=== PATIENT | female | born 1955 | race Caucasian/White ===

== ENCOUNTER → 2016-05-04 | Outpatient (REF) | payer BC ==
[~2016-05-04] MED LIST: LEVO25TA5 PO; MIRA3350 PO; NEXI40CA PO
[2016-05-04 11:46] LABS: MEAN CORPUSCULAR HEMOGLOBIN 31.9 pg (27.0-33.0); MEAN CORPUSCULAR VOLUME 93.8 fl (80.0-96.0); RED CELL DISTRIBUTION WIDTH 12.3 % (11.5-14.5)
[2016-05-04 11:58] LABS: ALBUMIN/GLOBULIN RATIO 1.25 (1.00-1.93); ALKALINE PHOSPHATASE 106 U/L (45-117); ALT/SGPT 27 U/L (12-78); ANION GAP 8 MEQ/L (8-16); AST/SGOT 16 U/L (15-37); BILIRUBIN,TOTAL 0.4 MG/DL (0.2-1.0); BLOOD UREA NITROGEN 15 MG/DL (7-18); CALCIUM LEVEL 9.4 MG/DL (8.5-10.1); CARBON DIOXIDE LEVEL 28 MEQ/L (21-32); CHLORIDE LEVEL 106 MEQ/L (98-107); CHOLESTEROL LEVEL 220 MG/DL (<200); CREATININE FOR GFR 0.84 MG/DL (0.55-1.02); GLOMERULAR FILTRATION RATE > 60.0 (>51); GLUCOSE, FASTING 113 MG/DL (70-105); POTASSIUM SERUM 4.9 MEQ/L (3.5-5.1); SODIUM LEVEL 142 MEQ/L (136-145); TOTAL PROTEIN 7.2 GM/DL (6.4-8.2); TRIGLYCERIDES LEVEL 255 MG/DL (<150)
== END ==
LOC: M SFHCLERA 07:53
PROVIDERS: ATTEND Physician Assistant
DX: K21.9 Gastro-esophageal reflux disease without esophagitis (principal); E78.2 Mixed hyperlipidemia; E55.9 Vitamin D deficiency, unspecified

== ENCOUNTER → 2016-06-10 | Outpatient (REF) | payer BC | LOC: M SFHCLERA 16:16 | PROVIDERS: ATTEND Physician Assistant | DX: J02.9 Acute pharyngitis, unspecified (principal) ==

== ENCOUNTER 2016-11-11 21:00 | Emergency (ER) | payer BC ==
[~2016-11-11] VITALS: Ht 165.1 cm; Wt 101.4 kg
[2016-11-11] MEDS ORDERED: MULT1CHW39 PO (21:16)
[2016-11-11] MEDS ORDERED: CALC500T49 PO (21:16)
[2016-11-11] MEDS ORDERED: PROBCAP4 PO (21:16)
[2016-11-11] MEDS ORDERED: VITA100067 PO (21:16)
[2016-11-11] MEDS ORDERED: ASPIRIN 81 MG CHEW TABLET PO ONE (22:15)
[2016-11-11] MEDS: NITROGLYCERIN 0.4 MG SUBL TABLET SL PRN ×2 (22:30→22:40)
[2016-11-11 22:50] LABS: BASO # 0.1 K/mm3 (0.0-0.2); EOS # 0.3 K/mm3 (0.0-0.50); EOS % 2.6 % (0.0-3.0); LARGE UNSTAINED CELL # 0.1 K/mm3 (0.0-0.4); LYMPH # 2.5 K/mm3 (1.5-4.5); LYMPH % 21.4 % (24.0-44.0); MEAN CORPUSCULAR HGB CONC 33.8 g/dl (32.0-36.5); MEAN CORPUSCULAR VOLUME 94.5 fl (80.0-96.0); MONO # 0.5 K/mm3 (0.0-0.8); MONO % 4.7 % (0.0-5.0); NEUTROPHILS # 7.8 K/mm3 (1.8-7.7); NEUTROPHILS % 69.3 % (36.0-66.0); PLATELET COUNT, AUTOMATED 229 k/mm3 (150-450); RED CELL DISTRIBUTION WIDTH 12.9 % (11.5-14.5); WHITE BLOOD COUNT 11.2 K/mm3 (4.0-10.0)
[2016-11-11 23:10] LABS: ANION GAP 7 MEQ/L (8-16); BLOOD UREA NITROGEN 15 MG/DL (7-18); CALCIUM LEVEL 9.3 MG/DL (8.5-10.1); CARBON DIOXIDE LEVEL 26 MEQ/L (21-32); CHLORIDE LEVEL 104 MEQ/L (98-107); CREATININE FOR GFR 0.86 MG/DL (0.55-1.02); GLOMERULAR FILTRATION RATE > 60.0 (>51); GLUCOSE, FASTING 119 MG/DL (70-105); POTASSIUM SERUM 4.7 MEQ/L (3.5-5.1); SODIUM LEVEL 137 MEQ/L (136-145)
[2016-11-12] MEDS ORDERED: HEPARIN DRIP 25,000 UNITS in APPROPRIATE DILUENT 1 EA IV SCH (05:14)
[2016-11-12] MEDS ORDERED: CLOPIDOGREL 300 MG TAB (PLAVIX) PO ONE (05:15)
[2016-11-12] MEDS ORDERED: HEPARIN SOD (PORCINE) 5000 UNITS/ML VIAL IV ONE (05:15)
[2016-11-12 06:28] LABS: INR 0.98
--- NOTE | 2016-11-12 06:32 | REP ---
Clinical: Chest pain . Comparison: None . Technique: PA and lateral. Findings: The mediastinum and cardiac silhouette are normal. The lung mccartney are clear and without acute consolidation, effusion, or pneumothorax. The skeletal structures are intact and normal. Impression: 1. No acute cardiopulmonary process. Signed by Curtis Gill MD 11/12/2016 01:10 A
[2016-11-12 06:39] VITALS: BP 134/78
--- NOTE | 2016-11-12 06:42 | ECGEPIP ---
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
--- NOTE | 2016-11-12 21:29 | ECGEPIP ---
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
[2017-01-13] MEDS ORDERED: NEXI40CA PO (08:32)
[2017-01-13] MEDS ORDERED: IRBE150T12 PO (08:32)
[2017-01-13] MEDS ORDERED: EFFI10TA4 PO (08:32)
[2017-01-13] MEDS ORDERED: PRED10TA2 PO (08:32)
== END 2016-11-12 06:49 | disposition short-term general hospital (02) ==
LOC: M ED 21:00
DX: I21.4 Non-ST elevation (NSTEMI) myocardial infarction (principal); F17.200 Nicotine dependence, unspecified, uncomplicated; Z82.49 Family history of ischemic heart disease and other diseases of the circulatory system; Z79.899 Other long term (current) drug therapy; Z88.0 Allergy status to penicillin

== ENCOUNTER 2016-12-07 11:26 | Emergency (ER) | payer BC ==
[~2016-12-07] VITALS: Ht 165.1 cm; Wt 101.3 kg
[~2016-12-07 11:26] MED LIST changes: +CALC500T49 PO; +MULT1CHW39 PO; +PROBCAP4 PO; +VITA100067 PO
[2016-12-07 11:56] LABS: BASO # 0.1 K/mm3 (0.0-0.2); BASO % 1.4 % (0.0-1.0); EOS # 0.4 K/mm3 (0.0-0.50); EOS % 4.6 % (0.0-3.0); LARGE UNSTAINED CELL # 0.2 K/mm3 (0.0-0.4); LYMPH # 2.3 K/mm3 (1.5-4.5); MEAN CORPUSCULAR HEMOGLOBIN 32.7 pg (27.0-33.0); MEAN CORPUSCULAR HGB CONC 34.6 g/dl (32.0-36.5); MEAN CORPUSCULAR VOLUME 94.5 fl (80.0-96.0); MONO # 0.5 K/mm3 (0.0-0.8); MONO % 5.7 % (0.0-5.0); NEUTROPHILS # 6.1 K/mm3 (1.8-7.7); NEUTROPHILS % 64.2 % (36.0-66.0); PLATELET COUNT, AUTOMATED 239 k/mm3 (150-450); RED CELL DISTRIBUTION WIDTH 12.5 % (11.5-14.5); WHITE BLOOD COUNT 9.4 K/mm3 (4.0-10.0)
[2016-12-07] MEDS ORDERED: ASPI81TA18 PO (11:56)
[2016-12-07] MEDS ORDERED: TURM500C3 PO (11:56)
[2016-12-07] MEDS ORDERED: ATOR40TA75 PO (11:56)
[2016-12-07] MEDS ORDERED: NITR0.4S14 (11:56)
[2016-12-07] MEDS ORDERED: PANT40TA2 PO (11:56)
[2016-12-07] MEDS ORDERED: METO1TAB32 PO (11:56)
[2016-12-07] MEDS ORDERED: LEVO50TA5 PO (11:56)
[2016-12-07] MEDS ORDERED: CLOP75TA2 PO (11:56)
[2016-12-07] MEDS ORDERED: GI COCKTAIL 50ML BTL(HYOSCYAMINE/MAALOX/LIDOCAINE VISCOUS)(1:3:1) PO ONE (12:00)
--- NOTE | 2016-12-07 12:11 | REP ---
Chest one-view HISTORY: Chest pain Comparison: 11/11/2016 The lungs are clear. The heart is normal in size. The pulmonary vasculature is normal in appearance. Impression: No acute disease. Signed by Phong Jarvis MD 12/07/2016 12:03 P
[2016-12-07 12:26] LABS: ALBUMIN/GLOBULIN RATIO 1.03 (1.00-1.93); ALKALINE PHOSPHATASE 116 U/L (45-117); ALT/SGPT 26 U/L (12-78); ANION GAP 8 MEQ/L (8-16); AST/SGOT 16 U/L (15-37); BILIRUBIN,DIRECT 0.1 MG/DL (0.0-0.2); BILIRUBIN,TOTAL 0.5 MG/DL (0.2-1.0); BLOOD UREA NITROGEN 18 MG/DL (7-18); CALCIUM LEVEL 9.3 MG/DL (8.5-10.1); CARBON DIOXIDE LEVEL 29 MEQ/L (21-32); CHLORIDE LEVEL 103 MEQ/L (98-107); CREATININE FOR GFR 0.87 MG/DL (0.55-1.02); GLOMERULAR FILTRATION RATE > 60.0 (>51); GLUCOSE, FASTING 112 MG/DL (70-105); POTASSIUM SERUM 4.6 MEQ/L (3.5-5.1); SODIUM LEVEL 140 MEQ/L (136-145); TOTAL PROTEIN 7.9 GM/DL (6.4-8.2)
[2016-12-07] MEDS ORDERED: SUCRALFATE SUSP 1GM/10ML UD PO ONE (14:30)
[2016-12-07] MEDS ORDERED: SUCR1SS PO (15:48)
[2016-12-07 18:27] VITALS: BP 111/59
--- NOTE | 2016-12-08 20:03 | ECGEPIP ---
Stationary ECG Study [facility] - ED Test Date: 2016-12-07 Pat Name: ROYCE BARAJAS Department: Room: - Gender: F Rn L And D: orsi : 1955 Requested By: Dali Watt Order Number: [id number] Reading MD: Brad Mcnair Measurements Intervals [place] Rate: 61 P: 29 RI: 150 QRS: -11 QRSD: 101 T: 21 QT: 419 QTc: 423 Interpretive Statements SINUS RHYTHM LEFTWARD AXIS DELAYED R WAVE PROGRESSION NONSPECIFIC ST T WAVE CHANGES 11/12/16 - RATE DECREASED Electronically Signed On 12-08-2016 20:03:17 EDT by Brad Mcnair
[2017-01-13] MEDS ORDERED: EFFI10TA4 PO (08:32)
[2017-01-13] MEDS ORDERED: IRBE150T12 PO (08:32)
[2017-01-13] MEDS ORDERED: NEXI40CA PO (08:32)
[2017-01-13] MEDS ORDERED: PRED10TA2 PO (08:32)
== END 2016-12-07 18:39 | disposition home or self-care (01) ==
LOC: M ED 11:26
DX: R07.9 Chest pain, unspecified (principal); I25.10 Atherosclerotic heart disease of native coronary artery without angina pectoris; K21.9 Gastro-esophageal reflux disease without esophagitis; Z87.891 Personal history of nicotine dependence; Z82.49 Family history of ischemic heart disease and other diseases of the circulatory system; Z79.82 Long term (current) use of aspirin; Z79.899 Other long term (current) drug therapy; Z88.0 Allergy status to penicillin; Z88.1 Allergy status to other antibiotic agents

== ENCOUNTER 2016-12-29 15:15 | Outpatient (RCR) | payer BC ==
[~2016-12-29 15:15] MED LIST changes: +ASPI81TA18 PO; +ATOR40TA75 PO; +CLOP75TA2 PO; +LEVO50TA5 PO; +METO1TAB32 PO; +NITR0.4S14; +PANT40TA2 PO; +SUCR1SS PO; +TURM500C3 PO
[2017-01-13] MEDS ORDERED: EFFI10TA4 PO (08:32)
[2017-01-13] MEDS ORDERED: IRBE150T12 PO (08:32)
[2017-01-13] MEDS ORDERED: PRED10TA2 PO (08:32)
[2017-01-13] MEDS ORDERED: NEXI40CA PO (08:32)
== END 2016-12-30 ==
LOC: M CR 15:15
PROVIDERS: ATTEND Internal Medicine Cardiovascular Disease
DX: Z51.89 Encounter for other specified aftercare (principal); Z95.5 Presence of coronary angioplasty implant and graft; I25.10 Atherosclerotic heart disease of native coronary artery without angina pectoris

== ENCOUNTER → 2017-01-10 | Outpatient (REF) | payer BC ==
[~2017-01-10] MED LIST changes: +EFFI10TA4 PO; +IRBE150T12 PO; +PRED10TA2 PO
[2017-01-10 12:38] LABS: ALBUMIN 4.2 GM/DL (3.2-5.2); ALBUMIN/GLOBULIN RATIO 1.35 (1.00-1.93); ALKALINE PHOSPHATASE 104 U/L (45-117); ALT/SGPT 27 U/L (12-78); ANION GAP 10 MEQ/L (8-16); AST/SGOT 10 U/L (15-37); BILIRUBIN,TOTAL 0.4 MG/DL (0.2-1.0); BLOOD UREA NITROGEN 15 MG/DL (7-18); CALCIUM LEVEL 9.1 MG/DL (8.5-10.1); CARBON DIOXIDE LEVEL 30 MEQ/L (21-32); CHLORIDE LEVEL 102 MEQ/L (98-107); CHOLESTEROL LEVEL 148 MG/DL (<200); CREATININE FOR GFR 0.86 MG/DL (0.55-1.02); GLOMERULAR FILTRATION RATE > 60.0 (>51); GLUCOSE, FASTING 88 MG/DL (70-105); SODIUM LEVEL 142 MEQ/L (136-145); TOTAL PROTEIN 7.3 GM/DL (6.4-8.2); TRIGLYCERIDES LEVEL 172 MG/DL (<150)
[2017-01-10 12:50] LABS: POTASSIUM SERUM 5.2 MEQ/L (3.5-5.1)
== END ==
LOC: M SFHCLERA 08:04
PROVIDERS: ATTEND Physician Assistant
DX: E78.2 Mixed hyperlipidemia (principal); R73.01 Impaired fasting glucose; E03.9 Hypothyroidism, unspecified

== ENCOUNTER → 2017-01-20 | Outpatient (CLI) | payer BC ==
[~2017-01-20] VITALS: Ht 165.1 cm; Wt 101.6 kg
[~2017-01-20] MED LIST changes: +NS 1,000 ML IV ONE
[2017-01-20 07:17] VITALS: BP 151/92
== END ==
LOC: M OPP 06:58
PROVIDERS: ATTEND Internal Medicine Gastroenterology
DX: Z53.9 Procedure and treatment not carried out, unspecified reason (principal)

== ENCOUNTER 2017-01-28 14:11 | Outpatient (RCR) | payer BC ==
[~2017-01-28 14:11] MED LIST changes: -NS 1,000 ML IV ONE
== END 2017-01-29 ==
LOC: M CR 14:11
PROVIDERS: ATTEND Internal Medicine Cardiovascular Disease
DX: Z51.89 Encounter for other specified aftercare (principal); I25.10 Atherosclerotic heart disease of native coronary artery without angina pectoris; Z95.5 Presence of coronary angioplasty implant and graft

== ENCOUNTER → 2017-03-22 | Outpatient (REF) | payer BC | LOC: M SFHCLERA 11:58 | PROVIDERS: ATTEND Physician Assistant | DX: E03.9 Hypothyroidism, unspecified (principal) ==

== ENCOUNTER → 2017-04-15 | Day surgery (SDC) | payer BC ==
[~2017-04-15] VITALS: Ht 165.1 cm; Wt 103.9 kg
[~2017-04-15] MED LIST changes: +NS 1,000 ML IV ONE; +XANA0.25 PO
== END | disposition home or self-care (01) ==
LOC: M OPP 08:41
PROVIDERS: ATTEND Internal Medicine Gastroenterology
DX: R12 Heartburn (principal); Z53.9 Procedure and treatment not carried out, unspecified reason

== ENCOUNTER → 2017-05-03 | Outpatient (REF) | payer BC | LOC: M SFHCLERA 11:03 | DX: J02.9 Acute pharyngitis, unspecified (principal) ==

== ENCOUNTER 2017-05-14 12:23 | Emergency (ER) | payer BC | END 2017-05-14 14:44 | disposition home or self-care (01) | LOC: M ED 12:23 | DX: M79.662 Pain in left lower leg (principal); I25.10 Atherosclerotic heart disease of native coronary artery without angina pectoris; I10 Essential (primary) hypertension; F41.9 Anxiety disorder, unspecified; Z87.891 Personal history of nicotine dependence; Z79.82 Long term (current) use of aspirin; Z79.899 Other long term (current) drug therapy; Z88.0 Allergy status to penicillin | CPT/HCPCS: 93971 ==

== ENCOUNTER 2017-06-17 07:13 | Day surgery (SDC) | payer BC ==
[~2017-06-17 07:13] MED LIST changes: -ASPI81TA18 PO; -ATOR40TA75 PO; -CALC500T49 PO; -CLOP75TA2 PO; -EFFI10TA4 PO; -IRBE150T12 PO; -LEVO25TA5 PO; -LEVO50TA5 PO; -METO1TAB32 PO; -MIRA3350 PO; -MULT1CHW39 PO; -NEXI40CA PO; -NITR0.4S14; -NS 1,000 ML IV ONE; -PANT40TA2 PO; -PRED10TA2 PO; -PROBCAP4 PO; +PROPOFOL 200 MG/20 ML VIAL As Ordered; -SUCR1SS PO; -TURM500C3 PO; -VITA100067 PO; -XANA0.25 PO
[2017-06-17] MEDS: NS 1,000 ML IV (07:48)
[2017-06-17] MEDS ORDERED: LIDOCAINE 2% INJ 100 MG/5 ML SDV (FOR ANES.) As Ordered (08:30)
[2017-06-17] MEDS ORDERED: fentaNYL 100 MCG/2 ML INJECTION (J3010) As Ordered (08:37)
== END 2017-06-17 09:38 | disposition home or self-care (01) ==
LOC: M OPP 07:13
DX: R12 Heartburn (principal); R07.89 Other chest pain; K44.9 Diaphragmatic hernia without obstruction or gangrene; E03.9 Hypothyroidism, unspecified; I51.9 Heart disease, unspecified; K57.90 Diverticulosis of intestine, part unspecified, without perforation or abscess without bleeding; I25.2 Old myocardial infarction; Z79.82 Long term (current) use of aspirin; Z79.899 Other long term (current) drug therapy; Z88.0 Allergy status to penicillin; Z88.1 Allergy status to other antibiotic agents
CPT/HCPCS: 43235

== ENCOUNTER → 2017-07-14 | Outpatient (REF) | payer BC ==
[2017-07-14 11:43] LABS: HEMOGLOBIN 15.4 g/dl (12.0-16.0); MEAN CORPUSCULAR HEMOGLOBIN 31.3 pg (27.0-33.0); MEAN CORPUSCULAR HGB CONC 33.5 g/dl (32.0-36.5); MEAN CORPUSCULAR VOLUME 93.5 fl (80.0-96.0); PLATELET COUNT, AUTOMATED 257 10^3/uL (150-450); RED BLOOD COUNT 4.92 10^6/uL (4.00-5.40); RED CELL DISTRIBUTION WIDTH 12.8 % (11.5-14.5); WHITE BLOOD COUNT 7.5 10^3/uL (4.0-10.0)
[2017-07-14 12:04] LABS: ESTIMATED AVERAGE GLUCOSE 137 MG/DL (60-110); HEMOGLOBIN A1c 6.4 %
[2017-07-14 12:08] LABS: ALBUMIN 4.2 GM/DL (3.2-5.2); ALBUMIN/GLOBULIN RATIO 1.31 (1.00-1.93); ALKALINE PHOSPHATASE 101 U/L (45-117); ALT/SGPT 42 U/L (12-78); ANION GAP 9 MEQ/L (8-16); AST/SGOT 22 U/L (7-37); BILIRUBIN,TOTAL 0.5 MG/DL (0.2-1.0); BLOOD UREA NITROGEN 17 MG/DL (7-18); CALCIUM LEVEL 9.2 MG/DL (8.5-10.1); CARBON DIOXIDE LEVEL 27 MEQ/L (21-32); CHLORIDE LEVEL 103 MEQ/L (98-107); CHOLESTEROL LEVEL 137 MG/DL (<200); CHOLESTEROL RISK RATIO 2.322 (<5); CREATININE FOR GFR 0.84 MG/DL (0.55-1.30); GLOMERULAR FILTRATION RATE > 60.0 (>51); GLUCOSE, FASTING 120 MG/DL (70-100); HDL CHOLESTEROL 59 MG/DL (>40); NON-HDL-C 78 MG/DL; POTASSIUM SERUM 4.6 MEQ/L (3.5-5.1); SODIUM LEVEL 139 MEQ/L (136-145); TOTAL PROTEIN 7.4 GM/DL (6.4-8.2); TRIGLYCERIDES LEVEL 200 MG/DL (<150)
== END ==
LOC: M SFHCLERA 08:22
DX: E78.2 Mixed hyperlipidemia (principal); I10 Essential (primary) hypertension; R73.01 Impaired fasting glucose
CPT/HCPCS: 80053

== ENCOUNTER 2017-08-29 17:43 | Emergency (ER) | payer BC ==
[2017-08-29] MEDS: ASPIRIN 81 MG CHEW TABLET PO ×2 (18:19→19:00)
[2017-08-29 18:49] LABS: BASO # 0.1 10^3/uL (0.0-0.2); BASO % 0.7 % (0.0-1.0); EOS # 0.2 10^3/uL (0.0-0.50); EOS % 2.3 % (0.0-3.0); HEMATOCRIT 39.7 % (36.0-47.0); HEMOGLOBIN 13.1 g/dl (12.0-15.5); IMMATURE GRANULOCYTE % 0.4 % (0-3.0); LYMPH # 2.5 10^3/uL (1.5-4.5); LYMPH % 30.2 % (24.0-44.0); MEAN CORPUSCULAR HEMOGLOBIN 30.9 pg (27.0-33.0); MEAN CORPUSCULAR VOLUME 93.6 fl (80.0-96.0); MONO # 0.6 10^3/uL (0.0-0.8); MONO % 7.3 % (0.0-5.0); NEUTROPHILS # 4.9 10^3/uL (1.8-7.7); NEUTROPHILS % 59.1 % (36.0-66.0); PLATELET COUNT, AUTOMATED 195 10^3/uL (150-450); RED BLOOD COUNT 4.24 10^6/uL (4.00-5.40); WHITE BLOOD COUNT 8.3 10^3/uL (4.0-10.0)
[2017-08-29] MEDS: NITROGLYCERIN 0.4 MG SUBL TABLET SL (18:56)
[2017-08-29] MEDS: NS 1,000 ML IV (18:57)
[2017-08-29 19:06] LABS: INR 0.94; PROTHROMBIN TIME 12.7 SECONDS (12.4-14.5)
[2017-08-29 19:25] LABS: ANION GAP 12 MEQ/L (8-16); BLOOD UREA NITROGEN 15 MG/DL (7-18); CALCIUM LEVEL 8.5 MG/DL (8.8-10.2); CARBON DIOXIDE LEVEL 22 MEQ/L (21-32); CHLORIDE LEVEL 106 MEQ/L (98-107); CPK CREATINE PHOSPHOKINASE 129 U/L (26-192); CREATININE FOR GFR 0.94 MG/DL (0.55-1.30); GLOMERULAR FILTRATION RATE > 60.0 (>45); GLUCOSE, FASTING 157 MG/DL (70-100); POTASSIUM SERUM 3.8 MEQ/L (3.5-5.1); SODIUM LEVEL 140 MEQ/L (136-145); TROPONIN I < 0.02 NG/ML (< 0.10)
[2017-08-29 19:26] LABS: CK-MB VALUE MASS 1.2 NG/ML (<3.6); MB/CK RELATIVE INDEX 0.93 (< OR =4); NT-PRO BNP 245 PG/ML (<125)
[2017-08-29] MEDS: MORPHINE 4 MG/ML 1ML VIAL/SYRINGE (J2270) IV (19:52)
[2017-08-29 21:34] LABS: CPK CREATINE PHOSPHOKINASE 103 U/L (26-192); TROPONIN I < 0.02 NG/ML (< 0.10)
[2017-08-29 21:35] LABS: CK-MB VALUE MASS 1.2 NG/ML (<3.6); MB/CK RELATIVE INDEX 1.16 (< OR =4)
== END 2017-08-29 22:49 | disposition home or self-care (01) ==
LOC: M ED 17:43
DX: I20.8 Other forms of angina pectoris (principal); R94.31 Abnormal electrocardiogram [ECG] [EKG]; I25.2 Old myocardial infarction; I10 Essential (primary) hypertension; E78.5 Hyperlipidemia, unspecified; Z87.891 Personal history of nicotine dependence; Z79.82 Long term (current) use of aspirin; Z79.899 Other long term (current) drug therapy; Z88.0 Allergy status to penicillin; Z88.1 Allergy status to other antibiotic agents
CPT/HCPCS: J2270

== ENCOUNTER → 2017-10-05 | Outpatient (REF) | payer BC | LOC: M SFHCLERA 10:35 | DX: N39.0 Urinary tract infection, site not specified (principal) | CPT/HCPCS: 87186 ==

== ENCOUNTER → 2017-10-18 | Outpatient (CLI) | payer BC | LOC: M LRY 11:11 | DX: R22.31 Localized swelling, mass and lump, right upper limb (principal) | CPT/HCPCS: 84443 ==

== ENCOUNTER → 2017-10-18 | Outpatient (REF) | payer BC ==
[2017-10-18 13:50] LABS: BASO # 0.1 10^3/uL (0.0-0.2); BASO % 0.9 % (0.0-1.0); EOS # 0.2 10^3/uL (0.0-0.50); EOS % 2.7 % (0.0-3.0); HEMATOCRIT 42.4 % (36.0-47.0); HEMOGLOBIN 14.5 g/dl (12.0-15.5); IMMATURE GRANULOCYTE % 0.2 % (0-3.0); LYMPH % 23.3 % (24.0-44.0); MEAN CORPUSCULAR HEMOGLOBIN 31.5 pg (27.0-33.0); MEAN CORPUSCULAR HGB CONC 34.2 g/dl (32.0-36.5); MEAN CORPUSCULAR VOLUME 92.2 fl (80.0-96.0); MONO # 0.7 10^3/uL (0.0-0.8); MONO % 8.6 % (0.0-5.0); NEUTROPHILS # 5.4 10^3/uL (1.8-7.7); NEUTROPHILS % 64.3 % (36.0-66.0); PLATELET COUNT, AUTOMATED 216 10^3/uL (150-450); RED CELL DISTRIBUTION WIDTH 12.3 % (11.5-14.5); WHITE BLOOD COUNT 8.5 10^3/uL (4.0-10.0)
[2017-10-18 14:00] LABS: INR 0.92; PROTHROMBIN TIME 12.4 SECONDS (12.4-14.5)
[2017-10-18 14:01] LABS: PARTIAL THROMBOPLASTIN TIME 32.3 SECONDS (26.8-37.9)
[2017-10-18 16:04] LABS: ALBUMIN 3.9 GM/DL (3.2-5.2); ALBUMIN/GLOBULIN RATIO 1.15 (1.00-1.93); ALKALINE PHOSPHATASE 112 U/L (45-117); ALT/SGPT 34 U/L (12-78); ANION GAP 9 MEQ/L (8-16); AST/SGOT 17 U/L (7-37); BILIRUBIN,TOTAL 0.4 MG/DL (0.2-1.0); BLOOD UREA NITROGEN 16 MG/DL (7-18); CALCIUM LEVEL 9.1 MG/DL (8.8-10.2); CARBON DIOXIDE LEVEL 27 MEQ/L (21-32); CHLORIDE LEVEL 104 MEQ/L (98-107); CREATININE FOR GFR 0.93 MG/DL (0.55-1.30); GLOMERULAR FILTRATION RATE > 60.0 (>45); GLUCOSE, FASTING 117 MG/DL (70-100); POTASSIUM SERUM 4.5 MEQ/L (3.5-5.1); SODIUM LEVEL 140 MEQ/L (136-145); TOTAL PROTEIN 7.3 GM/DL (6.4-8.2)
[2017-10-18 18:53] LABS: ESTIMATED AVERAGE GLUCOSE 128 MG/DL (60-110); HEMOGLOBIN A1c 6.1 %
== END ==
LOC: M SFHCLERA 10:49
DX: R22.31 Localized swelling, mass and lump, right upper limb (principal); R58 Hemorrhage, not elsewhere classified; E03.9 Hypothyroidism, unspecified; R73.01 Impaired fasting glucose

== ENCOUNTER → 2017-11-11 | Outpatient (REF) | payer BC ==
[2017-11-11 17:37] LABS: CHLAMYDIA DNA AMPLIFICATION NEGATIVE (NEGATIVE); GC DNA AMPLIFICATION NEGATIVE (NEGATIVE)
== END ==
LOC: M SFHCLERA 10:17
DX: N30.01 Acute cystitis with hematuria (principal)
CPT/HCPCS: 87186

== ENCOUNTER → 2017-12-22 | Outpatient (CLI) | payer BC | LOC: M LRY 13:01 | DX: R07.89 Other chest pain (principal) | CPT/HCPCS: G0463 ==

== ENCOUNTER → 2018-01-18 | Outpatient (REF) | payer BC | LOC: M SFHCLERA 07:37 | DX: E03.9 Hypothyroidism, unspecified (principal) | CPT/HCPCS: 84443 ==

== ENCOUNTER → 2018-05-22 | Outpatient (REF) | payer BC ==
[~2018-05-22] MED LIST changes: +ASPI81TA52 PO; +ATOR40TA75 PO; +CALC500T49 PO; +CITRCHW PO; +CLOP75TA2 PO; +EFFI10TA4 PO; +IBUP-1022 PO; +IRBE150T12 PO; +LEVO25TA5 PO; +LEVO50TA5 PO; +METO1TAB32 PO; +MIRA3350 PO; +MULT1CHW39 PO; +MULT1TAB10 PO; +NEXI40CA PO; +NITR0.4S14; +NITR0.4S14 SL; +PANT40TA3 PO; +PRED10TA2 PO; +PROBCAP4 PO; -PROPOFOL 200 MG/20 ML VIAL As Ordered; +SUCR1SS PO; +TURM500C3 PO; +VITA100067 PO; +VITA100072 PO; +XANA0.25 PO
[2018-05-22 20:41] LABS: BLOOD UREA NITROGEN 21 MG/DL (7-18); CARBON DIOXIDE LEVEL 26 MEQ/L (21-32); CHLORIDE LEVEL 101 MEQ/L (98-107); CREATININE FOR GFR 0.93 MG/DL (0.55-1.30); GLOMERULAR FILTRATION RATE > 60.0 (>45); GLUCOSE, FASTING 144 MG/DL (70-100); POTASSIUM SERUM 4.6 MEQ/L (3.5-5.1); SODIUM LEVEL 135 MEQ/L (136-145)
[2018-05-22 20:55] LABS: HEMOGLOBIN A1c 6.3 %
== END ==
LOC: M SFHCLERA 16:36
PROVIDERS: ATTEND Family Medicine
DX: R73.02 Impaired glucose tolerance (oral) (principal); I10 Essential (primary) hypertension

== ENCOUNTER → 2018-06-20 | Outpatient (CLI) | payer BC ==
--- NOTE | 2018-06-20 09:35 | REPMRS ---
Patient History The patient states she has not had a clinical breast exam in over a year. Family history of breast cancer at age 50 or over in maternal grandmother, ovarian cancer in mother, breast cancer in maternal aunt. Benign excisional biopsy of the left breast, 1975. Took estrogen for 20 years. Digital Woman Screen Mammo: June 20, 2018 - Exam #: [id number] Bilateral CC and MLO view(s) were taken. Technologist: Elvia Talavera, Technologist Prior study comparison: March 09, 2017, digital woman screen mammo performed at [facility]. November 27, 2015, digital woman screen mammo performed at [facility]. FINDINGS: There are scattered fibroglandular densities. There has been no change in the appearance of the mammogram from the prior studies. There is a mild amount of residual fibroglandular tissue which is fairly symmetric. There is no interval development of dominant mass, architectural distortion, or clustered microcalcification suggestive of malignancy. There are scattered, small, benign calcifications of doubtful clinical significance. Many of these are in the skin as proven by 3D tomosynthesis. 3-D tomosynthesis shows no additional findings. No significant changes when compared with prior studies. Assessment: BI-RADS/ACR category 2 mammogram. Benign Findings. Recommendation Routine screening mammogram in 1 year (for women over age 40). This mammogram was interpreted with the aid of an FDA-approved computer-aided dectection system. A. Negative x-ray reports should not delay biopsy if a dominant or clinically suspicious mass is present. B. Four to eight percent of cancers are not identified by mammography. C. Adenosis and dense breast may obscure an underlying neoplasm. Electronically Signed By: Eron Noel MD 06/20/18 [id number]
== END ==
LOC: M WHC 08:33
PROVIDERS: ATTEND Family Medicine
DX: Z12.31 Encounter for screening mammogram for malignant neoplasm of breast (principal); Z80.3 Family history of malignant neoplasm of breast

== ENCOUNTER 2018-08-01 08:23 | Day surgery (SDC) | payer BC ==
[~2018-08-01] VITALS: Ht 165.1 cm; Wt 105.7 kg
[~2018-08-01 08:23] MED LIST changes: +BRIL1TAB PO; +METF-414 PO; -MULT1CHW39 PO; +MULT200T7 PO; +VITA100018 PO; -VITA100072 PO; +ZOLO25TA PO
[2018-08-01] MEDS ORDERED: NS 1,000 ML IV ONE (09:15)
[2018-08-01] MEDS ORDERED: LIDOCAINE 2% INJ 100 MG/5 ML SDV (FOR ANES.) As Ordered ONE (10:23)
[2018-08-01] MEDS ORDERED: PROPOFOL 200 MG/20 ML VIAL As Ordered ONE ×2 (10:23→10:39)
--- NOTE | 2018-08-01 10:43 | ROOR ---
Patient Name: Caity Robin Procedure Date: 08/01/2018 10:20 AM Date of : 1955 Age: 62 Room: [facility] Gender: Female Note Status: Finalized Procedure: Colonoscopy Indications: High risk colon cancer surveillance: Personal history of colonic polyps (cecal tubulovillous adenoma), Last colonoscopy: June 2015 Providers: Dread LOVE MD Referring MD: Santosh SCHNEIDER MD Requesting Provider: Medicines: Monitored Anesthesia Care Complications: No immediate complications. Procedure: Pre-Anesthesia Assessment: - The heart rate, respiratory rate, oxygen saturations, blood pressure, adequacy of pulmonary ventilation, and response to care were monitored throughout the procedure. The Colonoscope was introduced through the anus and advanced to the cecum, identified by appendiceal orifice and ileocecal valve. The colonoscopy was performed without difficulty. The patient tolerated the procedure well. The quality of the bowel preparation was good. Findings: The perianal and digital rectal examinations were normal. Mild sigmoid diverticulosis and small internal hemorrhoids. The entire examined colon appeared normal on direct and retroflexion views. Impression: - Mild sigmoid diverticulosis and small internal hemorrhoids. - The entire examined colon is normal on direct and retroflexion views. - No specimens collected. Recommendation: - Repeat colonoscopy in 5 years for surveillance based on personal history of previous adenomatous polyps. Dread Love MD Dread LOVE MD 08/01/2018 10:42:34 AM Electronically signed by Dread LOVE MD Number of Addenda: 0 Note Initiated On: 08/01/2018 10:20 AM Estimated Blood Loss: Estimated blood loss: none.
[2018-08-01 11:00] VITALS: BP 121/84
== END 2018-08-01 11:12 | disposition home or self-care (01) ==
LOC: M OPP 08:23
PROVIDERS: ATTEND Internal Medicine Gastroenterology
DX: K57.30 Diverticulosis of large intestine without perforation or abscess without bleeding (principal); K64.8 Other hemorrhoids; Z86.010 Personal history of colon polyps

== ENCOUNTER → 2018-09-14 | Outpatient (REF) | payer BC ==
[2018-09-14 11:53] LABS: ALBUMIN 3.9 GM/DL (3.2-5.2); ALT/SGPT 41 U/L (12-78); BILIRUBIN,TOTAL 0.4 MG/DL (0.2-1.0); BLOOD UREA NITROGEN 17 MG/DL (7-18); CALCIUM LEVEL 8.8 MG/DL (8.8-10.2); CARBON DIOXIDE LEVEL 27 MEQ/L (21-32); CHLORIDE LEVEL 103 MEQ/L (98-107); CHOLESTEROL LEVEL 128 MG/DL (<200); CHOLESTEROL RISK RATIO 1.828 (<5); CREATININE FOR GFR 0.99 MG/DL (0.55-1.30); GLOMERULAR FILTRATION RATE > 60.0 (>45); GLUCOSE, FASTING 120 MG/DL (70-100); HDL CHOLESTEROL 70 MG/DL (>40); LDL CHOLESTEROL 31 MG/DL (<100); NON-HDL-C 58 MG/DL; POTASSIUM SERUM 4.4 MEQ/L (3.5-5.1); SODIUM LEVEL 137 MEQ/L (136-145); TOTAL PROTEIN 7.6 GM/DL (6.4-8.2); TRIGLYCERIDES LEVEL 134 MG/DL (<150)
[2018-09-14 12:04] LABS: HEMOGLOBIN A1c 6.1 %
== END ==
LOC: M SFHCLERA 08:31
PROVIDERS: ATTEND Family Medicine
DX: E03.9 Hypothyroidism, unspecified (principal); R73.02 Impaired glucose tolerance (oral); E78.5 Hyperlipidemia, unspecified; I10 Essential (primary) hypertension

== ENCOUNTER → 2019-04-17 | Outpatient (REF) | payer BC | LOC: M SFHCLERA 09:53 | PROVIDERS: ATTEND Family Medicine | DX: Z53.9 Procedure and treatment not carried out, unspecified reason (principal) ==

== ENCOUNTER → 2019-05-29 | Outpatient (REF) | payer BC ==
[2019-05-29 13:45] LABS: BLOOD UREA NITROGEN 20 MG/DL (7-18); CALCIUM LEVEL 10.3 MG/DL (8.8-10.2); CARBON DIOXIDE LEVEL 27 MEQ/L (21-32); CHLORIDE LEVEL 101 MEQ/L (98-107); CREATININE FOR GFR 0.95 MG/DL (0.55-1.30); GLOMERULAR FILTRATION RATE > 60.0 (>45); GLUCOSE, FASTING 116 MG/DL (70-100); POTASSIUM SERUM 4.4 MEQ/L (3.5-5.1); SODIUM LEVEL 136 MEQ/L (136-145)
[2019-05-29 13:50] LABS: HEMOGLOBIN A1c 6.6 %
== END ==
LOC: M SFHCLERA 09:57
PROVIDERS: ATTEND Family Medicine
DX: I10 Essential (primary) hypertension (principal); R73.02 Impaired glucose tolerance (oral)

== ENCOUNTER → 2019-07-12 | Outpatient (CLI) | payer BC ==
[~2019-07-12] MED LIST changes: -IRBE150T12 PO; +IRBE150T7 PO
--- NOTE | 2019-07-12 11:43 | REPMRS ---
Patient History The patient states she has not had a clinical breast exam in over a year. Family history of breast cancer at age 50 or over in maternal grandmother, ovarian cancer in mother, breast cancer in maternal aunt. Benign excisional biopsy of the left breast, 1975. Took estrogen for 20 years. Digital Woman Screen Mammo: July 12, 2019 - Exam #: [id number] Bilateral CC and MLO view(s) were taken. Technologist: Cathy Aguirre, Technologist Prior study comparison: June 20, 2018, bilateral digital woman screen mammo performed at [facility]. March 09, 2017, digital woman screen mammo performed at [facility]. November 27, 2015, digital woman screen mammo performed at [facility]. FINDINGS: There are scattered fibroglandular densities. There has been no change in the appearance of the mammogram from the prior studies. There is a mild amount of scattered fibroglandular density which is fairly symmetric. There is no interval development of dominant mass, architectural distortion, or grouped microcalcification suggestive of malignancy. 3-D tomosynthesis shows no additional findings. Assessment: BI-RADS/ACR category 1 mammogram. Negative Mammogram. Recommendation Routine screening mammogram of both breasts in 1 year (for women over age 40). This patient's Lifetime Breast Cancer Risk is estimated at 7.7 %. This mammogram was interpreted with the aid of an FDA-approved computer-aided dectection system. Electronically Signed By: Chet Sharif MD 07/12/19 [id number]
== END ==
LOC: M WHC 10:04
PROVIDERS: ATTEND Family Medicine
DX: Z12.31 Encounter for screening mammogram for malignant neoplasm of breast (principal)

== ENCOUNTER → 2019-07-19 | Outpatient (REF) | payer BC | LOC: M SFHCLERA 13:25 | PROVIDERS: ATTEND Nurse Practitioner Family | DX: R06.89 Other abnormalities of breathing (principal) | CPT/HCPCS: 87486; 87581; 87633; 87798; U0002 ==

== ENCOUNTER → 2019-07-19 | Outpatient (CLI) | payer BC ==
--- NOTE | 2019-07-19 13:35 | REP ---
Chest x-ray: Two views. History: Difficulty breathing. Comparison chest x-ray: December 19. Findings: The lungs are well inflated and clear. Pleural angles are sharp. Heart is not enlarged. Pulmonary vasculature is not increased. No significant bony abnormality. Impression: No acute disease. Electronically Signed by Juan M Sharif MD 07/19/2019 01:27 P
== END ==
LOC: M LRY 13:06
PROVIDERS: ATTEND Nurse Practitioner Family
DX: R06.89 Other abnormalities of breathing (principal)

== ENCOUNTER → 2019-08-15 | Outpatient (REF) | payer BC ==
[2019-08-15 11:42] LABS: BLOOD UREA NITROGEN 15 MG/DL (7-18); CALCIUM LEVEL 9.2 MG/DL (8.8-10.2); CARBON DIOXIDE LEVEL 31 MEQ/L (21-32); CHLORIDE LEVEL 107 MEQ/L (98-107); CREATININE FOR GFR 0.86 MG/DL (0.55-1.30); GLOMERULAR FILTRATION RATE > 60.0 (>45); GLUCOSE, FASTING 96 MG/DL (70-100); POTASSIUM SERUM 4.3 MEQ/L (3.5-5.1); SODIUM LEVEL 142 MEQ/L (136-145)
[2019-08-15 12:00] LABS: HEMOGLOBIN A1c 6.5 %
== END ==
LOC: M SFHCLERA 09:06
PROVIDERS: ATTEND Family Medicine
DX: R73.01 Impaired fasting glucose (principal)

== ENCOUNTER → 2019-10-28 | Outpatient (REF) | payer BC | LOC: M SFHCLERA 14:12 | PROVIDERS: ATTEND Physician Assistant | DX: R35.0 Frequency of micturition (principal) ==

== ENCOUNTER → 2019-11-21 | Outpatient (REF) | payer BC ==
[~2019-11-21] MED LIST changes: +PANT40TA29 PO; -PANT40TA3 PO
[2019-11-21 16:42] LABS: BLOOD UREA NITROGEN 11 MG/DL (7-18); CALCIUM LEVEL 9.3 MG/DL (8.8-10.2); CARBON DIOXIDE LEVEL 31 MEQ/L (21-32); CHLORIDE LEVEL 105 MEQ/L (98-107); CREATININE FOR GFR 0.86 MG/DL (0.55-1.30); GLOMERULAR FILTRATION RATE > 60.0 (>45); GLUCOSE, FASTING 95 MG/DL (70-100); POTASSIUM SERUM 4.9 MEQ/L (3.5-5.1); SODIUM LEVEL 137 MEQ/L (136-145)
[2019-11-21 16:57] LABS: CREATININE, URINE 81.1 MG/DL; MALB URINE SIEMENS < 5.0 MG/L; MAU/CREAT RATIO 6.1 MCG/MG (0.0-30.0)
== END ==
LOC: M SFHCLERA 12:06
PROVIDERS: ATTEND Family Medicine
DX: E11.9 Type 2 diabetes mellitus without complications (principal)

== ENCOUNTER → 2020-03-04 | Outpatient (CLI) | payer BC | LOC: M WUC 12:04 | PROVIDERS: ATTEND Nurse Practitioner Family | DX: E11.9 Type 2 diabetes mellitus without complications (principal) ==

== ENCOUNTER → 2020-04-15 | Outpatient (REF) | payer BC ==
[2020-04-15 13:59] LABS: APPEARANCE, URINE CLEAR (CLEAR); BACTERIA, URINE AUTO NEGATIVE (NEGATIVE); BILIRUBIN, URINE AUTO NEGATIVE (NEGATIVE); BLOOD, URINE BLOOD NEGATIVE (NEGATIVE); COLOR, URINE STRAW (YELLOW); GLUCOSE, URINE (UA) AUTO NEGATIVE (NEGATIVE); KETONE, URINE AUTO NEGATIVE (NEGATIVE); LEUKOCYTE ESTERASE, URINE AUTO NEGATIVE (NEGATIVE); NITRITE, URINE AUTO NEGATIVE (NEGATIVE); PROTEIN, URINE AUTO NEGATIVE (NEGATIVE); RBC, URINE AUTO 1 /HPF (0-3); SPECIFIC GRAVITY URINE AUTO 1.009 (1.002-1.035); SQUAMOUS EPITHELIAL CELL UR AU 1 /HPF (0-6); UROBILINOGEN, URINE AUTO 0.2 mg/dL (0.0-2.0); WBC, URINE AUTO 1 /HPF (0-3)
== END ==
LOC: M SMT 12:50
PROVIDERS: ATTEND Nurse Practitioner Women's Health
DX: N39.0 Urinary tract infection, site not specified (principal)

== ENCOUNTER → 2020-05-19 | Outpatient (CLI) | payer BC ==
[2020-05-19 16:58] LABS: HEMATOCRIT 47.3 % (36.0-47.0); HEMOGLOBIN 15.2 g/dl (12.0-15.5); MEAN CORPUSCULAR HEMOGLOBIN 31.3 pg (27.0-33.0); MEAN CORPUSCULAR HGB CONC 32.1 g/dl (32.0-36.5); MEAN CORPUSCULAR VOLUME 97.5 fl (80.0-96.0); PLATELET COUNT, AUTOMATED 271 10^3/uL (150-450); RED BLOOD COUNT 4.85 10^6/uL (4.00-5.40); WHITE BLOOD COUNT 7.2 10^3/uL (4.0-10.0)
[2020-05-19 17:12] LABS: ALBUMIN 4.2 GM/DL (3.2-5.2); ALT/SGPT 34 U/L (12-78); BILIRUBIN,TOTAL 0.5 MG/DL (0.2-1.0); BLOOD UREA NITROGEN 11 MG/DL (7-18); CALCIUM LEVEL 10.1 MG/DL (8.8-10.2); CARBON DIOXIDE LEVEL 29 MEQ/L (21-32); CHLORIDE LEVEL 105 MEQ/L (98-107); CHOLESTEROL LEVEL 144 MG/DL (<200); CHOLESTEROL RISK RATIO 2.057 (<5); CREATININE FOR GFR 0.97 MG/DL (0.55-1.30); GLOMERULAR FILTRATION RATE > 60.0 (>45); GLUCOSE, FASTING 109 MG/DL (70-100); HDL CHOLESTEROL 70 MG/DL (>40); LDL CHOLESTEROL 37 MG/DL (<100); NON-HDL-C 74 MG/DL; POTASSIUM SERUM 4.6 MEQ/L (3.5-5.1); SODIUM LEVEL 140 MEQ/L (136-145); TOTAL PROTEIN 7.6 GM/DL (6.4-8.2); TRIGLYCERIDES LEVEL 186 MG/DL (<150)
== END ==
LOC: M WUC 11:35
PROVIDERS: ATTEND Physician Assistant
DX: I10 Essential (primary) hypertension (principal); E78.2 Mixed hyperlipidemia

== ENCOUNTER 2020-06-13 12:11 | Emergency (ER) | payer BC ==
[~2020-06-13] VITALS: Ht 165.1 cm; Wt 107.5 kg
[~2020-06-13 12:11] MED LIST changes: -CIPR-249 PO
--- OUTSIDE RECORDS SUMMARY | 2020-06-13 12:22 | CCD | Continuity of Care Document ---
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 Name Role Phone Chet Cedillo AUTM [phone] Dread Love MD AUTM [phone] [place]ley Hill AUTM [phone] Santosh Martinez MD AUTM [phone] Phong Gunter DO AUTM [phone] Problems Active Problems Provider Date Patient post percutaneous transluminal coronary angiop lasty Dread Peterson MD Onset: 12/15/2016 Essential hypertension Dread Peterson MD Onset: 7 Hyperlipidemia Dread Peterson MD Onset: 12/15/2016 Obesity Dread Peterson MD Onset: 12/15/2016 Double coronary vessel disease Dread Peterson MD Onset: 0 12/15/2016 Gastroesophageal reflux disease Dread Peterson MD Onset: 12/15/2016 Mixed hyperlipidemia Dread Peterson MD Onset: 12/15/2016 Dietary management surveillance Dread Peterson MD Onset: 07/13/2017 Heart murmur Dread Peterson MD Onset: 07/13/2017 Precordial pain Dread Peterson MD Onset: 07/13/2017 Obstructive sleep apnea syndrome GAB Keenan Onset: 09/18/2018 Social History Type Date Description Comments Sex Unknown ETOH Use Occasionally consumes alcohol on ce a month Tobacco Use Start: Unknown End: Unknown Patient is a former smoker started at age 32, stopped at age 52, started again at age 59, stopped in October 2016 Smoking Status Reviewed: 11/21/19 Patient is a former smoker st arted at age 32, stopped at age 52, started again at age 59, stopped in October 2016 Exercise Type/Frequency Does housework daily Exercise Type/Frequency Walks sporadically Exercise Limitations Shortness Of Breath Exercise Limitations Fatigue Allergies, Adverse Reactions, Alerts Active Allergies Reaction Severity Comments Date Tetracycline rash/itchy 12/15/2016 Amoxicillin rash/itchy 12/15/2016 Penicillin throat swells 12/15/2016 Apryljasielgiovany Merna "itchy all over" 11/20/19 20 Medications Active Medications SIG Qnty Indications Ordering Provide r Date Metformin HCL 500mg Tablets 1 by mouth twice a day Santosh Martinez MD 11/20/2019 Esomeprazole Magnesium 40mg Capsul es DR 1 by mouth every day Santosh Martinez MD 11/20/2019 Levothyroxine Sodium 75mcg Tablets 1 by mouth every day Unknown 07/12/2017 Irbesartan 150mg Tablets Take One Tablet By Mouth Once Daily AT Bedtime 30tabs I10 Dread Peterson MD 12/15/2016 Aspirin Ec 81mg Tablets DR 1 by mouth every day Unknown 12/14/2016 Atorvastatin Calcium 40mg Tablets 1 by mouth every night at bedtime Unknown Nitroglycerin 0.4mg Tablets Sub 1 tab sl every 5 min times 3 doses as needed chest disc 30tabs D lisa Peterson MD 12/14/2016 Immunizations Description No Information Available Vital Signs Date Vital Result Comment 11/21/2019 12:58pm Weight 233.00 lb Home Weight 234lb Height 65 inches 5'5" BMI (Body Mass Index) 38.8 kg/m2 Heart Rate 72 /min BP Systolic Sitting 116 mmHg large cuff, Ra BP Diastolic Sitting 78 mmHg large cuff, Ra 03/21/2019 12:44pm Weight 237.00 lb Home Weight 236lb Height 65 inches 5'5" BMI (Body Mass Index) 39.4 kg/m2 Heart Rate 77 /min BP Systolic Sitting 108 mmHg large cuff, Ra BP Diastolic Sitting 76 mmHg large cuff, Ra Results Test Acquired Date Facility Test Result H/L Range Note Hemoglobin A1c 03/04/2020 [facility] - not interfaced (315)- - Hemoglobin A1c 6.0 BMP 11/21/2019 [facility] - not interfaced (315)- - Calcium Ser/Plasma Mass/Vol 9.3 Sodium 137 Carbon Dioxide Ser/Plasm 31 Chloride Serum/Plasma 105 Potassium 4.9 Glucose 95 70-100 Blood Urea Nitrogen 11 7-18 Creatinine 0.86 0.55-1.30 G F R >60.0 Hemoglobin A1c 11/21/2019 [facility] - not interfaced (315)- - Hemoglobin A1c 6.0 Procedures Date Code Description Status 11/21/2019 09378 ECG 12-Lead Completed Medical Devices Description No Information Available Encounters Type Date Location Provider Dx Diagnosis Office Visit 11/21/2019 1:00p Main Office GAB Keenan I25.1 0 Athscl heart disease of [place] coronary artery w/o ang pctrs I10 Essential (primary) hyperten enrique E78.2 Mixed hyperlipidemia G47.33 Obstructive sleep apnea ([place]) (pediatric) E66.09 Other obesity due to excess calories Z71.3 Dietary counseling and surve illance Assessments Date Code Description Provider 11/21/2019 I25.10 Atherosclerotic heart disease of [place] coronary artery with GAB Keenan 11/21/2019 I10 Essential (primary) hypertension GAB Keenan 11/21/2019 E78.2 Mixed hyperlipidemia GAB Brown 11/21/2019 G47.33 Obstructive sleep apnea (adult) (pediatric) GAB Keenan 11/21/2019 E66.09 Other obesity due to excess vi quyen GAB Keenan 11/21/2019 Z71.3 Dietary counseling and surveilla nce GAB Keenan Plan of Treatment Future Appointment(s):* 05/15/2020 10:15 am - GAB Miranda at Main Office 11/21/2019 - GAB Keenan* I25.10 Atherosclerotic heart disease of [place] coronary artery with* Recommendations:* Please talk with her primary care provider in regards to the addition of Farxiga or Jardiance. Continue aspirin and atorvastatin. Please call the office with any exertional chest pain or shortness of breath. * I10 Essential (primary) hypertension* Recommendations:* No medication changes were made today. * E78.2 Mixed hyperlipidemia* Recommendations:* Continue atorvastatin 40 mg. * G47.33 Obstructive sleep apnea (adult) (pediatric)* Recommendations:* Reinforced the consistent use of CPAP will assist in blood pressure reduction and promote nocturnal blood pressure dipping patterns. Negative effects of hypoxia during sleep were reviewed including impaired daytime cognition and level of alertness. * E66.09 Other obesity due to excess calories * Z71.3 Dietary counseling and surveillance* Recommendations:* Recommend adopting a more whole foods, plant-based diet in addition to moderate exercise a minimum of 30 minutes 6 days a week. In order to optimize cardiovascular health please be conscious of processed foods, alcohol (no more than two dr inks a day for men and one drink a day for women), salt (<2000 mg/d), oils, saturated fat/animal products, and highly refined carbohydrates such as breads, pastas, and sweets. * All * Follow up:* Follow up in 6 months. Functional Status Functional Condition Comment Date Status Independent with all ADL's Activ e Mental Status Description No Information Available Referrals Description No Information Available
--- OUTSIDE RECORDS SUMMARY | 2020-06-13 12:22 | CCD | Continuity of Care Document ---
Author Author Stress Nuclear/Reg Treadmill Caity Organization Unknown Address [address] [place] [address], [place] [address] Phone [phone] Care Team Providers Care Application Administrator Name Role Phone Chet Cedillo AUTM [phone] Dread Love MD AUTM [phone] [place] AUTM [phone] Santosh Martinez MD AUTM [phone] Phong Gunter DO AUTM [phone] Problems Active Problems Provider Date Patient post [...] sleep apnea syndrome GAB Keenan Onset: 09/18/2018 Dyspnea GAB Miranda Onset: 05/15/2020 Electrocardiogram abnormal GAB Miranda Onset: Social History Type Date Description Comments Sex Unknown ETOH Use Does not consume alcohol Tobacco Use Start: Unknown End: Unknown Patient is a former smoker started at age 32, stopped at age 52, started again at age 59, stopped in October 2016 Smoking Status Reviewed: 05/15/20 Patient is a former smoker [facility] an[facility] at age 32, stopped at age 52, started again at age 59, stopped in October 2016 Exercise Type/Frequency Does housework daily 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 Exercise Type/Frequency Walks daily Exercise Limitations Shortness Of Breath Exercise Limitations Fatigue Allergies, Adverse Reactions, Alerts Active Allergies Reaction Severity Comments Date Tetracycline rash/itchy 12/15/2016 Amoxicillin rash/itchy 12/15/2016 Penicillin throat swells 12/15/2016 Tessalon Merna "itchy all over" 11/20/19 20 Medications Active Medications SIG Qnty Indications Ordering Provide r Date Metformin HCL ER (Mod) 500mg Tablets ER 24HR 1 by mouth every day Santosh Martinez MD Esomeprazole Magnesium 40mg Capsul es DR 1 [...] Available Vital Signs Date Vital Result Comment 05/15/2020 10:40am Weight 236.00 lb Home Weight 234lb 2 days ago Height 65 inches 5'5" BMI (Body Mass Index) 39.3 kg/m2 Heart Rate 67 /min BP Systolic Sitting 124 mmHg large cuff, Ra BP Diastolic Sitting 78 mmHg large cuff, Ra 11/21/2019 12:58pm Weight 233.00 lb Home Weight 234lb Height 65 inches 5'5" BMI (Body Mass Index) 38.8 kg/m2 Heart Rate 72 /min BP Systolic Sitting 116 mmHg large cuff, Ra BP Diastolic Sitting 78 mmHg large cuff, Ra Results Test Acquired Date Facility Test Result H/L Range Note CBC without Differential 05/19/2020 [facility] - not inter faced (315)- - White Blood Count 7.2 4.0-10.0 Red Blood Count 4.85 4.00-5.40 Platelets 271 150-450 Hemoglobin 15.2 Hematocrit 47.3 CMP 05/19/2020 [facility] - not interfaced (315)- - Albumin Serum/Plasma 4.2 Alt - SGPT 34 Calcium Ser/Plasma Mass/Vol 10.1 Carbon Dioxide Ser/Plasm 29 Chloride Serum/Plasma 105 Alkaline Phosphatase 97 Potassium 4.6 Protein Total 7.6 Sodium 140 Ast - Sgot 19 BUN - Urea Nitrogen 11 Glucose 109 High 70-100 Creatinine For GFR 0.97 Lipid Profile/Cardiac Risk Pro 05/19/2020 [facility] - not interfaced (315)- - Triglycerides 186 High <150 Cholesterol 144 <200 HDL 70 >40.0 LDL Cholesterol 37 Chol/HDL Ratio 2.057 <5 Hemoglobin A1c 03/04/2020 [facility] - not interfaced (315)- - Hemoglobin A1c 6.0 Procedures Date Code Description Status 05/27/2020 20316 Echocardiogram 2-D Doppler Color Completed 05/15/2020 28090 ECG 12-Lead Completed Medical Devices Description No Information Available Encounters Type Date Location Provider Dx Diagnosis Office Visit 05/15/2020 10:15a Main Office GAB Miranda I25 .10 Athscl heart disease of [place] coronary artery w/o ang pctrs R06.02 Shortness of breath I10 Essential (primary) hyperten enrique E78.2 Mixed hyperlipidemia G47.33 Obstructive sleep apnea ([place]) (pediatric) R94.31 Abnormal electrocardiogram [ ECG] [EKG] E66.09 Other obesity due to excess calories Z71.3 Dietary counseling and surve illance Assessments Date Code Description Provider 06/09/2020 I25.10 Atherosclerotic heart disease of [place] coronary artery with Stress Nuclear/Reg Treadmill 06/09/2020 R06.02 Shortness of breath Stress Nucle ar/Reg Treadmill 06/09/2020 R07.2 Precordial pain Stress Nuclear/R eg Treadmill 06/09/2020 R94.31 Abnormal electrocardiogram [ECG] [EKG] Stress Nuclear/Reg Treadmill 05/27/2020 R06.02 Shortness of breath ECHO 05/27/2020 R07.2 Precordial pain ECHO 05/15/2020 I25.10 Atherosclerotic heart disease of [place] coronary artery with GAB Miranda 05/15/2020 R06.02 Shortness of breath GAB Miranda 05/15/2020 I10 Essential (primary) hypertension GAB Miranda 05/15/2020 E78.2 Mixed hyperlipidemia GAB Lowry 05/15/2020 G47.33 Obstructive sleep apnea (adult) (pediatric) GAB Miranda 05/15/2020 R94.31 Abnormal electrocardiogram [ECG] [EKG] GAB [place]nada 05/15/2020 E66.09 Other obesity due to excess vi quyen GAB Miranda 05/15/2020 Z71.3 Dietary counseling and surveilla nce GAB Miranda Plan of Treatment Future Appointment(s):* 06/13/2020 11:30 am - GAB Miranda at Main Office 05/15/2020 - GAB Miranda* I25.10 Atherosclerotic heart disease of [place] coronary artery with* Recommendations:* Due to patient's history and onset of symptoms, a repeat stress SPECT has been ordered for further evaluation Advised patient on the instruction and when to use nitroglycerin therapy, prescription sent to pharmacy Advised patient to please contact the office with any change in symptoms Continue aspirin, atorvastatin, and irbesartan at current dosages * R06.02 Shortness of breath* Recommendations:* Echocardiogram Doppler ordered for further evaluation Advised patient to please avoid activities that trigger her shortness of breath at this time and to contact our office with any new or worsening symptoms * I10 Essential (primary) hypertension* New Labs:* CMP & CBC, Ordered: 05/15/20 * Recommendations:* Continue irbesartan at current dosage * E78.2 Mixed hyperlipidemia* New Labs:* Lipid Panel, Ordered: 05/15/20 * Recommendations:* Please obtain labs Continue atorvastatin at current dosage * G47.33 Obstructive sleep apnea (adult) (pediatric)* Recommendations:* Reinforced the consistent use of CPAP will assist in blood pressure reduction and promote nocturnal blood pressure dipping patterns. Negative effects of hypoxia during sleep were reviewed including impaired daytime cognition and level of alertness. * R94.31 Abnormal electrocardiogram [ECG] [EKG]* Recommendations:* No further evaluation is needed at this time. * E66.09 Other obesity due to excess calories* Recommendations:* Recommended for patient to follow a more whole food diet. Advised patient to avoid overly processed foods and packaged foods. Advised patient to avoid sodas, juices and other liquid calories. Recommended at least 30 minutes of exercise 3 days a week. * Z71.3 Dietary counseling and surveillance * All * Follow up:* CV after cardiac testing Functional Status Functional Condition Comment Date Status Independent with all ADL's Activ e Mental Status Description No Information Available Referrals Description No Information Available
--- OUTSIDE RECORDS SUMMARY | 2020-06-13 12:22 | CCD | Continuity of Care Document ---
Author Author Caity GUTIERREZ Organization Unknown Address [address] [place] [address], [place] [address] Phone [phone] Care Team Providers Care Hand Etcher Name Role Phone Chet Cedillo AUTM [phone] Dread Loev MD AUTM [phone] Hayley Hill AUTM [phone] Santosh Martinez MD AUTM [phone] Phong Gunter DO AUTM [phone] Problems Active Problems Provider Date Patient post percutaneous transluminal coronary angiop lasty Dread Peterson MD Onset: 12/15/2016 Essential hypertension Dread Peterson MD Onset: 7 Hyperlipidemia Dread Peterson MD Onset: 12/15/2016 Obesity Dread Peterson MD Onset: 12/15/2016 Double coronary vessel disease Dread Peterson MD Onset: 0 12/15/2016 Gastroesophageal reflux disease Dread Peterson MD Onset: 12/15/2016 Mixed hyperlipidemia Draed Peterson MD Onset: 12/15/2016 Dietary management surveillance [...] Exercise Type/Frequency Does housework daily 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 Exercise Type/Frequency Walks daily Exercise Limitations Shortness Of Breath Exercise Limitations Fatigue Allergies, Adverse Reactions, Alerts Active Allergies Reaction Severity Comments Date Tetracycline rash/itchy 12/15/2016 Amoxicillin rash/itchy 12/15/2016 Penicillin throat swells 12/15/2016 Tessalon Perles "itchy all over" 11/20/19 20 Medications Active [...] H/L Range Note CBC without Differential 05/19/2020 [facility] - not inter faced (315)- - White Blood Count 7.2 4.0-10.0 Red Blood Count 4.85 4.00-5.40 Platelets 271 150-450 Hemoglobin 15.2 Hematocrit 47.3 CMP 05/19/2020 [facility] - not interfaced (315)- - Albumin Serum/Plasma 4.2 Alt - SGPT 34 Calcium Ser/Plasma Mass/Vol 10.1 Carbon Dioxide Ser/Plasm 29 Chloride Serum/Plasma 105 Alkaline Phosphatase 97 Potassium 4.6 Protein Total 7.6 Sodium 140 Ast - Sgot 19 BUN - Urea Nitrogen 11 Glucose 109 High 70-100 Creatinine For GFR 0.97 Lipid Profile/Cardiac Risk Pro 05/19/2020 [facility] - not interfaced (315)- - Triglycerides 186 High <150 Cholesterol 144 <200 HDL 70 >40.0 LDL Cholesterol 37 Chol/HDL Ratio 2.057 <5 Hemoglobin A1c 03/04/2020 [facility] - not interfaced (315)- - Hemoglobin A1c 6.0 Procedures Date Code Description Status 05/27/2020 39783 Echocardiogram 2-D Doppler Color Completed 05/15/2020 70521 ECG 12-Lead Completed Medical Devices Description No Information Available Encounters Type Date Location Provider Dx Diagnosis Office Visit 05/15/2020 10:15a Main Office GAB Miranda I25 .10 Athscl heart disease of [place] coronary artery w/o ang pctrs R06.02 Shortness of breath I10 Essential (primary) hyperten enrique E78.2 Mixed hyperlipidemia G47.33 Obstructive sleep apnea ([place]) (pediatric) R94.31 Abnormal electrocardiogram [ ECG] [EKG] E66.09 Other obesity due to excess calories Z71.3 Dietary counseling and surve illance Assessments Date Code Description Provider 05/27/2020 R06.02 Shortness of breath ECHO 05/27/2020 R07.2 Precordial pain ECHO 05/15/2020 I25.10 Atherosclerotic heart disease of [place] coronary artery with GAB Miranda 05/15/2020 R06.02 Shortness of breath GAB Miranda 05/15/2020 I10 Essential (primary) hypertension GAB Miranda 05/15/2020 E78.2 Mixed hyperlipidemia GAB Lowry 05/15/2020 G47.33 Obstructive sleep apnea (adult) (pediatric) GAB Miranda 05/15/2020 R94.31 Abnormal electrocardiogram [ECG] [EKG] GAB Miranda 05/15/2020 E66.09 Other obesity due to excess vi quyen GAB Miranda 05/15/2020 Z71.3 Dietary counseling and surveilla nce GAB Miranda Plan of Treatment Future Appointment(s):* 06/09/2020 9:30 am - GAB Miranda at Main Office * 06/02/2020 8:30 am - Stress Nuclear/Reg Treadmill at Main Office 05/15/2020 - GAB Miranda* I25.10 Atherosclerotic heart disease of [place] coronary artery with* New Xrays:* NM Heart Myocardial Perfusion Spect Multiple Studies, Scheduled: 06/02/20 * Recommendations:* Due to patient's history and onset [...]
--- OUTSIDE RECORDS SUMMARY | 2020-06-13 12:22 | CCD | Continuity of Care Document ---
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 Exercise Type/Frequency Walks daily Exercise Limitations Shortness Of Breath Exercise Limitations Fatigue Allergies, Adverse Reactions, Alerts Active Allergies Reaction Severity Comments Date Tetracycline rash/itchy 12/15/2016 Amoxicillin rash/itchy 12/15/2016 Penicillin throat swells 12/15/2016 Dory Bauman "itchy all over" 11/20/19 20 Medications Active [...] disc 30tabs D lisa Peterson MD 12/14/2016 History Medications Metformin HCL 500mg Tablets 1 by mouth twice a day Santosh Martinez MD 11/20/2019 - 0 05/14/2020 Immunizations Description No Information Available Vital Signs [...] H/L Range Note CBC without Differential 05/19/2020 [facility] - not inter faced (315)- - White Blood Count 7.2 4.0-10.0 Red Blood Count 4.85 4.00-5.40 Platelets 271 150-450 Hemoglobin 15.2 Hematocrit 47.3 CMP 05/19/2020 [facility] - not interfaced (315)- - Albumin Serum/Plasma 4.2 Alt - SGPT 34 Calcium Ser/Plasma Mass/Vol 10.1 Carbon Dioxide Ser/Plasm 29 Chloride Serum/Plasma 105 Alkaline Phosphatase 97 Potassium 4.6 Protein Total 7.6 Sodium 140 Ast - Sgot 19 BUN - Urea Nitrogen 11 Glucose 109 High 70-100 Creatinine For GFR 0.97 Lipid Profile/Cardiac Risk Pro 05/19/2020 [facility] - not interfaced (315)- - Triglycerides 186 High <150 Cholesterol 144 <200 HDL 70 >40.0 LDL Cholesterol 37 Chol/HDL Ratio 2.057 <5 Hemoglobin A1c 03/04/2020 [facility] - not interfaced (315)- - Hemoglobin A1c 6.0 BMP 11/21/2019 [facility] - not interfaced (315)- - Calcium Ser/Plasma Mass/Vol 9.3 Sodium 137 Carbon Dioxide Ser/Plasm 31 Chloride Serum/Plasma 105 Potassium 4.9 Glucose 95 70-100 Blood Urea Nitrogen 11 7-18 Creatinine 0.86 0.55-1.30 G F R >60.0 Hemoglobin A1c 11/21/2019 [facility] - not interfaced (315)- - Hemoglobin A1c 6.0 Procedures Date Code Description Status 05/15/2020 00274 ECG 12-Lead Completed 11/21/2019 06796 ECG 12-Lead Completed Medical Devices Description No Information Available Encounters Type Date Location Provider Dx Diagnosis Office Visit 05/15/2020 10:15a Main Office GAB Miranda I25 .10 Athscl heart disease of [place] coronary artery w/o ang pctrs R06.02 Shortness of breath I10 Essential (primary) hyperten enrique E78.2 Mixed hyperlipidemia G47.33 Obstructive sleep apnea ([place]) (pediatric) R94.31 Abnormal electrocardiogram [ ECG] [EKG] E66.09 Other obesity due to excess calories Z71.3 Dietary counseling and surve illance Office Visit 11/21/2019 1:00p Main Office GBA Keenan I25.1 0 Athscl heart disease of [place] coronary artery w/o ang pctrs I10 Essential (primary) hyperten enrique E78.2 Mixed hyperlipidemia G47.33 Obstructive sleep apnea ([place]) (pediatric) E66.09 Other obesity due to excess calories Z71.3 Dietary counseling and surve illance Assessments Date Code Description Provider 05/15/2020 I25.10 Atherosclerotic heart disease of [place] coronary artery with GAB Miranda 05/15/2020 R06.02 Shortness of breath GAB Miranda 05/15/2020 I10 Essential (primary) hypertension GAB Miranda 05/15/2020 E78.2 Mixed hyperlipidemia GAB Lowry 05/15/2020 G47.33 Obstructive sleep apnea (adult) (pediatric) GAB Miranda 05/15/2020 R94.31 Abnormal electrocardiogram [ECG] [EKG] GAB Miranda 05/15/2020 E66.09 Other obesity due to excess vi quyen GAB Miranda 05/15/2020 Z71.3 Dietary counseling and surveilla nce GAB Miranda 11/21/2019 I25.10 Atherosclerotic heart disease of [place] coronary artery with GAB Keenan 11/21/2019 I10 Essential (primary) hypertension GAB Keenan 11/21/2019 E78.2 Mixed hyperlipidemia GAB Brown 11/21/2019 G47.33 Obstructive sleep apnea (adult) (pediatric) GAB Keenan 11/21/2019 E66.09 Other obesity due to excess vi quyen GAB Keenan 11/21/2019 Z71.3 Dietary counseling and surveilla nce GAB Keenan Plan of Treatment Future Appointment(s):* 06/09/2020 9:30 am - GAB Miranda at Main Office * 06/02/2020 8:30 am - Stress Nuclear/Reg Treadmill at Main Office * 05/27/2020 9:00 am - ECHO at Main Office 05/15/2020 - GAB Miranda* I25.10 Atherosclerotic heart disease of [place] coronary artery with* New Xrays:* NM Heart [...] current dosages * R06.02 Shortness of breath* New Xrays:* US Echocardiogram Transthoracic W Doppler And Color Flow, Scheduled: 05/27/20 * Recommendations:* Echocardiogram Doppler ordered for further evaluation [...]
--- OUTSIDE RECORDS SUMMARY | 2020-06-13 12:23 | CCD ---
Author Author [facility] Organization [facility] Address Unknown Phone Unavailable Care Team Providers Care No Experience Name Role Phone Jenny Paula Unavailable PROBLEMS Type Condition ICD9-CM Code [id number] Code Onset Dates Condition S tatus SNOMED Code Notes Problem Diverticulosis of large intestine without hemorrhage K57.30 Active 344310245 Problem Irritable bowel syndrome, unspecified type K58.9 Active 23433521 Problem Vitamin D deficiency E55.9 Active 24407424 Problem Gastroesophageal reflux disease, esophagitis pre sence not specified K21.9 Active 349238353 Problem Mixed hyperlipidemia E78.2 Active 041113186 Problem Hiatal hernia K44.9 Active 69811247 Problem History of non-ST elevation myocardial infarction (NSTEMI) I25.2 Active 062385594 Problem Tobacco use Z72.0 Active 493012703 Problem Impaired fasting glucose R73.01 Active 4835974 07 Problem Atherosclerosis of [place] ronary artery of [place] heart without angina pectoris I25.10 Active 5214870553634 Stenting of distal LAD and mid RCA 10/2016 Problem Influenza vaccination declined Z28.21 Active 3 12169641 Problem Dyslipidemia E78.5 Active 060988562 Problem JESSICA (obstructive sleep apnea) G47.33 Active 78 104773 Problem Type 2 diabetes mellitus wit hout complication, without long-term current use of insulin E11.9 Active 035019213 Problem Hypothyroidism, unspecified type E03.9 Active 51884330 Problem Penicillin allergy Z88.0 Active 95175789 Problem Adjustment disorder with depressed mood F43.21 Active 07273566 Problem Anxiety F41.9 Active 04053824 Problem Essential hypertension I10 Active 81926580 Problem Acquired hypothyroidism E03.9 Active 14280858 2 Problem Moderate episode of recurrent major depressive disorder F33.1 Active 607133436 Problem Major depressive disorder, recurrent, moderate F33 .1 Active 303822041 Problem Chronic GERD K21.9 Active 291830322 Problem Sinusitis, unspecified chronicity, unspecified location J32.9 Active 79362207 ALLERGIES Allergen (clinical drug ingredient) Drug/Non Drug Allergy do cumented on EMR Reaction Allergy Type Onset Date Status tetracycline Tetracycline HCl([facility] Code:[address]-94) itching Drug Allergy Active penicillin V Penicillin V Potassium([facility] Code:[address]-22) A naphylaxis Drug Allergy Active amoxicillin / clavulanate Augmentin([facility] Code:[address]-77) Diar helena Drug Allergy Active benzonatate Tessalon Perles([facility] Code:[address]-53) itchy Drug A llergy Active Pt states all "cillins" Anaphylaxis Non Drug Allergy Active Penicillin (For Allergies Use Only) anaphylaxis Drug Aller gy Active ENCOUNTERS from 1955 to 2020-04-18 Encounter Location Date Provider Diagnosis [facility] [address] [place] [address], Jenny Paula Chronic GERD K21.9 IMMUNIZATIONS Vaccine Route Administration Date Status Influenza (18 yrs & older) Flublok Unknown May 22, 2018 Refused Solu-Medrol 125mg (Methylprednisolone) IM Intramuscular July Administered Influenza (6mo & up) Fluzone Unknown May 29, 2016 Oth ers SOCIAL HISTORY Tobacco Use: Social History Observation Description Date Details (start date - stop date) Former Smoker Sex Assigned At : Social History Observation Description Sex Assigned At Unknown Education: Question Answer Notes Level of Education: High School Audit Question Answer Notes Total Score: 1 Interpretation: Alcohol Education Language: Question Answer Notes Languages spoken: Lebanese Gnosticist: Question Answer Notes 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 Ye s Points 2 Interpretation Negative How many drinks did you have on a typica l day when you were drinking in the past year? 3 or 4 (1 point) How often did you have a drink containing alcohol in t he past year? Monthly or less (1 point) BMI Care Goal Follow-Up Question Answer Notes Above Normal BMI Follow-Up Dietary management educatio n, guidance, and counseling Tobacco Use: Question Answer Notes Are you a: former smoker quit a while ago REASON FOR REFERRAL No Information VITAL SIGNS No information MEDICATIONS Medication SIG (Take, Route, Frequency, Duration) Notes Start Da te End Date Status Metformin HCl 500 MG 1 tablet with a meal Orally Once a day Active Azithromycin 250 MG 2 tablet on the first day, then 1 tablet daily for 4 days Orally Once a day for 5 day(s) Mar, N ot-Taking ProAir HFA 108 (90 Base) MCG/ACT 2 puffs as needed Inh alation every 4 hrs for 10 day(s) Jun, Not-Taking Claritin 10 MG 1 tablet Orally Once a day for 30 day(s) Not-Taking Bactrim DS 800-160 MG 1 tablet Orally Twice a day for 5 day(s) Sep, Not-Taking Atorvastatin Calcium 40MG 1 tablet Orally Once a day for 90 days Active Irbesartan 150 MG 1 tablet Orally Once a day for 90 days Active Levothyroxine Sodium 75 MCG 1 tablet Orally Once a day for 90 Active Xanax 0.5 MG 0.5 tablet Orally Twice a day PRN anxiety MDD=2 for 5 da ys Not-Taking Macrobid 100 MG 1 cap Orally bid for 14 day(s) Apr, 0 Active Aspirin 81 MG 1 tablet Orally Once a day Active Nexium 40MG 1 capsule Orally Once a day for 90 days Active Nitrofurantoin Monohyd Macro 100 MG TAKE 1 CAPSULE BY MOUTH TWICE DAILY FOR 7 DAYS Oral for 7 Not-Taking PROCEDURES No Information RESULTS No Results REASON FOR VISIT omeprazole MEDICAL (GENERAL) HISTORY Type Description Date Medical History GERD/hiatal hernia/h/o gastritis Medical History arthritis Medical History Diverticulitis Medical History HLP Medical History HTN Medical History Hypothyroidism Medical History Anxiety Medical History IBS Medical History allergic rhinitis Medical History vitamin d deficiency Medical History JESSICA, has machine at home, last had sleep study Surgical History complete hysterectomy Surgical History lump removal left breast Surgical History x 2 Surgical History stent placement 10/2016 Surgical History colonoscopy Surgical History endoscopy Hospitalization History childbirth Hospitalization History see surgeries Hospitalization History 10/2016 Goals Section No Information Health Concerns No Information MEDICAL EQUIPMENT No Information MENTAL STATUS No Information FUNCTIONAL STATUS No Information ASSESSMENTS Encounter Date Diagnosis Assessment Notes Treatment Notes Treatm ent Clinical Notes Apr, Chronic GERD (ICD-10 - K21.9) PLAN OF TREATMENT Medication Medication Name Sig Start Date Stop Date Macrobid 100 MG 1 cap Orally bid for 14 day(s) Apr, Nexium 40MG 1 capsule Orally Once a day for 90 days Next Appt Details Provider Name:Azul Samano, 2020-05-19 02:00:00 PM, [address] [facility] [address], [place], [address] Insurance Providers Payer Name Payer Address Payer Phone Insured Name Patient Relati onship to Insured Coverage Start Date Coverage End Date BS [place] [facility] [address] [facility] [id number] ROYCE BARAJAS self
--- OUTSIDE RECORDS SUMMARY | 2020-06-13 12:23 | CCD ---
Author Author [facility] Organization [facility] Address Unknown Phone Unavailable Care Team Providers Care Dot Net Developer Name Role Phone Azul Samano Unavailable PROBLEMS Type Condition ICD9-CM Code HBP45-MG Code Onset Dates Condition S tatus SNOMED Code Notes Problem Diverticulosis of large intestine without hemorrhage K57.30 Active 190833192 Problem Irritable bowel syndrome, unspecified type K58.9 Active 98528575 Problem Vitamin D deficiency E55.9 Active 73821398 Problem Gastroesophageal reflux disease, esophagitis pre sence not specified K21.9 Active 175838463 Problem Mixed hyperlipidemia E78.2 Active 332445795 Problem Hiatal hernia K44.9 Active 84787045 Problem History of non-ST elevation myocardial infarction (NSTEMI) I25.2 Active 716769647 Problem Tobacco use Z72.0 Active 361793325 Problem Impaired fasting glucose R73.01 Active 5537876 07 Problem Atherosclerosis of [place] ronary artery of [place] heart without angina pectoris I25.10 Active 2056387036824 Stenting of distal LAD and mid RCA 10/2016 Problem Influenza vaccination declined Z28.21 Active 3 69510212 Problem Dyslipidemia E78.5 Active 866650320 Problem JESSICA (obstructive sleep apnea) G47.33 Active 78 182501 Problem Type 2 diabetes mellitus wit hout complication, without long-term current use of insulin E11.9 Active 590201982 Problem Hypothyroidism, unspecified type E03.9 Active 49700042 Problem Penicillin allergy Z88.0 Active 21123897 Problem Adjustment disorder with depressed mood F43.21 Active 65767700 Problem Anxiety F41.9 Active 60296422 Problem Essential hypertension I10 Active 78450345 Problem Acquired hypothyroidism E03.9 Active 32576576 2 Problem Moderate episode of recurrent major depressive disorder F33.1 Active 367217646 Problem Major depressive disorder, recurrent, moderate F33 .1 Active 077520201 Problem Chronic GERD K21.9 Active 278369337 Problem Sinusitis, unspecified chronicity, unspecified location J32.9 Active 23629741 ALLERGIES Allergen (clinical drug ingredient) Drug/Non Drug Allergy do cumented on EMR Reaction Allergy Type Onset Date Status tetracycline Tetracycline HCl([facility] Code:[address]-11) itching Drug Allergy Active penicillin V Penicillin V Potassium([facility] Code:[address]-69) A naphylaxis Drug Allergy Active amoxicillin / clavulanate Augmentin([facility] Code:[address]-47) Diar helena Drug Allergy Active benzonatate Tessalon Perles([facility] Code:[address]-38) itchy Drug A llergy Active Pt states all "cillins" Anaphylaxis Non Drug Allergy Active Penicillin (For Allergies Use Only) anaphylaxis Drug Aller gy Active ENCOUNTERS from 1955 to 2020-04-18 Encounter Location Date Provider Diagnosis [address] [address] 16 Apr Azul Samano Major depressive disorder, recurrent, mo derate F33.1 and Anxiety F41.9 IMMUNIZATIONS Vaccine Route Administration Date Status Influenza [...] Education Language: Question Answer Notes Languages spoken: Solomon Islander Adventism: Question Answer Notes Adventism 21 Sabianist Drug and Alcohol Question Answer Notes Total [...] Information RESULTS No Results REASON FOR VISIT No Information MEDICAL (GENERAL) HISTORY Type Description Date Medical [...] Treatment Notes Treatm ent Clinical Notes Apr, Major depressive disorder, recurrent, moderate ( ICD-10 - F33.1) Royce attended scheduled follow up appointment. Royce presents for treatment with history of anxiety and depression. Royce is active and engaged throughout session and receptive towards therapeutic interventions. Discussed presenting symptoms and concerns and efforts made to manage symptoms, continues to demonstrate positive change and treatment efforts. Royce will call to schedule follow up appointment in 3-4 weeks. Royce is aware to call for earlier appointment if needed and to use ER for mental health emergencies. Apr, Anxiety (ICD-10 - F41.9) PLAN OF TREATMENT Medication Medication Name Sig Start Date Stop Date Macrobid 100 MG 1 cap Orally bid for 14 day(s) Apr, Nexium 40MG 1 capsule Orally Once a day for 90 days Treatment Notes Assessment Notes Clinical Notes Major depressive disorder, recurrent, moderate Royce attended scheduled follow up appointment. Royce presents for treatment with history of anxiety and depression. Royce is active and engaged throughout session and receptive towards therapeutic interventions. Discussed presenting symptoms and concerns and efforts made to manage symptoms, continues to demonstrate positive change and treatment efforts. Royce will call to schedule follow up appointment in 3-4 weeks. Royce is aware to call for earlier appointment if needed and to use ER for mental health emergencies. Next Appt Details Provider Name:Azul Samano, 2020-05-19 02:00:00 PM, [address] [facility] [address], [place], [address] Insurance Providers Payer Name Payer Address Payer Phone Insured Name Patient Relati onship to Insured Coverage Start Date Coverage End Date [place] [address] [address] [facility] [id number] [phone] ROYCE BARAJAS self
--- OUTSIDE RECORDS SUMMARY | 2020-06-13 12:23 | CCD ---
Author Author [facility] Organization [facility] Address Unknown Phone Unavailable Care Team Providers Care Machine I Coremaker Name Role Phone Phong Gunter Unavailable PROBLEMS Type Condition ICD9-CM Code [id number] Code Onset Dates Condition S tatus SNOMED Code Notes Problem Diverticulosis of large intestine without hemorrhage K57.30 Active 499141479 Problem Irritable bowel syndrome, unspecified type K58.9 Active 01774257 Problem Vitamin D deficiency E55.9 Active 32285687 Problem Gastroesophageal reflux disease, esophagitis pre sence not specified K21.9 Active 658153443 Problem Mixed hyperlipidemia E78.2 Active 480637906 Problem Hiatal hernia K44.9 Active 27252657 Problem History of non-ST elevation myocardial infarction (NSTEMI) I25.2 Active 415190997 Problem Tobacco use Z72.0 Active 900428784 Problem Impaired fasting glucose R73.01 Active 7455906 07 Problem Atherosclerosis of [place] co ronary artery of [place] heart without angina pectoris I25.10 Active 8450397153639 Stenting of distal LAD and mid RCA 10/2016 Problem Influenza vaccination declined Z28.21 Active 3 90617467 Problem Dyslipidemia E78.5 Active 524986809 Problem JESSICA (obstructive sleep apnea) G47.33 Active 78 212242 Problem Type 2 diabetes mellitus wit hout complication, without long-term current use of insulin E11.9 Active 576217679 Problem Hypothyroidism, unspecified type E03.9 Active 95145353 Problem Penicillin allergy Z88.0 Active 94177296 Problem Adjustment disorder with depressed mood F43.21 Active 38686828 Problem Anxiety F41.9 Active 34495129 Problem Essential hypertension I10 Active 79902374 Problem Acquired hypothyroidism E03.9 Active 61631410 2 Problem Moderate episode of recurrent major depressive disorder F33.1 Active 769162805 Problem Major depressive disorder, recurrent, moderate F33 .1 Active 705792827 Problem Chronic GERD K21.9 Active 727127699 Problem Sinusitis, unspecified chronicity, unspecified location J32.9 Active 00354361 ALLERGIES Allergen (clinical drug ingredient) Drug/Non Drug Allergy do cumented on EMR Reaction Allergy Type Onset Date Status tetracycline Tetracycline HCl([facility] Code:[address]-20) itching Drug Allergy Active penicillin V Penicillin V Potassium([facility] Code:[address]-89) A naphylaxis Drug Allergy Active amoxicillin / clavulanate Augmentin([facility] Code:[address]-52) Diar helena Drug Allergy Active benzonatate Tessalon Perles([facility] Code:[address]-79) itchy Drug A llergy Active Pt states all "cillins" Anaphylaxis Non Drug Allergy Active Penicillin (For Allergies Use Only) anaphylaxis Drug Aller gy Active ENCOUNTERS from 1955 to 2020-04-16 Encounter Location Date Provider Diagnosis [address] [address] Apr, [facility] IMMUNIZATIONS Vaccine Route Administration Date Status Influenza [...] Education Language: Question Answer Notes Languages spoken: Luxembourgish Quaker: Question Answer Notes Quaker 21 Cheondoism Drug and Alcohol Question Answer Notes Total [...] Notes Start Da te End Date Status ProAir HFA 108 (90 Base) MCG/ACT 2 puffs as needed Inh alation every 4 hrs for 10 day(s) Jun, Not-Taking Irbesartan 150 MG 1 tablet Orally Once a day for 90 days Active Aspirin 81 MG 1 tablet Orally Once a day Active Atorvastatin Calcium 40MG 1 tablet Orally Once a day for 90 days Active Nitrofurantoin Monohyd Macro 100 MG TAKE 1 CAPSULE BY MOUTH TWICE DAILY FOR 7 DAYS Oral for 7 Not-Taking Levothyroxine Sodium 75 MCG 1 tablet Orally Once a day for 90 Active Nexium 40MG 1 capsule Orally Once a day for 90 days Active Claritin 10 MG 1 tablet Orally Once a day for 30 day(s) Not-Taking Xanax 0.5 MG 0.5 tablet Orally Twice a day PRN anxiety MDD=2 for 5 da ys Not-Taking Bactrim DS 800-160 MG 1 tablet Orally Twice a day for 5 day(s) Sep, Not-Taking Azithromycin 250 MG 2 tablet on the first day, then 1 tablet daily for 4 days Orally Once a day for 5 day(s) Mar, N ot-Taking Metformin HCl 500 MG 1 tablet with a meal Orally Once a day Active PROCEDURES No Information RESULTS No Results REASON FOR VISIT PA esomeprazole mag DR 40mg cap, QD MEDICAL (GENERAL) HISTORY Type Description Date Medical [...] No Information FUNCTIONAL STATUS No Information ASSESSMENTS No Information PLAN OF TREATMENT No Information Insurance Providers Payer Name Payer Address Payer Phone Insured Name Patient Relati onship to Insured Coverage Start Date Coverage End Date MERT ARREOLA [facility] [address] [facility] [address] [phone] ROYCE BARAJAS self
--- OUTSIDE RECORDS SUMMARY | 2020-06-13 12:23 | CCD ---
Author Author [facility] Organization [facility] Address Unknown Phone Unavailable Care Team Providers Care Motel Front Desk Clerk Name Role Phone Jenny Paula Unavailable PROBLEMS Type Condition ICD9-CM Code [id number] Code Onset Dates Condition S tatus SNOMED Code Notes Problem Diverticulosis of large intestine without hemorrhage K57.30 Active 339119051 Problem Irritable bowel syndrome, unspecified type K58.9 Active 00299011 Problem Vitamin D deficiency E55.9 Active 63947031 Problem Gastroesophageal reflux disease, esophagitis pre sence not specified K21.9 Active 511931294 Problem Mixed hyperlipidemia E78.2 Active 048050437 Problem Hiatal hernia K44.9 Active 80332662 Problem History of non-ST elevation myocardial infarction (NSTEMI) I25.2 Active 740491036 Problem Tobacco use Z72.0 Active 024181003 Problem Impaired fasting glucose R73.01 Active 3833970 07 Problem Atherosclerosis of [place] ronary artery of [place] heart without angina pectoris I25.10 Active 2344297525872 Stenting of distal LAD and mid RCA 10/2016 Problem Influenza vaccination declined Z28.21 Active 3 10327028 Problem Dyslipidemia E78.5 Active 018622276 Problem JESSICA (obstructive sleep apnea) G47.33 Active 78 275809 Problem Type 2 diabetes mellitus wit hout complication, without long-term current use of insulin E11.9 Active 087538265 Problem Hypothyroidism, unspecified type E03.9 Active 77621977 Problem Penicillin allergy Z88.0 Active 20402597 Problem Adjustment disorder with depressed mood F43.21 Active 29901396 Problem Anxiety F41.9 Active 25010898 Problem Essential hypertension I10 Active 31803513 Problem Acquired hypothyroidism E03.9 Active 92290724 2 Problem Moderate episode of recurrent major depressive disorder F33.1 Active 057575071 Problem Major depressive disorder, recurrent, moderate F33 .1 Active 424730761 Problem Chronic GERD K21.9 Active 334805642 Problem Sinusitis, unspecified chronicity, unspecified location J32.9 Active 56787720 ALLERGIES Allergen (clinical drug ingredient) Drug/Non Drug Allergy do cumented on EMR Reaction Allergy Type Onset Date Status tetracycline Tetracycline HCl([facility] Code:[address]-71) itching Drug Allergy Active penicillin V Penicillin V Potassium([facility] Code:[address]-69) A naphylaxis Drug Allergy Active amoxicillin / clavulanate Augmentin([facility] Code:[address]-15) Diar helena Drug Allergy Active benzonatate Tessalon Perles([facility] Code:[address]-72) itchy Drug A llergy Active Pt states all "cillins" Anaphylaxis Non Drug Allergy Active Penicillin (For Allergies Use Only) anaphylaxis Drug Aller gy Active ENCOUNTERS from 1955 to 2020-04-08 Encounter Location Date Provider Diagnosis [facility] [address] [place] [address], Jenny Paula Acute cystitis without hematuria N30.00 and Encounter for immunization Z23 IMMUNIZATIONS Vaccine Route Administration Date Status Influenza [...] Education Language: Question Answer Notes Languages spoken: Sami Samaritan: Question Answer Notes Samaritan 21 Jew Drug and Alcohol Question Answer Notes Total [...] Answer Notes Are you a: former smoker REASON FOR REFERRAL No Information VITAL SIGNS Weight 236.8 lbs Apr, Height 65 in Apr, BMI 39.40 kg/m2 Apr, Heart Rate 77 /min Apr, Respiratory Rate 17 /min Apr, Temperature 98.23 degrees Fahrenheit Apr, Oximetry 96 Apr, Blood pressure systolic 126 mm Hg Apr, Blood pressure diastolic 75 mm Hg Apr, MEDICATIONS Medication SIG (Take, Route, Frequency, Duration) Notes Start Da te End Date Status Claritin 10 MG 1 tablet Orally Once a day for 30 day(s) Not-Taking Atorvastatin Calcium 40MG 1 tablet Orally Once a day for 90 days Active Aspirin 81 MG 1 tablet Orally Once a day Active Xanax 0.5 MG 0.5 tablet Orally Twice a day PRN anxiety MDD=2 for 5 da ys Not-Taking Irbesartan 150 MG 1 tablet Orally Once a day for 90 days Active Levothyroxine Sodium 75 MCG 1 tablet Orally Once a day for 90 Active ProAir HFA 108 (90 Base) MCG/ACT 2 puffs as needed Inh alation every 4 hrs for 10 day(s) Jun, Not-Taking Azithromycin 250 MG 2 tablet on the first day, then 1 tablet daily for 4 days Orally Once a day for 5 day(s) Mar, N ot-Taking Nexium 40MG 1 capsule Orally Once a day for 90 days Active Nitrofurantoin Monohyd Macro 100 MG TAKE 1 CAPSULE BY MOUTH TWICE DAILY FOR 7 DAYS Oral for 7 Active Bactrim DS 800-160 MG 1 tablet Orally Twice a day for 5 day(s) Sep, Not-Taking Metformin HCl 500 MG 1 tablet with a meal Orally Once a day Active PROCEDURES No Information RESULTS No Results REASON FOR VISIT Urgent Care follow up; UTI MEDICAL (GENERAL) HISTORY Type Description Date Medical [...] x 2 Surgical History stent placement 10/2016 Hospitalization History childbirth Hospitalization History see surgeries Hospitalization History 10/2016 Goals Section No Information Health Concerns No Information MEDICAL EQUIPMENT No Information MENTAL STATUS No Information FUNCTIONAL STATUS No Information ASSESSMENTS Encounter Date Diagnosis Assessment Notes Treatment Notes Treatm ent Clinical Notes Apr, Acute cystitis without hematuria (ICD-10 - N30.0 0) Continue current tx, will review urine cx when available. Reviewed cx from 10/2019, which showed e. coli, susceptible to Macrobid. Referral to urology for further evaluation, likely diagnoses OAB, r/o alternative findings for sxs. Apr, Encounter for immunization (ICD-10 - Z23) Patient Educated with: FLU Vaccine, Inactivated [id number] (FLU Vaccine, Inactivated [id number]) PLAN OF TREATMENT Treatment Notes Assessment Notes Clinical Notes Acute cystitis without hematuria Continu e current tx, will review urine cx when available. Reviewed cx from 10/2019, which showed e. coli, susceptible to Macrobid. Referral to urology for further evaluation, likely diagnoses OAB, r/o alternative findings for sxs. Encounter for immunization Patient Educated with: FLU Vaccine, Inactivated [id number] (FLU Vaccine, Inactivated [id number]) Treatment Notes Test Name Order Date Immunization: Flublok Quadrivalent (18 years & older) 0.5mL IM (Influenza) 2020-04-08 Next Appt Details prn, sxs non-resolving in 3-5 days Reaso n: Provider Name:Susanne Rahman, 2020-04-01 5 10:45:00 AM, [address], [place], [address], Provider Name:Azul Samano, 2020-04-15 01:00:00 PM, [address], [place], [address] Insurance Providers Payer Name Payer Address Payer Phone Insured Name Patient Relati onship to Insured Coverage Start Date Coverage End Date BS [place] [employer] [address] [place] [address] [phone] ROYCE BARAJAS self
--- OUTSIDE RECORDS SUMMARY | 2020-06-13 12:23 | CCD ---
Author Author [facility] Organization [facility] Address Unknown Phone Unavailable Care Team Providers Care Magnetic Doctor Name Role Phone Azul Samano Unavailable PROBLEMS Type Condition ICD9-CM Code [id number] Code Onset Dates Condition S tatus SNOMED Code Notes Problem Diverticulosis of large intestine without hemorrhage K57.30 Active 340824211 Problem Irritable bowel syndrome, unspecified type K58.9 Active 63544390 Problem Vitamin D deficiency E55.9 Active 23454553 Problem Gastroesophageal reflux disease, esophagitis pre sence not specified K21.9 Active 521918527 Problem Mixed hyperlipidemia E78.2 Active 484390327 Problem Hiatal hernia K44.9 Active 03450877 Problem History of non-ST elevation myocardial infarction (NSTEMI) I25.2 Active 546653064 Problem Tobacco use Z72.0 Active 923705147 Problem Impaired fasting glucose R73.01 Active 0545905 07 Problem Atherosclerosis of [place] ronary artery of [place] heart without angina pectoris I25.10 Active 1859830398650 Stenting of distal LAD and mid RCA 10/2016 Problem Influenza vaccination declined Z28.21 Active 3 43774297 Problem Dyslipidemia E78.5 Active 438939105 Problem JESSICA (obstructive sleep apnea) G47.33 Active 78 005169 Problem Type 2 diabetes mellitus wit hout complication, without long-term current use of insulin E11.9 Active 877958381 Problem Hypothyroidism, unspecified type E03.9 Active 15796319 Problem Penicillin allergy Z88.0 Active 22021359 Problem Adjustment disorder with depressed mood F43.21 Active 91665773 Problem Anxiety F41.9 Active 21546454 Problem Essential hypertension I10 Active 10254836 Problem Acquired hypothyroidism E03.9 Active 42943392 2 Problem Moderate episode of recurrent major depressive disorder F33.1 Active 252706264 Problem Major depressive disorder, recurrent, moderate F33 .1 Active 044623667 Problem Chronic GERD K21.9 Active 524420745 Problem Sinusitis, unspecified chronicity, unspecified location J32.9 Active 15983341 ALLERGIES Allergen (clinical drug ingredient) Drug/Non Drug Allergy do cumented on EMR Reaction Allergy Type Onset Date Status tetracycline Tetracycline HCl([facility] Code:[address]-83) itching Drug Allergy Active penicillin V Penicillin V Potassium([facility] Code:[address]-55) A naphylaxis Drug Allergy Active amoxicillin / clavulanate Augmentin([facility] Code:[address]-84) Diar helena Drug Allergy Active benzonatate Tessalon Perles([facility] Code:[address]-70) itchy Drug A llergy Active Pt states all "cillins" Anaphylaxis Non Drug Allergy Active Penicillin (For Allergies Use Only) anaphylaxis Drug Aller gy Active ENCOUNTERS from 1955 to 2020-04-03 Encounter Location Date Provider Diagnosis [facility] [address] [address] Apr, Azul Samano Major depressive disorder, r ecurrent, moderate F33.1 and Anxiety F41.9 IMMUNIZATIONS Vaccine Route [...] Education Language: Question Answer Notes Languages spoken: Hungarian Congregational: Question Answer Notes Congregational 21 Mandaeism Drug and Alcohol Question Answer Notes Total [...] concerns and efforts made to manage symptoms, demonstrates positive change and treatment efforts. Royce is scheduled for follow up appointment 04/15/2020 at 1PM. Royce is aware to call for earlier appointment if needed and to use ER for mental health emergencies. Apr, Anxiety (ICD-10 - F41.9) PLAN OF TREATMENT Treatment Notes Assessment Notes Clinical Notes Major depressive disorder, recurrent, moderate Royce attended scheduled follow up appointment. Royce presents for treatment with history of anxiety and depression. Royce is active and engaged throughout session and receptive towards therapeutic interventions. Discussed presenting symptoms and concerns and efforts made to manage symptoms, demonstrates positive change and treatment efforts. Royce is scheduled for follow up appointment 04/15/2020 at 1PM. Royce is aware to call for earlier appointment if needed and to use ER for mental health emergencies. Next Appt Details Provider Name:Azul Samano, 2020-04-15 01:00:00 PM, [address] [facility], [place] [address], [place], [address] Insurance Providers Payer Name Payer Address Payer Phone Insured Name Patient Relati onship to Insured Coverage Start Date Coverage End Date MERT ARREOLA [address] [facility] [address] ROYCE BARAJAS self
--- OUTSIDE RECORDS SUMMARY | 2020-06-13 12:23 | CCD | Continuity of Care Document ---
Author Organization Unknown Address Unknown Phone Unavailable Care Team Providers Care Harness Preparer Name Role Phone Chet Cedillo AUTM [phone] Dread Love MD AUTM [phone] Hayley Hill AUTM [phone] Santosh Martinez MD AUTM [phone] Phong Gunter DO AUTM [phone] Problems Active Problems Provider Date Patient post [...] Amoxicillin rash/itchy 12/15/2016 Penicillin throat swells 12/15/2016 Aprylyusuf Bauman "itchy all over" 11/20/19 20 Medications [...] Date Facility Test Result H/L Range Note BMP 11/21/2019 [facility] - not interfaced (315)- - Calcium Ser/Plasma Mass/Vol 9.3 Sodium 137 Carbon Dioxide Ser/Plasm 31 Chloride Serum/Plasma 105 Potassium 4.9 Glucose 95 70-100 Blood Urea Nitrogen 11 7-18 Creatinine 0.86 0.55-1.30 G F R >60.0 Hemoglobin A1c 11/21/2019 [facility] - not interfaced (315)- - Hemoglobin A1c 6.0 Procedures Date Code Description Status 11/21/2019 95141 ECG 12-Lead Completed Medical Devices Description No Information Available Encounters Type Date Location Provider Dx Diagnosis Office Visit 11/21/2019 1:00p Main Office GAB Keenan I25.1 0 Athscl heart disease of [place] coronary artery w/o ang pctrs I10 Essential (primary) hyperten enrique E78.2 Mixed hyperlipidemia G47.33 Obstructive sleep apnea ([place]) (pediatric) E66.09 Other obesity due to excess calories Z71.3 Dietary counseling and surve illance Assessments Date Code Description Provider 11/21/2019 I25.10 Atherosclerotic heart disease of [place] coronary artery with GAB Keenan 11/21/2019 I10 [...] GAB Keenan* I25.10 Atherosclerotic heart disease of [place] coronary artery with* Recommendations:* Please talk with [...]
--- OUTSIDE RECORDS SUMMARY | 2020-06-13 12:23 | CCD ---
Author Author [facility] Organization [facility] Address Unknown Phone Unavailable Care Team Providers Care Raw Cheese Worker Name Role Phone Susanne Rahman Unavailable PROBLEMS Type Condition ICD9-CM Code BEP61-HB Code Onset Dates Condition S tatus SNOMED Code Notes Problem Diverticulosis of large intestine without hemorrhage K57.30 Active 466923517 Problem Irritable bowel syndrome, unspecified type K58.9 Active 65777264 Problem Vitamin D deficiency E55.9 Active 31625963 Problem Gastroesophageal reflux disease, esophagitis pre sence not specified K21.9 Active 164330579 Problem Mixed hyperlipidemia E78.2 Active 914497249 Problem Hiatal hernia K44.9 Active 18934444 Problem History of non-ST elevation myocardial infarction (NSTEMI) I25.2 Active 796561378 Problem Tobacco use Z72.0 Active 548647306 Problem Impaired fasting glucose R73.01 Active 5018748 07 Problem Atherosclerosis of [place] co ronary artery of [place] heart without angina pectoris I25.10 Active 3070742195580 Stenting of distal LAD and mid RCA 10/2016 Problem Influenza vaccination declined Z28.21 Active 3 40283072 Problem Dyslipidemia E78.5 Active 275149462 Problem JESSICA (obstructive sleep apnea) G47.33 Active 78 237749 Problem Type 2 diabetes mellitus wit hout complication, without long-term current use of insulin E11.9 Active 741005435 Problem Hypothyroidism, unspecified type E03.9 Active 68273895 Problem Penicillin allergy Z88.0 Active 87758764 Problem Adjustment disorder with depressed mood F43.21 Active 98732023 Problem Anxiety F41.9 Active 56491347 Problem Essential hypertension I10 Active 60423933 Problem Acquired hypothyroidism E03.9 Active 57332613 2 Problem Moderate episode of recurrent major depressive disorder F33.1 Active 473143020 Problem Major depressive disorder, recurrent, moderate F33 .1 Active 126842409 Problem Chronic GERD K21.9 Active 696979494 Problem Sinusitis, unspecified chronicity, unspecified location J32.9 Active 60965844 ALLERGIES Allergen (clinical drug ingredient) Drug/Non Drug Allergy do cumented on EMR Reaction Allergy Type Onset Date Status tetracycline Tetracycline HCl([facility]NOTE 2] Code:[address]-32) itching Drug Allergy Active penicillin V Penicillin V Potassium([facility][NOTE 2] Code:[address]-31) A naphylaxis Drug Allergy Active amoxicillin / clavulanate Augmentin([facility][NOTE 2] Code:[address]-42) Diar helena Drug Allergy Active benzonatate Tessalon Perles([facility][NOTE 2] Code:[address]-96) itchy Drug A llergy Active Pt states all "cillins" Anaphylaxis Non Drug Allergy Active Penicillin (For Allergies Use Only) anaphylaxis Drug Aller gy Active ENCOUNTERS from 1955 to 2020-04-17 Encounter Location Date Provider Diagnosis [facility] [address] [place] [address] Apr Susanne Rahman IMMUNIZATIONS Vaccine Route Administration Date Status Influenza [...] Education Language: Question Answer Notes Languages spoken: Nepali Jehovah'S Witness: Question Answer Notes Jehovah'S Witness 21 Islam Drug and Alcohol Question Answer Notes Total [...] Information RESULTS No Results REASON FOR VISIT UTI MEDICAL (GENERAL) HISTORY Type Description Date [...] Information ASSESSMENTS No Information PLAN OF TREATMENT Medication Medication Name Sig Start Date Stop Date Macrobid 100 MG 1 cap Orally bid for 14 day(s) Apr, Nexium 40MG 1 capsule Orally Once a day for 90 days Insurance Providers Payer Name Payer Address Payer Phone Insured Name Patient Relati onship to Insured Coverage Start Date Coverage End Date MERT ARREOLA [facility] [address] [place] [address] [phone] ROYCE BARAJAS self
--- OUTSIDE RECORDS SUMMARY | 2020-06-13 12:23 | CCD ---
Author Author [facility] Organization [facility] Address Unknown Phone Unavailable Care Team Providers Care Respiratory Physician Name Role Phone Azul Samano Unavailable PROBLEMS Type Condition ICD9-CM Code [id number] Code Onset Dates Condition S tatus SNOMED Code Notes Problem Diverticulosis of large intestine without hemorrhage K57.30 Active 671575027 Problem Irritable bowel syndrome, unspecified type K58.9 Active 98270855 Problem Vitamin D deficiency E55.9 Active 56128860 Problem Gastroesophageal reflux disease, esophagitis pre sence not specified K21.9 Active 893340665 Problem Mixed hyperlipidemia E78.2 Active 969512795 Problem Hiatal hernia K44.9 Active 12615047 Problem History of non-ST elevation myocardial infarction (NSTEMI) I25.2 Active 064162100 Problem Tobacco use Z72.0 Active 990832029 Problem Impaired fasting glucose R73.01 Active 6500505 07 Problem Atherosclerosis of [place] co ronary artery of [place] heart without angina pectoris I25.10 Active 2032092481674 Stenting of distal LAD and mid 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/2016 Problem Influenza vaccination declined Z28.21 Active 3 35162937 Problem Dyslipidemia E78.5 Active 023415156 Problem JESSICA (obstructive sleep apnea) G47.33 Active 78 764080 Problem Type 2 diabetes mellitus wit hout complication, without long-term current use of insulin E11.9 Active 849968576 Problem Hypothyroidism, unspecified type E03.9 Active 59698498 Problem Penicillin allergy Z88.0 Active 17992906 Problem Adjustment disorder with depressed mood F43.21 Active 28300024 Problem Anxiety F41.9 Active 51540204 Problem Essential hypertension I10 Active 48317051 Problem Acquired hypothyroidism E03.9 Active 01610365 2 Problem Moderate episode of recurrent major depressive disorder F33.1 Active 412839150 Problem Major depressive disorder, recurrent, moderate F33 .1 Active 016487426 Problem Chronic GERD K21.9 Active 783242270 Problem Sinusitis, unspecified chronicity, unspecified location J32.9 Active 84846901 ALLERGIES Allergen (clinical drug ingredient) Drug/Non Drug Allergy do cumented on EMR Reaction Allergy Type Onset Date Status tetracycline Tetracycline HCl([facility] Code:[address]-22) itching Drug Allergy Active penicillin V Penicillin V Potassium([facility] Code:[address]-37) A naphylaxis Drug Allergy Active amoxicillin / clavulanate Augmentin([facility] Code:[address]-31) Diar helena Drug Allergy Active benzonatate Tessalon Perles([facility] Code:[address]-94) itchy Drug A llergy Active Pt states all "cillins" Anaphylaxis Non Drug Allergy Active Penicillin (For Allergies Use Only) anaphylaxis Drug Aller gy Active ENCOUNTERS from 1955 to 2020-03-19 Encounter Location Date Provider Diagnosis [facility] [address] [address] 17 Mar, 2020 Azul Samano Major depressive disorder, r ecurrent, [...] Education Language: Question Answer Notes Languages spoken: Bulgarian Yazdanism: Question Answer Notes Yazdanism 21 Anabaptist Drug and Alcohol Question Answer Notes Total [...] Notes Start Da te End Date Status Irbesartan 150 MG 1 tablet Orally Once a day for 90 days Active Levothyroxine Sodium 75 MCG 1 tablet Orally Once a day for 90 Active Claritin 10 MG 1 tablet Orally Once a day for 30 day(s) Active Aspirin 81 MG 1 tablet Orally Once a day Active Atorvastatin Calcium 40MG 1 tablet Orally Once a day for 90 days Active ProAir HFA 108 (90 Base) MCG/ACT 2 puffs as needed Inh alation every 4 hrs for 10 day(s) Jun, Not-Taking Nexium 40MG 1 capsule Orally Once a day for 90 days Active Azithromycin 250 MG 2 tablet on the first day, then 1 tablet daily for 4 days Orally Once a day for 5 day(s) Mar, A ctive Metformin HCl 500 MG 1 tablet with a meal Orally Once a day Active Xanax 0.5 MG 0.5 tablet Orally Twice a day PRN anxiety MDD=2 for 5 da ys Not-Taking Bactrim DS 800-160 MG 1 tablet Orally Twice a day for 5 day(s) Sep, Not-Taking PROCEDURES No Information RESULTS No Results [...] Notes Treatment Notes Treatm ent Clinical Notes Mar, Major depressive disorder, recurrent, moderate ( ICD-10 - F33.1) Royce attended scheduled follow up appointment. 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 Royce is active and engaged throughout session and receptive towards therapeutic interventions. Discussed behavioral action. Royce is scheduled for follow up appointment 03/25/2020 at 2PM. Royce is aware to call for earlier appointment if needed and to use ER for mental health emergencies. Mar, Anxiety (ICD-10 - F41.9) PLAN OF TREATMENT Medication Medication Name Sig Start Date Stop Date Levothyroxine Sodium 75 MCG 1 tablet Orally Once a day for 90 Azithromycin 250 MG 2 tablet on the first day, then 1 tablet daily for 4 days Orally Once a day for 5 day(s) Mar, Treatment Notes Assessment Notes Clinical Notes Major depressive disorder, recurrent, moderate Royce attended scheduled follow up appointment. 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 Royce is active and engaged throughout session and receptive towards therapeutic interventions. Discussed behavioral action. Royce is scheduled for follow up appointment 03/25/2020 at 2PM. Royce is aware to call for earlier appointment if needed and to use ER for mental health emergencies. Next Appt Details Provider Name:Azul Hart, 2020-03-25 02:00:00 PM, [address] [facility], [place], [address] Provider Name:Azul Selwyn 2020-04-01 01:00:00 PM, [address], [place], [address] Insurance Providers Payer Name Payer Address Payer Phone Insured Name Patient Relati onship to Insured Coverage Start Date Coverage End Date MERT ARREOLA [address] [facility] [address] ROYCE BARAJAS self
--- OUTSIDE RECORDS SUMMARY | 2020-06-13 12:23 | CCD ---
Author Author [facility] Organization [facility] Address Unknown Phone Unavailable Care Team Providers Care Guest Service Aide Name Role Phone Jenny Paula Unavailable PROBLEMS Type Condition ICD9-CM Code [id number] Code Onset Dates Condition S tatus SNOMED Code Notes Problem Diverticulosis of large intestine without hemorrhage K57.30 Active 082321357 Problem Irritable bowel syndrome, unspecified type K58.9 Active 28142541 Problem Vitamin D deficiency E55.9 Active 36493220 Problem Gastroesophageal reflux disease, esophagitis pre sence not specified K21.9 Active 721033000 Problem Mixed hyperlipidemia E78.2 Active 407927440 Problem Hiatal hernia K44.9 Active 61164153 Problem History of non-ST elevation myocardial infarction (NSTEMI) I25.2 Active 601027031 Problem Tobacco use Z72.0 Active 724117793 Problem Impaired fasting glucose R73.01 Active 1338898 07 Problem Atherosclerosis of [place] co ronary artery of [place] heart without angina pectoris I25.10 Active 8482360914264 Stenting of distal LAD and mid RCA 10/2016 Problem Influenza vaccination declined Z28.21 Active 3 94359263 Problem Dyslipidemia E78.5 Active 429926977 Problem JESSICA (obstructive sleep apnea) G47.33 Active 78 666126 Problem Type 2 diabetes mellitus wit hout complication, without long-term current use of insulin E11.9 Active 467400928 Problem Hypothyroidism, unspecified type E03.9 Active 27008897 Problem Penicillin allergy Z88.0 Active 34557292 Problem Adjustment disorder with depressed mood F43.21 Active 11150806 Problem Anxiety F41.9 Active 70884534 Problem Essential hypertension I10 Active 47530073 Problem Acquired hypothyroidism E03.9 Active 10392061 2 Problem Moderate episode of recurrent major depressive disorder F33.1 Active 797729210 Problem Major depressive disorder, recurrent, moderate F33 .1 Active 754570541 Problem Chronic GERD K21.9 Active 667110967 Problem Sinusitis, unspecified chronicity, unspecified location J32.9 Active 20815766 ALLERGIES Allergen (clinical drug ingredient) Drug/Non Drug Allergy do cumented on EMR Reaction Allergy Type Onset Date Status tetracycline Tetracycline HCl([facility] Code:[address]-36) itching Drug Allergy Active penicillin V Penicillin V Potassium([facility] Code:[address]-57) A naphylaxis Drug Allergy Active amoxicillin / clavulanate Augmentin([facility] Code:[address]-34) Diar helena Drug Allergy Active benzonatate Tessalon Perles([facility] Code:[address]-26) itchy Drug A llergy Active Pt states all "cillins" Anaphylaxis Non Drug Allergy Active Penicillin (For Allergies Use Only) anaphylaxis Drug Aller gy Active ENCOUNTERS from 1955 to 2020-03-17 Encounter Location Date Provider Diagnosis [facility] [address] [place] [address] Mar, Jenny Paula Acute non-recurrent frontal sinusitis J0 1.10 ; Type 2 diabetes mellitus without complication, without long-term current use of insulin E11.9 and Adjustment disorder with depressed mood F43.21 IMMUNIZATIONS Vaccine Route Administration Date Status Influenza [...] Education Language: Question Answer Notes Languages spoken: Hebrew Christianity: Question Answer Notes Christianity 21 Mosque Drug and Alcohol Question Answer Notes Total [...] FOR REFERRAL No Information VITAL SIGNS Weight 240.4 lbs Mar, Height 65 in Mar, BMI 40.00 kg/m2 Mar, Heart Rate 79 /min Mar, Respiratory Rate 17 /min Mar, Temperature 97.2 degrees Fahrenheit Mar, Oximetry 97 Mar, Blood pressure systolic 140 mm Hg Mar, Blood pressure diastolic 74 mm Hg Mar, MEDICATIONS Medication SIG (Take, Route, Frequency, Duration) [...] Information RESULTS No Results REASON FOR VISIT sinus infection MEDICAL (GENERAL) HISTORY Type Description Date Medical [...] Treatment Notes Treatm ent Clinical Notes Mar, Acute non-recurrent frontal sinusitis (ICD-10 - J01.10) Plan azithromycin at this time, more for anti-inflammatory property. Continue anti-histamine and flonase for supportive benefit. RTC for further evaluation, if non-resolving, in 7-10 days. 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 Continue anti-histamine and flonase for supportive benefit. RTC for further evaluation, if non-resolving, in 7-10 days. 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, follow up w/ PCP in near future for further discussion Future Test Test Name Order Date HEMOGLOBIN A1c 20200303 Next Appt Details [employer], 1 week PCP (sinusitis non-resolvin g) Reason: Provider Name:Azul Samano 2020-03-18 02:00:00 PM, [address] [address], [place], [address] Provider Name:Azul Samano, 2020-03-25 02:00:00 PM, [address], [facility] [address], [place], [address] Insurance Providers Payer Name Payer Address Payer Phone Insured Name Patient Relati onship to Insured Coverage Start Date Coverage End Date MERT ARREOLA [address] [facility] [address] ROYCE BARAJAS self
--- OUTSIDE RECORDS SUMMARY | 2020-06-13 12:23 | CCD ---
Author Author [facility] Organization [facility] Address Unknown Phone Unavailable Care Team Providers Care Help Desk Assistant Name Role Phone Susanne Rahman Unavailable PROBLEMS Type Condition ICD9-CM Code [id number] Code Onset Dates Condition S tatus SNOMED Code Notes Problem Diverticulosis of large intestine without hemorrhage K57.30 Active 117270607 Problem Irritable bowel syndrome, unspecified type K58.9 Active 96101435 Problem Vitamin D deficiency E55.9 Active 78242057 Problem Gastroesophageal reflux disease, esophagitis pre sence not specified K21.9 Active 893798856 Problem Mixed hyperlipidemia E78.2 Active 874576661 Problem Hiatal hernia K44.9 Active 75073245 Problem History of non-ST elevation myocardial infarction (NSTEMI) I25.2 Active 000013713 Problem Tobacco use Z72.0 Active 070876646 Problem Impaired fasting glucose R73.01 Active 1847356 07 Problem Atherosclerosis of [place] co ronary artery of [place] heart without angina pectoris I25.10 Active 0434355396158 Stenting of distal LAD and mid RCA 10/2016 Problem Influenza vaccination declined Z28.21 Active 3 32999478 Problem Dyslipidemia E78.5 Active 542291075 Problem JESSICA (obstructive sleep apnea) G47.33 Active 78 316687 Problem Type 2 diabetes mellitus wit hout complication, without long-term current use of insulin E11.9 Active 860902152 Problem Hypothyroidism, unspecified type E03.9 Active 94289252 Problem Penicillin allergy Z88.0 Active 06510502 Problem Adjustment disorder with depressed mood F43.21 Active 03272990 Problem Anxiety F41.9 Active 38888208 Problem Essential hypertension I10 Active 98930676 Problem Acquired hypothyroidism E03.9 Active 10010092 2 Problem Moderate episode of recurrent major depressive disorder F33.1 Active 073464908 Problem Major depressive disorder, recurrent, moderate F33 .1 Active 365327218 Problem Chronic GERD K21.9 Active 133973708 Problem Sinusitis, unspecified chronicity, unspecified location J32.9 Active 01556376 ALLERGIES Allergen (clinical drug ingredient) Drug/Non Drug Allergy do cumented on EMR Reaction Allergy Type Onset Date Status tetracycline Tetracycline HCl([facility] Code:[address]-77) itching Drug Allergy Active penicillin V Penicillin V Potassium([facility] Code:[address]-34) A naphylaxis Drug Allergy Active amoxicillin / clavulanate Augmentin([facility] Code:[address]-48) Diar helena Drug Allergy Active benzonatate Tessalon Perles([facility] Code:[address]-56) itchy Drug A llergy Active Pt states all "cillins" Anaphylaxis Non Drug Allergy Active Penicillin (For Allergies Use Only) anaphylaxis Drug Aller gy Active ENCOUNTERS from 1955 to 2020-04-18 Encounter Location Date Provider Diagnosis [facility] [address] [place] [address] 15 Apr Susanne Recore Urinary tract infection, site not specif ied N39.0 ; Nocturia R35.1 and Urinary frequency R35.0 IMMUNIZATIONS Vaccine Route Administration Date Status Influenza [...] Education Language: Question Answer Notes Languages spoken: Maltese Jew: Question Answer Notes Jew 21 Hoahaoism Drug and Alcohol Question Answer Notes Total [...] FOR REFERRAL No Information VITAL SIGNS Weight 238.8 lbs Apr, Height 65 in Apr, BMI 39.73 kg/m2 Apr, Heart Rate 72 /min Apr, Respiratory Rate 18 /min Apr, Temperature 98.1 degrees Fahrenheit Apr, Oximetry 97 Apr, Blood pressure systolic 124 mm Hg Apr, Blood pressure diastolic 74 mm Hg Apr, MEDICATIONS Medication SIG (Take, [...] 7 DAYS Oral for 7 Not-Taking PROCEDURES from 1955 to 2020-04-18 Procedure Date Ordered Result Body Site uro PVR (Post Voiding Residual) Bladder Scan 2020-04-15 N/A RESULTS Component Value Reference Range UA URINALYSIS Reviewed date:04/15/2020 14:39:50 Interpretation: Performing Lab:[facility] [address] [facility] [address] , ,[facility] URINE CULTURE Reviewed date:04/17/2020 08:25:59 Interpretation: Performing Lab:[facility] [address] [facility] [address] , ,[facility] REASON FOR VISIT 64yo female w/ recurring UTI (5-6 in past year), on culture e. coli, treated eff ectively w/ Nitrofurantoin, Pt always w/ polyuria and suprapubic cramping, rarel y dysuria, no hematuria; question OAB, r/o alternative findings MEDICAL (GENERAL) HISTORY Type Description Date Medical [...] Treatment Notes Treatm ent Clinical Notes Apr, Urinary tract infection, site not specified (ICD -10 - N39.0) Apr, Nocturia (ICD-10 - R35.1) Apr, Urinary frequency (ICD-10 - R35.0) PLAN OF TREATMENT Medication Medication Name Sig Start Date Stop Date Macrobid 100 MG 1 cap Orally bid for 14 day(s) Apr, Nexium 40MG 1 capsule Orally Once a day for 90 days Next Appt Details we will call with results Reason: Provider Name:Azul Samano, 2020-05-19 02:00:00 PM, [address] [facility], [facility], [address], [place], [address] Insurance Providers Payer Name Payer Address Payer Phone Insured Name Patient Relati onship to Insured Coverage Start Date Coverage End Date MERT ARREOLA [facility] [address] [place] [address] ROYCE BARAJAS self
--- OUTSIDE RECORDS SUMMARY | 2020-06-13 12:24 | CCD ---
Author Author [facility] Organization [facility] Address Unknown Phone Unavailable Care Team Providers Care Strap Buckler Machine Name Role Phone Eloy Cristina Unavailable Unavailable Eloy Cristina Unavailable Unavailable Eloy Cristina Unavailable Unavailable Eloy Cristina Unavailable Unavailable Eloy Cristina Unavailable Unavailable Eloy Cristina Unavailable Unavailable Eloy Cristina Unavailable Unavailable Eloy Cristina Unavailable Unavailable Jonnie, L Radha PA Unavailable Unavailable Jonnie, L Radha PA Unavailable Unavailable Jonnie, L Radha PA Unavailable Unavailable Jonnie, L Radha PA Unavailable Unavailable Jonnie, L Radha PA Unavailable Unavailable Jonnie, L Radha PA Unavailable Unavailable Jonnie, L Radha PA Unavailable Unavailable Jonnie, L Radha PA Unavailable Unavailable Jonnie, L Radha PA Unavailable Unavailable Jonnie, L Radha PA Unavailable Unavailable Jonnie, L Radha PA Unavailable Unavailable Jonnie, L Radha PA Unavailable Unavailable Jonnie, L Radha PA Unavailable Unavailable Jonnie, L Radha PA Unavailable Unavailable Jonnie, L Radha PA Unavailable Unavailable JAKOB, L BACILIO PA Unavailable Unavailable JAKOB, L BACILIO PA Unavailable Unavailable JAKOB, L BACILIO PA Unavailable Unavailable JAKOB, L BACILIO PA Unavailable Unavailable JAKOB, L BACILIO PA Unavailable Unavailable JAKOB, L BACILIO PA Unavailable Unavailable JAKOB, L BACILIO PA Unavailable Unavailable JAKOB, L BACILIO PA Unavailable Unavailable JAKOB, L BACILIO PA Unavailable Unavailable JAKOB, L BACILIO PA Unavailable Unavailable JAKOB, L BACILIO PA Unavailable Unavailable JAKOB, L BACILIO PA Unavailable Unavailable Re-disclosure Warning The records that you are about to access may contain information from federally-assisted alcohol or drug abuse programs. If such information is present, then the following federally mandated warning applies: This information has been disclosed to you from records protected by federal confidentiality rules (42 CFR part 2). The federal rules prohibit you from making any further disclosure of this information unless further disclosure is expressly permitted by the written consent of the person to whom it pertains or as otherwise permitted by 42 CFR part 2. A general authorization for the release of medical or other information is NOT sufficient for this purpose. The Federal rules restrict any use of the information to criminally investigate or prosecute any alcohol or drug abuse patient.The records that you are about to access may contain highly sensitive health information, the redisclosure of which is protected by Article 27-F of the [facility] Public Health law. If you continue you may have access to information: Regarding HIV / AIDS; Provided by facilities licensed or operated by the [facility] Office of Mental Health; or Provided by the [facility] Office for People With Developmental Disabilities. If such information is present, then the following [facility] mandated warning applies: This information has been disclosed to you from confidential records which are protected by state law. State law prohibits you from making any further disclosure of this information without the specific written consent of the person to whom it pertains, or as otherwise permitted by law. Any unauthorized further disclosure in violation of state law may result in a fine or group home sentence or both. A general authorization for the release of medical or other information is NOT sufficient authorization for further disc losure. Allergies and Adverse Reactions Type Description Substance Reaction Status Data Source(s ) Drug allergy Tessalon Perles benzonatate itchy Active eCW1 ( [facility]) Drug allergy Augmentin amoxicillin / clavulanate Diarrhea Active eCW1 ([facility]) Drug allergy Penicillin V Potassium Penicillin V Anaphylaxis Active eCW1 ([facility]) tetracycline Tetracycline HCl Tetracycline itching Active eCW1 ([facility]) Pt states all "cillins" Pt states all "cillins" Pt states all "c illins" Anaphylaxis Active eCW1 ([facility]) Pt states all "cillins" Pt states all "cillins" Pt states all "c illins" Anaphylaxis Active eCW1 ([facility]) Pt states all "cillins" Pt states all "cillins" Pt states all "c illins" Anaphylaxis Active eCW1 ([facility]) Pt states all "cillins" Pt states all "cillins" Pt states all "c illins" Anaphylaxis Active eCW1 ([facility]) Family History Family Member Name Family Member Gender Family Member Status Date o f Status Description Data Source(s) Unknown Male Problem MEDENT ([facility]) at age 61 Unknown Unknown Problem MEDENT ([facility], ) Unknown Unknown Problem MEDENT ([facility], ) Unknown Unknown Problem MEDENT ([facility], ) Unknown Unknown Problem MEDENT ([facility], ) mother age 26 still living Encounters Encounter Providers Location Date Indications Data Source(s ) Office Visit Attender: BACILIO DE GUZMAN Main Office 09:15:00 AM EST MEDENT ([facility]) [place] [address] [facility] [address] 04/17/2020 12:00:00 AM EST eCW1 ([facility]) [place] [address] [facility] [address] 04/17/2020 12:00:00 AM EST eCW1 ([facility]) ([facility]) Behave Health Scheduled Visit [address] [place] [address] 04/16/2020 12:00:00 AM EST eCW1 ([facility]) Outpatient [address] [facility] [place] [address] 04/15/2020 12:00:00 AM EST eCW1 ([facility]) Unknown [address] [facility] [place] [address] 04/15/2020 12:00:00 AM EST eCW1 ([facility]) Outpatient [address] [facility] [place] [address] 04/01/2020 12:00:00 AM EST eCW1 ([facility]) ([facility]) [facility] Health Scheduled Visit [address] [place] [address] 04/01/2020 12:00:00 AM EST eCW1 ([facility]) ([facility]) [facility] Health Scheduled Visit [address] [place] [address] 03/18/2020 12:00:00 AM EST eCW1 ([facility]) Outpatient [address] [facility] [place] [address] 03/12/2020 12:00:00 AM EST eCW1 [facility] Outpatient [address] [facility] [place] [address] 03/03/2020 12:00:00 AM EST eCW1 ([facility]) [facility] [address] [place] [address] 02/01/2020 12:00:00 AM EDT eCW1 ([facility]) Unknown [address] [facility] [place] [address] 01/22/2020 12:00:00 AM EDT eCW1 ([facility]) SFARETHA Hernandez [address] [facility] [address] 11/27/2019 12:00:00 AM EDT eCW1 ([facility]) Outpatient Attender: Radha DE GUZMAN Main Office 11/21/2019 01:00:0 0 PM EDT MEDENT ([facility]) [place] [address] [facility] [address] 10/02/2019 12:00:00 AM EDT eCW1 ([facility]) [facility] [address] [facility] [address] 09/20/2019 12:00:00 AM EDT eCW1 ([facility] [place]) [facility] [address] [place] [address] 09/01/2019 12:00:00 AM EDT eCW1 ([facility]) [facility] [address] [facility] [address] 08/20/2019 12:00:00 AM EDT eCW1 ([facility]) [facility] [address] [facility] [address] 08/17/2019 12:00:00 AM EDT eCW1 ([facility]) [facility] [address] [facility] [address] 08/16/2019 12:00:00 AM EDT eCW1 ([facility]) [facility] [address] [facility] [address] 08/16/2019 12:00:00 AM EDT eCW1 ([facility]) Outpatient 2019 06:07:00 AM EDT [facility] [address] [facility] [address] 08/02/2019 12:00:00 AM EDT eCW1 ([facility]) [facility] [address] [address] 07/20/2019 12:00:00 AM EDT eCW1 ([facility]) [facility] [address] [address] 07/19/2019 12:00:00 AM EDT eCW1 ([facility]) [address] [address] 07/18/2019 12:00:00 AM EDT eCW1 ([facility]) [facility] [address] [place] [address] 07/16/2019 12:00:00 AM EDT eCW1 ([facility]) [facility] [address] [place] [address] 06/15/2019 12:00:00 AM EST eCW1 ([facility]) [address] [address] 06/06/2019 12:00:00 AM EST eCW1 ([facility]) [facility] [address] [place] [address] 06/05/2019 12:00:00 AM EST eCW1 ([facility]) [address] [address] 05/29/2019 12:00:00 AM EST eCW1 ([facility]) [address] [address] 05/09/2019 12:00:00 AM EST eCW1 ([facility]) [address] [address] 04/17/2019 12:00:00 AM EST eCW1 ([facility]) Medications Medication Brand Name Start Date Product Form Dose Route Admi nistrative Instructions Pharmacy Instructions Status Indications Reaction Description Data Source(s) Metformin HCL ER (Mod) Metformin HCL ER (Mod) 05/14/2020 12:00:00 AM EST ORAL active MEDENT ([facility]) NITROFURANTOIN, MACROCRYSTALS 25 MG / Ni trofurantoin, Monohydrate 75 MG Oral Capsule [Macrobid] Macrobid 100 MG Macrobid 100 MG 04/17/2020 12:00:00 AM EST active Macrobid 100 MG eCW1 ([facility]) NITROFURANTOIN, MACROCRYSTALS 25 MG / Ni trofurantoin, Monohydrate 75 MG Oral Capsule [Macrobid] Macrobid 100 MG Macrobid 100 MG 04/17/2020 12:00:00 AM EST active Macrobid 100 MG eCW1 ([facility]) NITROFURANTOIN, MACROCRYSTALS 25 MG / Ni trofurantoin, Monohydrate 75 MG Oral Capsule [Macrobid] Macrobid 100 MG Macrobid 100 MG 04/17/2020 12:00:00 AM EST active Macrobid 100 MG eCW1 ([facility]) NITROFURANTOIN, MACROCRYSTALS 25 MG / Ni trofurantoin, Monohydrate 75 MG Oral Capsule [Macrobid] Macrobid 100 MG Macrobid 100 MG 04/17/2020 12:00:00 AM EST active Macrobid 100 MG eCW1 ([facility]) Azithromycin 250 MG Oral Tablet Azithromycin 250 MG 03/03/2020 1 2:00:00 AM EST suspended Azithromycin 2 50 MG eCW1 ([facility]) Azithromycin 250 MG Oral Tablet Azithromycin 250 MG 03/03/2020 1 2:00:00 AM EST suspended Azithromycin 2 50 MG eCW1 ([facility]) Azithromycin 250 MG Oral Tablet Azithromycin 250 MG 03/03/2020 1 2:00:00 AM EST suspended Azithromycin 2 50 MG eCW1 ([facility]) Azithromycin 250 MG Oral Tablet Azithromycin 250 MG 03/03/2020 1 2:00:00 AM EST active Azithromycin 250 MG eCW1 ([facility]) Azithromycin 250 MG Oral Tablet Azithromycin 250 MG 03/03/2020 1 2:00:00 AM EST suspended Azithromycin 2 50 MG eCW1 ([facility]) Azithromycin 250 MG Oral Tablet Azithromycin 250 MG 03/03/2020 1 2:00:00 AM EST suspended Azithromycin 2 50 MG eCW1 ([facility]) Azithromycin 250 MG Oral Tablet Azithromycin 250 MG 03/03/2020 1 2:00:00 AM EST active Azithromycin 250 MG eCW1 ([facility]) Azithromycin 250 MG Oral Tablet Azithromycin 250 MG 03/03/2020 1 2:00:00 AM EST suspended Azithromycin 2 50 MG eCW1 ([facility]) Azithromycin 250 MG Oral Tablet Azithromycin 250 MG 03/03/2020 1 2:00:00 AM EST active Azithromycin 250 MG eCW1 ([facility]) Azithromycin 250 MG Oral Tablet Azithromycin 250 MG 03/03/2020 1 2:00:00 AM EST suspended Azithromycin 2 50 MG eCW1 ([facility]) Metformin hydrochloride 500 MG Oral Tablet Metformin HCL 11/20/2019 12:00:00 AM EDT ORAL completed MEDENT ([facility]) Esomeprazole 40 MG Delayed Release Oral Capsule Esomeprazole Magnesium 11/20/2019 12:00:00 AM EDT ORAL active MEDENT ([facility]) Sulfamethoxazole 800 MG / Trimethoprim 1 60 MG Oral Tablet [Bactrim] Bactrim DS 800-160 MG Bactrim DS 800-160 MG 10/28/2019 12:00:00 AM EDT 1.0 {table t} suspended Bactrim DS 800-160 MG eCW1 ( [facility]) Sulfamethoxazole 800 MG / Trimethoprim 1 60 MG Oral Tablet [Bactrim] Bactrim DS 800-160 MG Bactrim DS 800-160 MG 10/28/2019 12:00:00 AM EDT 1.0 {table t} suspended Bactrim DS 800-160 MG eCW1 ( [facility]) Sulfamethoxazole 800 MG / Trimethoprim 1 60 MG Oral Tablet [Bactrim] Bactrim DS 800-160 MG Bactrim DS 800-160 MG 10/28/2019 12:00:00 AM EDT 1.0 {table t} suspended Bactrim DS 800-160 MG eCW1 ( [facility]) Sulfamethoxazole 800 MG / Trimethoprim 1 60 MG Oral Tablet [Bactrim] Bactrim DS 800-160 MG Bactrim DS 800-160 MG 10/28/2019 12:00:00 AM EDT 1.0 {table t} active Bactrim DS 800-160 MG eCW1 ( [facility]) Sulfamethoxazole 800 MG / Trimethoprim 1 60 MG Oral Tablet [Bactrim] Bactrim DS 800-160 MG Bactrim DS 800-160 MG 10/28/2019 12:00:00 AM EDT 1.0 {table t} suspended Bactrim DS 800-160 MG eCW1 ( [facility]) Sulfamethoxazole 800 MG / Trimethoprim 1 60 MG Oral Tablet [Bactrim] Bactrim DS 800-160 MG Bactrim DS 800-160 MG 10/28/2019 12:00:00 AM EDT 1.0 {table t} suspended Bactrim DS 800-160 MG eCW1 ( [facility]) Sulfamethoxazole 800 MG / Trimethoprim 1 60 MG Oral Tablet [Bactrim] Bactrim DS 800-160 MG Bactrim DS 800-160 MG 10/28/2019 12:00:00 AM EDT 1.0 {table t} suspended Bactrim DS 800-160 MG eCW1 ( [facility]) Sulfamethoxazole 800 MG / Trimethoprim 1 60 MG Oral Tablet [Bactrim] Bactrim DS 800-160 MG Bactrim DS 800-160 MG 10/28/2019 12:00:00 AM EDT 1.0 {table t} suspended Bactrim DS 800-160 MG eCW1 ( [facility]) Sulfamethoxazole 800 MG / Trimethoprim 1 60 MG Oral Tablet [Bactrim] Bactrim DS 800-160 MG Bactrim DS 800-160 MG 10/28/2019 12:00:00 AM EDT 1.0 {table t} suspended Bactrim DS 800-160 MG eCW1 ( [facility]) Sulfamethoxazole 800 MG / Trimethoprim 1 60 MG Oral Tablet [Bactrim] Bactrim DS 800-160 MG Bactrim DS 800-160 MG 10/28/2019 12:00:00 AM EDT 1.0 {table t} suspended Bactrim DS 800-160 MG eCW1 ( [facility]) Sulfamethoxazole 800 MG / Trimethoprim 1 60 MG Oral Tablet [Bactrim] Bactrim DS 800-160 MG Bactrim DS 800-160 MG 10/28/2019 12:00:00 AM EDT 1.0 {table t} suspended Bactrim DS 800-160 MG eCW1 ( [facility]) Clindamycin 300 MG Oral Capsule Clindamycin HCl 300 MG Clind amycin HCl 300 MG 09/01/2019 12:00:00 AM EDT active 1 capsule eCW1 ([facility]) benzonatate 100 MG Oral Capsule [Tessalon Perles] April harvey Perles 100 MG Tessalon Perles 100 MG 07/19/2019 12:00:00 AM EDT suspended 1 capsule as needed eCW1 ([facility]) Prednisone 20 MG Oral Tablet PredniSONE 20 MG PredniSONE 20 MG 07/19/2019 12:00:00 AM EDT active 1 tablet eCW1 ([facility]) benzonatate 100 MG Oral Capsule [Tessalon Perles] April harvey Perles 100 MG Tessalon Perles 100 MG 07/19/2019 12:00:00 AM EDT active 1 capsule as needed eCW1 ([facility]) 200 ACTUAT Albuterol 0.09 MG/ACTUAT Mete red Dose Inhaler [ProAir] ProAir HFA 108 (90 Base) MCG/ACT ProAir HFA 108 (90 Base) MCG/ACT 07/19/2019 12:00:00 AM EDT 2.0 {puffs_as_needed} suspended ProAir HFA 108 (90 Base) MCG/ACT eCW1 ([facility]) 200 ACTUAT Albuterol 0.09 MG/ACTUAT Mete red Dose Inhaler [ProAir] ProAir HFA 108 (90 Base) MCG/ACT ProAir HFA 108 (90 Base) MCG/ACT 07/19/2019 12:00:00 AM EDT 2.0 {puffs_as_needed} suspended ProAir HFA 108 (90 Base) MCG/ACT eCW1 ([facility]) 200 ACTUAT Albuterol 0.09 MG/ACTUAT Mete red Dose Inhaler [ProAir] ProAir HFA 108 (90 Base) MCG/ACT ProAir HFA 108 (90 Base) MCG/ACT 07/19/2019 12:00:00 AM EDT 2.0 {puffs_as_needed} suspended ProAir HFA 108 (90 Base) MCG/ACT eCW1 ([facility]) Prednisone 20 MG Oral Tablet PredniSONE 20 MG PredniSONE 20 MG 07/19/2019 12:00:00 AM EDT suspended 1 tab let eCW1 ([facility]) 200 ACTUAT Albuterol 0.09 MG/ACTUAT Mete red Dose Inhaler [ProAir] ProAir HFA 108 (90 Base) MCG/ACT ProAir HFA 108 (90 Base) MCG/ACT 07/19/2019 12:00:00 AM EDT 2.0 {puffs_as_needed} active Pr oAir HFA 108 (90 Base) MCG/ACT eCW1 ([facility]) 200 ACTUAT Albuterol 0.09 MG/ACTUAT Mete red Dose Inhaler [ProAir] ProAir HFA 108 (90 Base) MCG/ACT ProAir HFA 108 (90 Base) MCG/ACT 07/19/2019 12:00:00 AM EDT 2.0 {puffs_as_needed} suspended ProAir HFA 108 (90 Base) MCG/ACT eCW1 ([facility]) 200 ACTUAT Albuterol 0.09 MG/ACTUAT Mete red Dose Inhaler [ProAir] ProAir HFA 108 (90 Base) MCG/ACT ProAir HFA 108 (90 Base) MCG/ACT 07/19/2019 12:00:00 AM EDT active 2 puffs as neede d eCW1 ([facility]) 200 ACTUAT Albuterol 0.09 MG/ACTUAT Mete red Dose Inhaler [ProAir] ProAir HFA 108 (90 Base) MCG/ACT ProAir HFA 108 (90 Base) MCG/ACT 07/19/2019 12:00:00 AM EDT 2.0 {puffs_as_needed} suspended ProAir HFA 108 (90 Base) MCG/ACT eCW1 ([facility]) 200 ACTUAT Albuterol 0.09 MG/ACTUAT Mete red Dose Inhaler [ProAir] ProAir HFA 108 (90 Base) MCG/ACT ProAir HFA 108 (90 Base) MCG/ACT 07/19/2019 12:00:00 AM EDT active 2 puffs as neede d eCW1 ([facility]) benzonatate 100 MG Oral Capsule [Tessalon Perles] April harvey Perles 100 MG Tessalon Perles 100 MG 07/19/2019 12:00:00 AM EDT active 1 capsule as needed eCW1 ([facility]) 200 ACTUAT Albuterol 0.09 MG/ACTUAT Mete red Dose Inhaler [ProAir] ProAir HFA 108 (90 Base) MCG/ACT ProAir HFA 108 (90 Base) MCG/ACT 07/19/2019 12:00:00 AM EDT 2.0 {puffs_as_needed} suspended ProAir HFA 108 (90 Base) MCG/ACT eCW1 ([facility]) Prednisone 20 MG Oral Tablet PredniSONE 20 MG PredniSONE 20 MG 07/19/2019 12:00:00 AM EDT active 1 tablet eCW1 ([facility]) 200 ACTUAT Albuterol 0.09 MG/ACTUAT Mete red Dose Inhaler [ProAir] ProAir HFA 108 (90 Base) MCG/ACT ProAir HFA 108 (90 Base) MCG/ACT 07/19/2019 12:00:00 AM EDT 2.0 {puffs_as_needed} suspended ProAir HFA 108 (90 Base) MCG/ACT eCW1 ([facility]) 200 ACTUAT Albuterol 0.09 MG/ACTUAT Mete red Dose Inhaler [ProAir] ProAir HFA 108 (90 Base) MCG/ACT ProAir HFA 108 (90 Base) MCG/ACT 07/19/2019 12:00:00 AM EDT active 2 puffs as neede d eCW1 ([facility]) 200 ACTUAT Albuterol 0.09 MG/ACTUAT Mete red Dose Inhaler [ProAir] ProAir HFA 108 (90 Base) MCG/ACT ProAir HFA 108 (90 Base) MCG/ACT 07/19/2019 12:00:00 AM EDT 2.0 {puffs_as_needed} suspended ProAir HFA 108 (90 Base) MCG/ACT eCW1 ([facility]) 200 ACTUAT Albuterol 0.09 MG/ACTUAT Mete red Dose Inhaler [ProAir] ProAir HFA 108 (90 Base) MCG/ACT ProAir HFA 108 (90 Base) MCG/ACT 07/19/2019 12:00:00 AM EDT 2.0 {puffs_as_needed} suspended ProAir HFA 108 (90 Base) MCG/ACT eCW1 ([facility]) 200 ACTUAT Albuterol 0.09 MG/ACTUAT Mete red Dose Inhaler [ProAir] ProAir HFA 108 (90 Base) MCG/ACT ProAir HFA 108 (90 Base) MCG/ACT 07/19/2019 12:00:00 AM EDT active 2 puffs as neede d eCW1 ([facility]) 200 ACTUAT Albuterol 0.09 MG/ACTUAT Mete red Dose Inhaler [ProAir] ProAir HFA 108 (90 Base) MCG/ACT ProAir HFA 108 (90 Base) MCG/ACT 07/19/2019 12:00:00 AM EDT 2.0 {puffs_as_needed} suspended ProAir HFA 108 (90 Base) MCG/ACT eCW1 ([facility]) Levofloxacin 500 MG Oral Tablet Levofloxacin 500 MG 06/05/2019 1 2:00:00 AM EST active 1 tablet eCW1 ([facility]) Insurance Providers Payer name Policy type / Coverage type Policy ID Covered democrat ID Covered democrat's relationship to sanchez Policy Sanchez Plan Information [facility] [employer] [id number] SP [id number] [facility] B [id number] S [id number] [facility] [employer] [id number] SP [id number] ANSI-Commercial [id number] ANSI-Commercial [id number] ANSI-Commercial [id number] ANSI-Commercial [id number] ANSI-Commercial [id number] ANSI-Commercial [id number] [employer] Federal Commercial [id number] Self [id number] [employer] [place] Commercial [id number] Self [id number] ANSI-Commercial [id number] ANSI-Commercial [id number] ANSI-Commercial [id number] ANSI-Commercial [id number] ANSI-Commercial [id number] ANSI-Commercial [id number] ANSI-Commercial [id number] ANSI-Commercial [id number] ANSI-Commercial [id number] [employer] Federal Commercial [id number] Self [id number] [employer] [place] Commercial [id number] Self [id number] ANSI-Commercial [id number] ANSI-Commercial [id number] ANSI-Commercial [id number] ANSI-Commercial [id number] ANSI-Commercial [id number] ANSI-Commercial [id number] [facility] [employer]EE PROGRAM [id number] SP [id number] [facility] FEDERAL EMPLOYEE PROGRAM [id number] SP [id number] [employer] Medigap Part B [id number] Self R [id number] [facility] Health Maintenance Organization (HMO) [id number] Self [id number] [employer] [id number] SP [id number] [employer] [id number] SP [id number] [employer] FED[employer]AL [id number] SP [id number] [employer] Medigap Part B [id number] Self R [id number] [employer] BS FEDERAL [id number] SP [id number] [facility] Federal Commercial [id number] Self [id number] José Miguel [facility] Health Maintenance Organization (HMO) [id number] Self [id number] [facility] Federal Commercial [id number] Self [id number] OJS[address] MIGUEL [facility] [id number] Dorothy [id number] JOS[address] MIGUEL [facility] PI PI JOSÉ MIGUEL [facility] FEDERAL [id number] SP [id number] [facility] Federal Medigap Part B Self José Miguel [facility] Health Maintenance Organization (HMO) Self JOSÉ MIGUEL [facility] FEDERAL [id number] SP [id number] [place] [employer] [id number] SP [id number] [place] [employer] [id number] SP [id number] Problems, Conditions, and Diagnoses Code Display Name Description Problem Type Effective Dates Data Source(s) 684961803 Electrocardiogram abnormal Electrocardiogram abnormal Problem 05/15/2020 12:00:00 AM EST MEDENT ([facility]) [id number] Dyspnea Dyspnea Problem 05/15/2020 12:00:00 AM ES T MEDENT ([facility]) F43.21 [id number] Adjustment disorder with depressed mood P justinalem 03/03/2020 12:00:00 AM EST eCW1 ([facility]) E11.9 [id number] Type 2 diabetes cindy itus without complication, without long-term current use of insulin Problem 08/16/2019 12:00:00 AM EDT eCW1 ([facility]) E11.9 [id number] Type 2 diabetes cindy itus without complication, without long-term current use of insulin Problem 08/16/2019 12:00:00 AM EDT eCW1 ([facility]) J32.9 [id number] Sinusitis, unspecified chronicity, unspec ified location Problem 08/02/2019 12:00:00 AM EDT eCW1 ([facility]) J32.9 [id number] Sinusitis, unspecified chronicity, unspec ified location Problem 08/02/2019 12:00:00 AM EDT eCW1 ([facility]) K21.9 [id number] Chronic GERD Problem 04/17/2019 12:00:00 AM EST eCW1 ([facility]) Surgeries/Procedures Procedure Description Date Indications Data Source(s) ECHO TTHRC R-T 2D W/WOM-MODE COMPL SPEC&COLR DOP 05/27 12:00:00 AM EST MEDENT ([facility]) ECG ROUTINE ECG W/LEAST 12 LDS W/I&R 05/15/2020 12:00: 00 AM EST MEDENT ([facility]) uro PVR (Post Voiding Residual) Bladder Scan 12:00:00 AM EST eCW1 ([facility]) ECG ROUTINE ECG W/LEAST 12 LDS W/I&R 11/21/2019 12:00: 00 AM EDT MEDENT ([facility]) TeleMedicine Est. Pt. Level 3 08/16/2019 12:00:00 AM E DT eCW1 ([facility]) Influenza A+B 07/19/2019 12:00:00 AM EDT eCW1 ([facility]) PSYTX W PT 45 MINUTES 06/06/2019 12:00:00 AM EST eCW1 ([facility]) Results ID Date Data Source [id number] 05/19/2020 09:06:00 AM EST MEDENT ([facility]) Name Value Range Interpretation Code Description Data Victorina rce(s) Supporting Document(s) Triglycerides 186 MEDENT ([facility]) HDL 70 [facility] Cholesterol in LDL [Mass/volume] in Serum or Plasma by calculation 37 MEDENT ([facility]) Cholesterol 144 MEDENT ([facility]) Chol/HDL Ratio 2.057 MEDENT ([facility]) ID Date Data Source [id number] 05/19/2020 09:06:00 AM EST MEDENT ([facility]) Name Value Range Interpretation Code Description Data Victorina rce(s) Supporting Document(s) Alanine aminotransferase [Enzymatic activity/volume] in Serum or Pl asma 34 MEDENT ([facility]) Calcium [Mass/volume] in Serum or Plasma 10.1 MEDENT ([facility]) Albumin [Mass/volume] in Serum or Plasma 4.2 MED[facility] ([facility]) Alkaline phosphatase [Enzymatic activity/volume] in Serum or Plasma 9 7 MEDENT ([facility]) Carbon dioxide, total [Moles/volume] in Serum or Plasma 29 MEDENT ([facility]) Chloride [Moles/volume] in Serum or Plasma 105 MEDENT ([facility]) Sodium 140 MED[facility] ([facility] Protein [Mass/volume] in Serum or Plasma 7.6 MEDENT ([facility]) Potassium [Moles/volume] in Serum or Plasma 4.6 MED[facility] ([facility]) Aspartate aminotransferase [Enzymatic activity/volume] in Serum or Plasma 19 MEDENT ([facility]) Glucose 109 70-100 MEDENT ([facility]) Urea nitrogen [Mass/volume] in Serum or Plasma 11 MEDENT ([facility]) Creatinine For GFR 0.97 MEDENT ([facility]) ID Date Data Source [id number] 05/19/2020 09:06:00 AM EST MEDENT ([facility]) Name Value Range Interpretation Code Description Data Victorina rce(s) Supporting Document(s) Red Blood Count 4.85 4.00-5.40 MED[facility] ([facility]) White Blood Count 7.2 4.0-10.0 MEDENT ([facility]) Platelets 271 150-450 MEDENT ([facility]) Hemoglobin 15.2 MED[facility] ([facility]) Hematocrit 47.3 MEDENT ([facility]) ID Date Data Source URINE CULTURE 04/15/2020 12:00:00 AM EST eCW1 ([facility]) Name Value Range Interpretation Code Description Data Victorina rce(s) Supporting Document(s) Laboratory studies (set) URINE CULTU RE eCW1 ([facility]) ID Date Data Source UA URINALYSIS 04/15/2020 12:00:00 AM EST eCW1 ([facility]) Name Value Range Interpretation Code Description Data Victorina rce(s) Supporting Document(s) UA URINALYSIS eCW1 ([facility]) ID Date Data Source [id number] 03/04/2020 11:24:00 AM EST MEDENT ([facility]) Name Value Range Interpretation Code Description Data Victorina rce(s) Supporting Document(s) Hemoglobin A1c/Hemoglobin.total in Blood 6.0 MEDENT ([facility]) ID Date Data Source [id number] 11/21/2019 11:18:00 AM EDT MEDENT ([facility]) Name Value Range Interpretation Code Description Data Victorina rce(s) Supporting Document(s) Hemoglobin A1c/Hemoglobin.total in Blood 6.0 MEDENT ([facility]) ID Date Data Source [id number] 11/21/2019 11:18:00 AM EDT MEDENT ([facility]) Name Value Range Interpretation Code Description Data Victorina rce(s) Supporting Document(s) Calcium [Mass/volume] in Serum or Plasma 9.3 MEDENT ([facility]) Sodium 137 MEDENT ([facility]) Chloride [Moles/volume] in Serum or Plasma 105 MEDENT ([facility]) Carbon dioxide, total [Moles/volume] in Serum or Plasma 31 MEDENT ([facility]) Glucose 95 70-100 MEDENT ([facility]) Potassium [Moles/volume] in Serum or Plasma 4.9 MEDENT ([facility]) Blood Urea Nitrogen 11 7-18 MED[facility] ([facility]) Creatinine 0.86 0.55-1.30 MEDENT ([facility]) Glomerular filtration rate/1.73 sq M.pre dicted [Volume Rate/Area] in Serum or Plasma by Creatinine-based formula (MDRD) Laboratory test result MEDENT ([facility]) ID Date Data Source [id number] 08/15/2019 04:21:00 PM EDT MEDENT ([facility]) Name Value Range Interpretation Code Description Data Victorina rce(s) Supporting Document(s) Hemoglobin A1c/Hemoglobin.total in Blood 6.5 MEDENT ([facility]) ID Date Data Source [id number] 08/15/2019 04:21:00 PM EDT MEDENT ([facility]) Name Value Range Interpretation Code Description Data Victorina rce(s) Supporting Document(s) Glucose 96 70-100 MED[facility] ([facility]) Blood Urea Nitrogen 15 7-18 MED[facility] ([facility]) Sodium 142 136-145 [facility] Creatinine 0.86 0.55-1.30 MED[facility] ([facility]) Potassium 4.3 3.5-5.1 [facility] Carbon Dioxide 31 21-32 MED[facility] ([facility]) Calcium 9.2 8.2-9.6 [facility] Chloride 107 98-107 [facility] Glomerular filtration rate/1.73 sq M.pre dicted [Volume Rate/Area] in Serum or Plasma by Creatinine-based formula (MDRD) Laboratory test result MEDENT ([facility]) ID Date Data Source [id number] 07/19/2019 01:25:00 PM EDT [facility] Name Value Range Interpretation Code Description Data Victorina rce(s) Supporting Document(s) SARS CORONAVIRUS 2 RNA [facility] This lab was ordered by [facility] and reported by [facility]. ID Date Data Source RESPIRATORY PANEL 07/19/2019 12:00:00 AM EDT eCW1 ([facility]) Name Value Range Interpretation Code Description Data Victorina rce(s) Supporting Document(s) This respiratory PCR panel detects Influenza A H1, H3 and RESPIRATORY PANEL eCW1 ([facility]) Procedure Social History Code Duration Value Status Description Data Source(s ) Smoking 05/15/2020 12:00:00 AM EST Patient is a former smoker completed Patient is a former smoker MEDENT ([facility]) Smoking 04/15/2020 12:00:00 AM EST Former Smoker completed Former Smoker eCW1 ([facility]) Smoking 04/15/2020 12:00:00 AM EST Former Smoker completed Former Smoker eCW1 ([facility]) Smoking 04/15/2020 12:00:00 AM EST Former Smoker completed Former Smoker eCW1 ([facility]) Smoking 04/15/2020 12:00:00 AM EST Former Smoker completed Former Smoker eCW1 ([facility]) Smoking 04/15/2020 12:00:00 AM EST Former Smoker completed Former Smoker eCW1 ([facility]) Smoking 04/01/2020 12:00:00 AM EST Former Smoker completed Former Smoker eCW1 ([facility]) Smoking 04/01/2020 12:00:00 AM EST Former Smoker completed Former Smoker eCW1 ([facility]) Smoking 03/03/2020 12:00:00 AM EST Former Smoker completed Former Smoker eCW1 ([facility]) Smoking 03/03/2020 12:00:00 AM EST Former Smoker completed Former Smoker eCW1 ([facility]) Smoking 03/03/2020 12:00:00 AM EST Former Smoker completed Former Smoker eCW1 ([facility]) Smoking 10/28/2019 12:00:00 AM EDT Former Smoker completed Former Smoker eCW1 ([facility]) Vital Signs ID Date Data Source UNK Name Value Range Interpretation Code Description Data Source(s) Diastolic blood pressure--sitting 78 mm[Hg] 78 mm[Hg] MEDENT ([facility]) large cuff, Ra Systolic blood pressure--sitting 124 mm[Hg] 124 mm[Hg] MEDENT ([facility]) large cuff, Ra Heart rate 67 /min 67 /min MEDENT ([facility]) Body mass index (BMI) [Ratio] 39.3 kg/m2 39.3 k g/m2 MEDENT ([facility]) Body height 65 [in_i] 65 [in_i] MEDENT ([facility]) 5'5" Body weight 236.00 [lb_av] 236.00 [lb_av] MEDEN T ([facility]) Diastolic blood pressure 74 mm[Hg] 74 mm[Hg] eCW1 ([facility]) Systolic blood pressure 124 mm[Hg] 124 mm[Hg] e CW1 ([facility]) Body temperature 98.1 [degF] 98.1 [degF] eCW1 ( [facility]) Respiratory rate 18 /min 18 /min eCW1 ([facility]) Heart rate 72 /min 72 /min eCW1 ([facility]) Body mass index (BMI) [Ratio] 39.73 kg/m2 39.73 kg/m2 eCW1 ([facility]) Body height 65 [in_i] 65 [in_i] eCW1 ([facility]) Body weight 238.8 [lb_av] 238.8 [lb_av] eCW1 ([facility]) Diastolic blood pressure 75 mm[Hg] 75 mm[Hg] eCW1 ([facility]) Systolic blood pressure 126 mm[Hg] 126 mm[Hg] e CW1 ([facility]) Body temperature 98.23 [degF] 98.23 [degF] eCW1 ([facility]) Respiratory rate 17 /min 17 /min eCW1 ([facility]) Heart rate 77 /min 77 /min eCW1 ([facility]) Body mass index (BMI) [Ratio] 39.40 kg/m2 39.40 kg/m2 eCW1 ([facility]) Body height 65 [in_i] 65 [in_i] eCW1 ([facility]) Body weight 236.8 [lb_av] 236.8 [lb_av] eCW1 ([facility]) Diastolic blood pressure 74 mm[Hg] 74 mm[Hg] eCW1 ([facility]) Systolic blood pressure 140 mm[Hg] 140 mm[Hg] e CW1 ([facility]) Body temperature 97.2 [degF] 97.2 [degF] eCW1 ( [facility]) Respiratory rate 17 /min 17 /min eCW1 ([facility]) Heart rate 79 /min 79 /min eCW1 ([facility]) Body mass index (BMI) [Ratio] 40.00 kg/m2 40.00 kg/m2 eCW1 ([facility]) Body height 65 [in_i] 65 [in_i] eCW1 ([facility]) Body weight 240.4 [lb_av] 240.4 [lb_av] eCW1 ([facility]) Diastolic blood pressure--sitting 78 mm[Hg] 78 mm[Hg] MEDENT ([facility]) large cuff, Ra Systolic blood pressure--sitting 116 mm[Hg] 116 mm[Hg] MEDENT ([facility]) large cuff, Ra Heart rate 72 /min 72 /min MEDENT ([facility]) Body mass index (BMI) [Ratio] 38.8 kg/m2 38.8 k g/m2 MEDENT ([facility]) Body height 65 [in_i] 65 [in_i] MEDENT ([facility]) 5'5" Body weight 233.00 [lb_av] 233.00 [lb_av] MEDEN T ([facility]) Diastolic blood pressure 86 mm[Hg] 86 mm[Hg] eCW1 ([facility]) Systolic blood pressure 125 mm[Hg] 125 mm[Hg] e CW1 ([facility]) Body temperature 99.2 [degF] 99.2 [degF] eCW1 ( [facility]) Respiratory rate 20 /min 20 /min eCW1 ([facility]) Heart rate 102 /min 102 /min eCW1 ([facility]) Body mass index (BMI) [Ratio] 39.27 kg/m2 39.27 kg/m2 eCW1 ([facility]) Body height 65 [in_us] 65 [in_us] eCW1 ([facility]) Body weight Measured 236 [lb_av] 236 [lb_av] eC W1 ([facility]) Diastolic blood pressure 88 mm[Hg] 88 mm[Hg] eCW1 ([facility]) Systolic blood pressure 130 mm[Hg] 130 mm[Hg] e CW1 ([facility]) Body temperature [degF] eCW1 ([facility]) Respiratory rate 28 /min 28 /min eCW1 ([facility]) Heart rate 97 /min 97 /min eCW1 ([facility]) Body mass index (BMI) [Ratio] 39.43 kg/m2 39.43 kg/m2 eCW1 ([facility]) Body height 65 [in_us] 65 [in_us] eCW1 ([facility]) Body weight Measured 237 [lb_av] 237 [lb_av] eC W1 ([facility]) Diastolic blood pressure 60 mm[Hg] 60 mm[Hg] eCW1 ([facility]) Systolic blood pressure 115 mm[Hg] 115 mm[Hg] e CW1 ([facility]) Body temperature 98.8 [degF] 98.8 [degF] eCW1 ( [facility]) Respiratory rate 18 /min 18 /min eCW1 ([facility]) Heart rate 78 /min 78 /min eCW1 ([facility]) Body mass index (BMI) [Ratio] 40.60 kg/m2 40.60 kg/m2 eCW1 ([facility]) Body height 65 [in_us] 65 [in_us] eCW1 ([facility]) Body weight Measured 244 [lb_av] 244 [lb_av] eC W1 ([facility]) Diastolic blood pressure 87 mm[Hg] 87 mm[Hg] eCW1 ([facility]) Systolic blood pressure 167 mm[Hg] 167 mm[Hg] e CW1 ([facility]) Body temperature 96.7 [degF] 96.7 [degF] eCW1 ( [facility]) Respiratory rate 17 /min 17 /min eCW1 ([facility]) Heart rate 75 /min 75 /min eCW1 ([facility]) Body mass index (BMI) [Ratio] 39.97 kg/m2 39.97 kg/m2 eCW1 ([facility]) Body height 65 [in_us] 65 [in_us] eCW1 ([facility]) Body weight Measured 240.2 [lb_av] 240.2 [lb_av ] eCW1 ([facility]) Patient Treatment Plan of Care Planned Activity Planned Date Details Description Data Source (s) NITROFURANTOIN, MACROCRYSTALS 25 MG / Ni trofurantoin, Monohydrate 75 MG Oral Capsule [Macrobid] 04/17/2020 12:00:00 AM EST eC W1 ([facility]) NITROFURANTOIN, MACROCRYSTALS 25 MG / Ni trofurantoin, Monohydrate 75 MG Oral Capsule [Macrobid] 04/17/2020 12:00:00 AM EST eC W1 ([facility]) NITROFURANTOIN, MACROCRYSTALS 25 MG / Ni trofurantoin, Monohydrate 75 MG Oral Capsule [Macrobid] 04/17/2020 12:00:00 AM EST eC W1 ([facility]) NITROFURANTOIN, MACROCRYSTALS 25 MG / Ni trofurantoin, Monohydrate 75 MG Oral Capsule [Macrobid] 04/17/2020 12:00:00 AM EST eC W1 ([facility]) Azithromycin 250 MG Oral Tablet 03/03/2020 12:00:00 AM EST eCW1 ([facility]) Azithromycin 250 MG Oral Tablet 03/03/2020 12:00:00 AM EST eCW1 ([facility]) Azithromycin 250 MG Oral Tablet 03/03/2020 12:00:00 AM EST eCW1 ([facility]) Sulfamethoxazole 800 MG / Trimethoprim 160 MG Oral Tab let [Bactrim] 10/28/2019 12:00:00 AM EDT eCW1 ([facility]) Clindamycin 300 MG Oral Capsule 09/01/2019 12:00:00 AM EDT eCW1 ([facility]) benzonatate 100 MG Oral Capsule [Tessalon Perles] 07/19/2019 12: 00:00 AM EDT eCW1 ([facility]) 200 ACTUAT Albuterol 0.09 MG/ACTUAT Metered Dose Inhal er [ProAir] 07/19/2019 12:00:00 AM EDT eCW1 ([facility]) Prednisone 20 MG Oral Tablet 07/19/2019 12:00:00 AM EDT eCW1 ([facility]) Levofloxacin 500 MG Oral Tablet 06/05/2019 12:00:00 AM EST eCW1 ([facility])
--- OUTSIDE RECORDS SUMMARY | 2020-06-13 12:24 | CCD ---
Author Author [facility] Organization [facility] Address Unknown Phone Unavailable Care Team Providers Care Garment Liner Name Role Phone Azul Samano Unavailable PROBLEMS Type Condition ICD9-CM Code [id number] Code Onset Dates Condition S tatus SNOMED Code Notes Problem Diverticulosis of large intestine without hemorrhage K57.30 Active 952637770 Problem Irritable bowel syndrome, unspecified type K58.9 Active 62794571 Problem Vitamin D deficiency E55.9 Active 48332976 Problem Gastroesophageal reflux disease, esophagitis pre sence not specified K21.9 Active 839445978 Problem Mixed hyperlipidemia E78.2 Active 383560379 Problem Hiatal hernia K44.9 Active 96629133 Problem History of non-ST elevation myocardial infarction (NSTEMI) I25.2 Active 885698702 Problem Tobacco use Z72.0 Active 104530123 Problem Impaired fasting glucose R73.01 Active 4255443 07 Problem Atherosclerosis of [place] ronary artery of [place] heart without angina pectoris I25.10 Active 8694309013595 Stenting of distal LAD and mid 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/2016 Problem Influenza vaccination declined Z28.21 Active 3 30582129 Problem Dyslipidemia E78.5 Active 047113049 Problem JESSICA (obstructive sleep apnea) G47.33 Active 78 592260 Problem Type 2 diabetes mellitus wit hout complication, without long-term current use of insulin E11.9 Active 149390691 Problem Hypothyroidism, unspecified type E03.9 Active 04134885 Problem Penicillin allergy Z88.0 Active 24363778 Problem Adjustment disorder with depressed mood F43.21 Active 23681461 Problem Anxiety F41.9 Active 18255646 Problem Essential hypertension I10 Active 35275436 Problem Acquired hypothyroidism E03.9 Active 06500796 2 Problem Moderate episode of recurrent major depressive disorder F33.1 Active 461770544 Problem Major depressive disorder, recurrent, moderate F33 .1 Active 827683176 Problem Chronic GERD K21.9 Active 462010865 Problem Sinusitis, unspecified chronicity, unspecified location J32.9 Active 26039822 ALLERGIES Allergen (clinical drug ingredient) Drug/Non Drug Allergy do cumented on EMR Reaction Allergy Type Onset Date Status tetracycline Tetracycline HCl([facility] Code:[address]-64) itching Drug Allergy Active penicillin V Penicillin V Potassium([facility] Code:[address]-11) A naphylaxis Drug Allergy Active amoxicillin / clavulanate Augmentin([facility] Code:[address]-40) Diar helena Drug Allergy Active benzonatate Tessalon Perles([facility] Code:[address]-26) itchy Drug A llergy Active Pt states all "cillins" Anaphylaxis Non Drug Allergy Active Penicillin (For Allergies Use Only) anaphylaxis Drug Aller gy Active ENCOUNTERS from 1955 to 2020-03-17 Encounter Location Date Provider Diagnosis [facility] [address] [address] 11 Mar, 2020 Azul Samano Major depressive disorder, [...] Education Language: Question Answer Notes Languages spoken: Arabic Congregational: Question Answer Notes [employer] [facility] [employer] [facility] [employer] Question Answer [...] moderate ( ICD-10 - F33.1) Royce attended initial appointment for intake assessment. Previous history of counseling at this location with different provider. Royce presents with history of depression and anxiety. Denies SI, SH, HI, AVH. Royce is active and engaged in session. Gathered psycho social information for intake assessment. Royce is scheduled for follow up appointment 03/18/2020. Royce is aware to call for earlier [...] Major depressive disorder, recurrent, moderate Royce attended initial appointment for intake assessment. Previous history of counseling at this location with different provider. Royce presents with history of depression and anxiety. Denies SI, SH, HI, AVH. Royce is active and engaged in session. Gathered psycho social information for intake assessment. Royce is scheduled for follow up appointment 03/18/2020. Royce is aware to call for earlier appointment if needed and to use ER for mental health emergencies. Next Appt Details Provider Name:Azul Hart, 2020-03-18 02:00:00 PM, [address] [address], [place], [address] Provider Name:Azul Selwyn 2020-03-25 02:00:00 PM, [address] [address], [place], [address] Insurance Providers Payer Name Payer Address Payer Phone Insured Name Patient Relati onship to Insured Coverage Start Date Coverage End Date MERT ARREOLA [address] [facility] [id number] [phone] ROYCE BAARJAS self
[2020-06-13] MEDS ORDERED: NS 1,000 ML IV ONE (13:00)
--- OUTSIDE RECORDS SUMMARY | 2020-06-13 13:03 | CCD ---
Author Author [facility] Organization [facility] Address Unknown Phone Unavailable Support Name Relationship Address Phone RE Next Of Kin Unknown Unavailable KRISTOPHER MURPHY Next Of Kin [phone] [place] [address] KRISTOPHER DUEÑAS Next Of Kin [address] [place] [address] DEPT OF DEFENSE Next Of Kin [address] [place] [id number] KRISTOPHER CAIN Next Of Kin [phone] [facility] [place] [address] KRISTOPHER BARAJAS Next Of Kin [phone] [facility] [place] [id number] NATALIIA CAIN Next Of Kin [address] [facility] [place] [address] KELLI DUEÑAS Next Of Kin [phone] [facility] [place] [address] DIAMANTE DUEÑAS Next Of Kin [phone] [facility] [place] [address] DEPT. OF DEFENSE Next Of Kin [address] [place] [phone] DAMION CHIN Next Of Kin [phone] [facility] [place] [address] Kristopher Cain ECON [address] [facility] [place] [address] Unavailable Care Team Providers Care Pit Furnace Operator Name Role Phone Eloy Cristina Unavailable Unavailable [...] is protected by Article 27-F of the [place] State Public Health law. If you continue you may have access to information: Regarding HIV / AIDS; Provided by facilities licensed or operated by the [facility] [place] Office of Mental Health; or Provided by the [facility] [place] Office for People With Developmental Disabilities. If such information is present, then the following [facility] mandated warning applies: This information has been [...] law may result in a fine or mcfp sentence or both. A general authorization for the release of medical or other information is NOT sufficient authorization for further disc losure. Allergies and Adverse Reactions Type Description Substance Reaction Status Data Source(s ) Drug allergy Tessalon Perles benzonatate itchy Active eCW1 ( [facility]) Drug allergy Augmentin amoxicillin / clavulanate Diarrhea Active eCW1 ([facility]) Drug allergy Penicillin V Potassium Penicillin V Anaphylaxis Active eCW1 ([facility]) tetracycline Tetracycline HCl Tetracycline itching Active eCW1 ([facility]) Pt states all "cillins" Pt states all "cillins" Pt states all "c illins" Anaphylaxis Active eCW1 ([facility]) Pt states all "cillins" Pt states all "cillins" Pt states all "c illins" Anaphylaxis Active eCW1 ([facility]) Pt states all "cillins" Pt states all "cillins" Pt states all "c illins" Anaphylaxis Active eCW1 ([facility]) Pt states all "cillins" Pt states all "cillins" Pt states all "c illins" Anaphylaxis Active eCW1 ([facility]) Family History Family Member Name Family Member Gender Family Member Status Date o f Status Description Data Source(s) Unknown Male Problem MEDENT ([facility]) at age 61 Unknown Unknown Problem MEDENT ([facility], ) Unknown Unknown Problem MEDENT ([facility], ) Unknown Unknown Problem MEDENT ([facility] ) Unknown Unknown Problem MEDENT ([facility], ) mother age 26 still living Encounters Encounter Providers Location Date Indications Data Source(s ) Office Visit Attender: BACILIO DE GUZMAN Main Office 09:15:00 AM EST MEDENT ([facility]) Unknown [address] [facility] [address] 04/17/2020 12:00:00 AM EST eCW1 ([facility]) Unknown [address] [facility] [place] [address] 04/17/2020 12:00:00 AM EST eCW1 [facility] ([facility]) Behave Health Scheduled Visit [address] [place] [address] 04/16/2020 12:00:00 AM EST eCW1 ([facility]) Outpatient [address] [facility] [place] [address] 04/15/2020 12:00:00 AM EST eCW1 ([facility]) Unknown [address] [facility] Y [address] 04/15/2020 12:00:00 AM EST eCW1 ([facility]) Outpatient [address] [facility] [place] [address] 04/01/2020 12:00:00 AM EST eCW1 ([facility] Scheduled Visit [address] [place] [address] 04/01/2020 12:00:00 AM EST eCW1 ([facility]) [facility] Scheduled Visit [address] [place] [address] 03/18/2020 12:00:00 AM EST eCW1 ([facility]) Outpatient [address] [facility] [place] [address] 03/12/2020 12:00:00 AM EST eCW1 ([facility]) Outpatient [address] [facility] [place] [address] 03/03/2020 12:00:00 AM EST eCW1 ([facility]) [facility] [address] [place] [address] 02/01/2020 12:00:00 AM EDT eCW1 ([facility]) Unknown [address] [facility] [place] [address] 01/22/2020 12:00:00 AM EDT eCW1 ([facility]) [facility] [place] [address] [facility] [address] 11/27/2019 12:00:00 AM EDT eCW1 ([facility]) Outpatient Attender: Radha DE GUZMAN Main Office 11/21/2019 01:00:0 0 PM EDT MEDENT ([facility]) Unknown [address] [facility] [address] 10/02/2019 12:00:00 AM EDT eCW1 [facility] [place] [address] [facility] [address] 09/20/2019 12:00:00 AM EDT eCW1 ([facility]) [facility] [address] [place] [address] 09/01/2019 12:00:00 AM EDT eCW1 ([facility]) [facility] [address] [facility] [address] 08/20/2019 12:00:00 AM EDT eCW1 ([facility]) [facility] [place] [address] [facility] [address] 08/17/2019 12:00:00 AM EDT eCW1 [facility] [address] [facility] [address] 08/16/2019 12:00:00 AM EDT eCW1 ([facility]) [facility] [address] [facility] [address] 08/16/2019 12:00:00 AM EDT eCW1 ([facility]) Outpatient 2019 06:07:00 AM EDT [facility] [address] [facility] [address] 08/02/2019 12:00:00 AM EDT eCW1 ([facility]) [facility] [address] [address] 07/20/2019 12:00:00 AM EDT eCW1 ([facility]) [address] [address] 07/19/2019 12:00:00 AM EDT eCW1 ([facility]) [facility] [address] [place] [address] 07/18/2019 12:00:00 AM EDT eCW1 ([facility]) [facility] [address] [place] [address] 07/16/2019 12:00:00 AM EDT eCW1 ([facility]) [facility] [address] [place] [address] 06/15/2019 12:00:00 AM EST eCW1 ([facility]) [address] [address] 06/06/2019 12:00:00 AM EST eCW1 ([facility]) [facility] [address] [place] [address] 06/05/2019 12:00:00 AM EST eCW1 ([facility]) [facility] [address] [place] [address] 05/29/2019 12:00:00 AM EST eCW1 ([facility]) [address] [address] 05/09/2019 12:00:00 AM EST eCW1 ([facility]) [facility] [address] [place] [address] 04/17/2019 12:00:00 AM EST eCW1 ([facility]) Medications Medication Brand Name Start Date Product Form Dose Route Admi nistrative Instructions Pharmacy Instructions Status Indications Reaction Description Data Source(s) Metformin HCL ER (Mod) Metformin HCL ER (Mod) 05/14/2020 12:00:00 AM EST ORAL active MEDENT ([facility]) NITROFURANTOIN, MACROCRYSTALS 25 MG / Ni trofurantoin, Monohydrate 75 MG Oral Capsule [Macrobid] Macrobid 100 MG Macrobid 100 MG 04/17/2020 12:00:00 AM EST active Macrobid 100 MG eCW1 ([facility]) NITROFURANTOIN, MACROCRYSTALS 25 MG / Ni trofurantoin, Monohydrate 75 MG Oral Capsule [Macrobid] Macrobid 100 MG Macrobid 100 MG 04/17/2020 12:00:00 AM EST active Macrobid 100 MG eCW1 ([facility]) NITROFURANTOIN, MACROCRYSTALS 25 MG / Ni trofurantoin, Monohydrate 75 MG Oral Capsule [Macrobid] Macrobid 100 MG Macrobid 100 MG 04/17/2020 12:00:00 AM EST active Macrobid 100 MG eCW1 ([facility]) NITROFURANTOIN, MACROCRYSTALS 25 MG / Ni trofurantoin, Monohydrate 75 MG Oral Capsule [Macrobid] Macrobid 100 MG Macrobid 100 MG 04/17/2020 12:00:00 AM EST active Macrobid 100 MG eCW1 ([facility]) Azithromycin 250 MG Oral Tablet Azithromycin 250 MG 03/03/2020 1 2:00:00 AM EST suspended Azithromycin 2 50 MG eCW1 ([facility]) Azithromycin 250 MG Oral Tablet Azithromycin 250 MG 03/03/2020 1 2:00:00 AM EST suspended Azithromycin 2 50 MG eCW1 ([facility]) Azithromycin 250 MG Oral Tablet Azithromycin 250 MG 03/03/2020 1 2:00:00 AM EST suspended Azithromycin 2 50 MG eCW1 ([facility]) Azithromycin 250 MG Oral Tablet Azithromycin 250 MG 03/03/2020 1 2:00:00 AM EST active Azithromycin 250 MG eCW1 ([facility]) Azithromycin 250 MG Oral Tablet Azithromycin 250 MG 03/03/2020 1 2:00:00 AM EST suspended Azithromycin 2 50 MG eCW1 ([facility]) Azithromycin 250 MG Oral Tablet Azithromycin 250 MG 03/03/2020 1 2:00:00 AM EST suspended Azithromycin 2 50 MG eCW1 ([facility]) Azithromycin 250 MG Oral Tablet Azithromycin 250 MG 03/03/2020 1 2:00:00 AM EST active Azithromycin 250 MG eCW1 ([facility]) Azithromycin 250 MG Oral Tablet Azithromycin 250 MG 03/03/2020 1 2:00:00 AM EST suspended Azithromycin 2 50 MG eCW1 ([facility]) Azithromycin 250 MG Oral Tablet Azithromycin 250 MG 03/03/2020 1 2:00:00 AM EST active Azithromycin 250 MG eCW1 ([facility]) Azithromycin 250 MG Oral Tablet Azithromycin 250 MG 03/03/2020 1 2:00:00 AM EST suspended Azithromycin 2 50 MG eCW1 ([facility]) Metformin hydrochloride 500 MG Oral Tablet Metformin HCL 11/20/2019 12:00:00 AM EDT ORAL completed MEDENT ([facility]) Esomeprazole 40 MG Delayed Release Oral Capsule Esomeprazole Magnesium 11/20/2019 12:00:00 AM EDT ORAL active MEDENT ([facility]) Sulfamethoxazole 800 MG / Trimethoprim 1 60 MG Oral Tablet [Bactrim] Bactrim DS 800-160 MG Bactrim DS 800-160 MG 10/28/2019 12:00:00 AM EDT 1.0 {table t} suspended Bactrim DS 800-160 MG eCW1 ( [facility]) Sulfamethoxazole 800 MG / Trimethoprim 1 60 MG Oral Tablet [Bactrim] Bactrim DS 800-160 MG Bactrim DS 800-160 MG 10/28/2019 12:00:00 AM EDT 1.0 {table t} suspended Bactrim DS 800-160 MG eCW1 ( [facility]) Sulfamethoxazole 800 MG / Trimethoprim 1 60 MG Oral Tablet [Bactrim] Bactrim DS 800-160 MG Bactrim DS 800-160 MG 10/28/2019 12:00:00 AM EDT 1.0 {table t} suspended Bactrim DS 800-160 MG eCW1 ( [facility]) Sulfamethoxazole 800 MG / Trimethoprim 1 60 MG Oral Tablet [Bactrim] Bactrim DS 800-160 MG Bactrim DS 800-160 MG 10/28/2019 12:00:00 AM EDT 1.0 {table t} active Bactrim DS 800-160 MG eCW1 ( [facility]) Sulfamethoxazole 800 MG / Trimethoprim 1 60 MG Oral Tablet [Bactrim] Bactrim DS 800-160 MG Bactrim DS 800-160 MG 10/28/2019 12:00:00 AM EDT 1.0 {table t} suspended Bactrim DS 800-160 MG eCW1 ( [facility]) Sulfamethoxazole 800 MG / Trimethoprim 1 60 MG Oral Tablet [Bactrim] Bactrim DS 800-160 MG Bactrim DS 800-160 MG 10/28/2019 12:00:00 AM EDT 1.0 {table t} suspended Bactrim DS 800-160 MG eCW1 ( [facility]) Sulfamethoxazole 800 MG / Trimethoprim 1 60 MG Oral Tablet [Bactrim] Bactrim DS 800-160 MG Bactrim DS 800-160 MG 10/28/2019 12:00:00 AM EDT 1.0 {table t} suspended Bactrim DS 800-160 MG eCW1 ( [facility]) Sulfamethoxazole 800 MG / Trimethoprim 1 60 MG Oral Tablet [Bactrim] Bactrim DS 800-160 MG Bactrim DS 800-160 MG 10/28/2019 12:00:00 AM EDT 1.0 {table t} suspended Bactrim DS 800-160 MG eCW1 ( [facility]) Sulfamethoxazole 800 MG / Trimethoprim 1 60 MG Oral Tablet [Bactrim] Bactrim DS 800-160 MG Bactrim DS 800-160 MG 10/28/2019 12:00:00 AM EDT 1.0 {table t} suspended Bactrim DS 800-160 MG eCW1 ( [facility]) Sulfamethoxazole 800 MG / Trimethoprim 1 60 MG Oral Tablet [Bactrim] Bactrim DS 800-160 MG Bactrim DS 800-160 MG 10/28/2019 12:00:00 AM EDT 1.0 {table t} suspended Bactrim DS 800-160 MG eCW1 ( [facility]) Sulfamethoxazole 800 MG / Trimethoprim 1 60 MG Oral Tablet [Bactrim] Bactrim DS 800-160 MG Bactrim DS 800-160 MG 10/28/2019 12:00:00 AM EDT 1.0 {table t} suspended Bactrim DS 800-160 MG eCW1 ( [facility]) Clindamycin 300 MG Oral Capsule Clindamycin HCl 300 MG Clind amycin HCl 300 MG 09/01/2019 12:00:00 AM EDT active 1 capsule eCW1 ([facility]) benzonatate 100 MG Oral Capsule [Tessalon Perles] April harvey Perles 100 MG Tessalon Perles 100 MG 07/19/2019 12:00:00 AM EDT suspended 1 capsule as needed eCW1 ([facility]) Prednisone 20 MG Oral Tablet PredniSONE 20 MG PredniSONE 20 MG 07/19/2019 12:00:00 AM EDT active 1 tablet eCW1 ([facility]) benzonatate 100 MG Oral Capsule [Tessalon Perles] April harvey Perles 100 MG Tessalon Perles 100 MG 07/19/2019 12:00:00 AM EDT active 1 capsule as needed eCW1 ([facility]) 200 ACTUAT Albuterol 0.09 MG/ACTUAT Mete red Dose Inhaler [ProAir] ProAir HFA 108 (90 Base) MCG/ACT ProAir HFA 108 (90 Base) MCG/ACT 07/19/2019 12:00:00 AM EDT 2.0 {puffs_as_needed} suspended ProAir HFA 108 (90 Base) MCG/ACT eCW1 ([facility]) 200 ACTUAT Albuterol 0.09 MG/ACTUAT Mete red Dose Inhaler [ProAir] ProAir HFA 108 (90 Base) MCG/ACT ProAir HFA 108 (90 Base) MCG/ACT 07/19/2019 12:00:00 AM EDT 2.0 {puffs_as_needed} suspended ProAir HFA 108 (90 Base) MCG/ACT eCW1 ([facility]) 200 ACTUAT Albuterol 0.09 MG/ACTUAT Mete red Dose Inhaler [ProAir] ProAir HFA 108 (90 Base) MCG/ACT ProAir HFA 108 (90 Base) MCG/ACT 07/19/2019 12:00:00 AM EDT 2.0 {puffs_as_needed} suspended ProAir HFA 108 (90 Base) MCG/ACT eCW1 ([facility]) Prednisone 20 MG Oral Tablet PredniSONE 20 MG PredniSONE 20 MG 07/19/2019 12:00:00 AM EDT suspended 1 tab let eCW1 ([facility]) 200 ACTUAT Albuterol 0.09 MG/ACTUAT Mete red Dose Inhaler [ProAir] ProAir HFA 108 (90 Base) MCG/ACT ProAir HFA 108 (90 Base) MCG/ACT 07/19/2019 12:00:00 AM EDT 2.0 {puffs_as_needed} active Pr oAir HFA 108 (90 Base) MCG/ACT eCW1 ([facility]) 200 ACTUAT Albuterol 0.09 MG/ACTUAT Mete red Dose Inhaler [ProAir] ProAir HFA 108 (90 Base) MCG/ACT ProAir HFA 108 (90 Base) MCG/ACT 07/19/2019 12:00:00 AM EDT 2.0 {puffs_as_needed} suspended ProAir HFA 108 (90 Base) MCG/ACT eCW1 ([facility]) 200 ACTUAT Albuterol 0.09 MG/ACTUAT Mete red Dose Inhaler [ProAir] ProAir HFA 108 (90 Base) MCG/ACT ProAir HFA 108 (90 Base) MCG/ACT 07/19/2019 12:00:00 AM EDT active 2 puffs as neede d eCW1 ([facility]) 200 ACTUAT Albuterol 0.09 MG/ACTUAT Mete red Dose Inhaler [ProAir] ProAir HFA 108 (90 Base) MCG/ACT ProAir HFA 108 (90 Base) MCG/ACT 07/19/2019 12:00:00 AM EDT 2.0 {puffs_as_needed} suspended ProAir HFA 108 (90 Base) MCG/ACT eCW1 ([facility]) 200 ACTUAT Albuterol 0.09 MG/ACTUAT Mete red Dose Inhaler [ProAir] ProAir HFA 108 (90 Base) MCG/ACT ProAir HFA 108 (90 Base) MCG/ACT 07/19/2019 12:00:00 AM EDT active 2 puffs as neede d eCW1 ([facility]) benzonatate 100 MG Oral Capsule [Tessalon Perles] April harvey Perles 100 MG Tessalon Perles 100 MG 07/19/2019 12:00:00 AM EDT active 1 capsule as needed eCW1 ([facility]) 200 ACTUAT Albuterol 0.09 MG/ACTUAT Mete red Dose Inhaler [ProAir] ProAir HFA 108 (90 Base) MCG/ACT ProAir HFA 108 (90 Base) MCG/ACT 07/19/2019 12:00:00 AM EDT 2.0 {puffs_as_needed} suspended ProAir HFA 108 (90 Base) MCG/ACT eCW1 ([facility]) Prednisone 20 MG Oral Tablet PredniSONE 20 MG PredniSONE 20 MG 07/19/2019 12:00:00 AM EDT active 1 tablet eCW1 ([facility]) 200 ACTUAT Albuterol 0.09 MG/ACTUAT Mete red Dose Inhaler [ProAir] ProAir HFA 108 (90 Base) MCG/ACT ProAir HFA 108 (90 Base) MCG/ACT 07/19/2019 12:00:00 AM EDT 2.0 {puffs_as_needed} suspended ProAir HFA 108 (90 Base) MCG/ACT eCW1 ([facility]) 200 ACTUAT Albuterol 0.09 MG/ACTUAT Mete red Dose Inhaler [ProAir] ProAir HFA 108 (90 Base) MCG/ACT ProAir HFA 108 (90 Base) MCG/ACT 07/19/2019 12:00:00 AM EDT active 2 puffs as neede d eCW1 ([facility]) 200 ACTUAT Albuterol 0.09 MG/ACTUAT Mete red Dose Inhaler [ProAir] ProAir HFA 108 (90 Base) MCG/ACT ProAir HFA 108 (90 Base) MCG/ACT 07/19/2019 12:00:00 AM EDT 2.0 {puffs_as_needed} suspended ProAir HFA 108 (90 Base) MCG/ACT eCW1 ([facility]) 200 ACTUAT Albuterol 0.09 MG/ACTUAT Mete red Dose Inhaler [ProAir] ProAir HFA 108 (90 Base) MCG/ACT ProAir HFA 108 (90 Base) MCG/ACT 07/19/2019 12:00:00 AM EDT 2.0 {puffs_as_needed} suspended ProAir HFA 108 (90 Base) MCG/ACT eCW1 ([facility]) 200 ACTUAT Albuterol 0.09 MG/ACTUAT Mete red Dose Inhaler [ProAir] ProAir HFA 108 (90 Base) MCG/ACT ProAir HFA 108 (90 Base) MCG/ACT 07/19/2019 12:00:00 AM EDT active 2 puffs as neede d eCW1 ([facility]) 200 ACTUAT Albuterol 0.09 MG/ACTUAT Mete red Dose Inhaler [ProAir] ProAir HFA 108 (90 Base) MCG/ACT ProAir HFA 108 (90 Base) MCG/ACT 07/19/2019 12:00:00 AM EDT 2.0 {puffs_as_needed} suspended ProAir HFA 108 (90 Base) MCG/ACT eCW1 ([facility]) Levofloxacin 500 MG Oral Tablet Levofloxacin 500 MG 06/05/2019 1 2:00:00 AM EST active 1 tablet eCW1 ([facility]) Insurance Providers Payer name Policy type / Coverage type Policy ID Covered democrat ID Covered democrat's relationship to ibarra Policy Ibarra Plan Information [facility] FEDERAL EMPLOYEE PROGRAM [id number] SP [id number] [facility] B [id number] S [id number] [facility] [employer]EE PROGRAM [id number] SP [id number] ANSI-Commercial [id number] ANSI-Commercial [id number] ANSI-Commercial [id number] ANSI-Commercial [id number] ANSI-Commercial [id number] ANSI-Commercial [id number] [employer] Federal Commercial [id number] Self [id number] [employer] Commercial [id number] Self [id number] ANSI-Commercial [id number] ANSI-Commercial [id number] ANSI-Commercial [id number] ANSI-Commercial [id number] ANSI-Commercial [id number] ANSI-Commercial [id number] ANSI-Commercial [id number] ANSI-Commercial [id number] ANSI-Commercial [id number] BCBS [facility] Commercial [id number] Self [id number] BCBS [facility] Commercial [id number] Self [id number] ANSI-Commercial [id number] ANSI-Commercial [id number] ANSI-Commercial [id number] ANSI-Commercial [id number] ANSI-Commercial [id number] ANSI-Commercial [id number] [facility] FED[employer]AL EM[employer]OYEE PROGRAM [id number] SP [id number] [facility] FED[employer]AL [employer]OYEE PROGRAM [id number] SP [id number] [employer] Part B [id number] Self [id number] [facility] Health Maintenance Organization (HMO) [id number] Self [id number] [employer] [id number] SP [id number] [employer] [id number] SP [id number] [employer] FEDERAL [id number] SP [id number] [employer]ig[employer] Part B [id number] Self R [id number] [employer] FED[employer]AL [id number] SP [id number] [facility] Federal Commercial [id number] Self [id number] [facility] Health Maintenance Organization (HMO) [id number] Self [id number] [employer] Commercial [id number] Self [id number] MIGUEL [facility] [id number] Dorothy [id number] [facility] PI PI JOSÉ MIGUEL [facility] FEDERAL [id number] SP [id number] Blue [facility] Federal Medigap Part B Self José Miguel [facility] Health Maintenance Organization (HMO) Self JOSÉ MIGUEL [facility] FEDERAL [id number] SP [id number] [employer] [place] [employer] FED[employer]AL [id number] SP [id number] [employer] [place] [employer] [id number] SP [id number] Problems, Conditions, and Diagnoses Code Display Name Description Problem Type Effective Dates Data Source(s) 342694886 Electrocardiogram abnormal Electrocardiogram abnormal Problem 05/15/2020 12:00:00 AM EST [facility] ([facility]) [id number] Dyspnea Dyspnea Problem 05/15/2020 12:00:00 AM ES T MEDENT ([facility]) F43.21 [id number] Adjustment disorder with depressed mood P justinalem 03/03/2020 12:00:00 AM EST eCW1 ([facility]) E11.9 [id number] Type 2 diabetes cindy itus without complication, without long-term current use of insulin Problem 08/16/2019 12:00:00 AM EDT eCW1 ([facility]) E11.9 [id number] Type 2 diabetes cindy itus without complication, without long-term current use of insulin Problem 08/16/2019 12:00:00 AM EDT eCW1 ([facility]) J32.9 [id number] Sinusitis, unspecified chronicity, unspec ified location Problem 08/02/2019 12:00:00 AM EDT eCW1 ([facility]) J32.9 [id number] Sinusitis, unspecified chronicity, unspec ified location Problem 08/02/2019 12:00:00 AM EDT eCW1 ([facility]) K21.9 [id number] Chronic GERD Problem 04/17/2019 12:00:00 AM EST eCW1 ([facility]) Surgeries/Procedures Procedure Description Date Indications Data Source(s) ECHO TTHRC R-T 2D W/WOM-MODE COMPL SPEC&COLR DOP 05/27 12:00:00 AM EST MEDENT ([facility]) ECG ROUTINE ECG W/LEAST 12 LDS W/I&R 05/15/2020 12:00: 00 AM EST MEDENT ([facility]) uro PVR (Post Voiding Residual) Bladder Scan 12:00:00 AM EST eCW1 ([facility]) ECG ROUTINE ECG W/LEAST 12 LDS W/I&R 11/21/2019 12:00: 00 AM EDT MEDENT ([facility]) TeleMedicine Est. Pt. Level 3 08/16/2019 12:00:00 AM E DT eCW1 ([facility]) Influenza A+B 07/19/2019 12:00:00 AM EDT eCW1 ([facility]) PSYTX W PT 45 MINUTES 06/06/2019 12:00:00 AM EST eCW1 ([facility]) Results ID Date Data Source [id number] 05/19/2020 09:06:00 AM EST MEDENT ([facility]) Name Value Range Interpretation Code Description Data Victorina rce(s) Supporting Document(s) Triglycerides 186 MEDENT ([facility]) HDL 70 MEDENT ([facility] Cholesterol in LDL [Mass/volume] in Serum or Plasma by calculation 37 MEDENT ([facility]) Cholesterol 144 MEDENT ([facility]) Chol/HDL Ratio 2.057 MEDENT ([facility]) ID Date Data Source [id number] 05/19/2020 09:06:00 AM EST MEDENT ([facility]) Name Value Range Interpretation Code Description Data Victorina rce(s) Supporting Document(s) Alanine aminotransferase [Enzymatic activity/volume] in Serum or Pl asma 34 MEDENT ([facility]) Calcium [Mass/volume] in Serum or Plasma 10.1 MEDENT ([facility]) Albumin [Mass/volume] in Serum or Plasma 4.2 MEDENT ([facility]) Alkaline phosphatase [Enzymatic activity/volume] in Serum or Plasma 9 7 MEDENT ([facility]) Carbon dioxide, total [Moles/volume] in Serum or Plasma 29 MEDENT ([facility]) Chloride [Moles/volume] in Serum or Plasma 105 MEDENT ([facility]) Sodium 140 MED[facility] ([facility] Protein [Mass/volume] in Serum or Plasma 7.6 MEDENT ([facility]) Potassium [Moles/volume] in Serum or Plasma 4.6 MEDENT ([facility]) Aspartate aminotransferase [Enzymatic activity/volume] in Serum or Plasma 19 MEDENT ([facility]) Glucose 109 70-100 MED[facility] ([facility] Urea nitrogen [Mass/volume] in Serum or Plasma 11 MEDENT ([facility]) Creatinine For GFR 0.97 MEDENT ([facility]) ID Date Data Source [id number] 05/19/2020 09:06:00 AM EST MEDENT ([facility]) Name Value Range Interpretation Code Description Data Victorina rce(s) Supporting Document(s) Red Blood Count 4.85 4.00-5.40 MEDENT ([facility]) White Blood Count 7.2 4.0-10.0 MED[facility] ([facility]) Platelets 271 150-450 MED[facility] ([facility]) Hemoglobin 15.2 MEDENT ([facility]) Hematocrit 47.3 MEDENT ([facility]) ID Date Data Source URINE CULTURE 04/15/2020 12:00:00 AM EST eCW1 ([facility]) Name Value Range Interpretation Code Description Data Victorina rce(s) Supporting Document(s) Laboratory studies (set) URINE CULTU RE eCW1 ([facility]) ID Date Data Source UA URINALYSIS 04/15/2020 12:00:00 AM EST eCW1 ([facility]) Name Value Range Interpretation Code Description Data Victorina rce(s) Supporting Document(s) UA URINALYSIS eCW1 ([facility]) ID Date Data Source [id number] 03/04/2020 11:24:00 AM EST MEDENT ([facility]) Name Value Range Interpretation Code Description Data Victorina rce(s) Supporting Document(s) Hemoglobin A1c/Hemoglobin.total in Blood 6.0 MEDENT ([facility]) ID Date Data Source [id number] 11/21/2019 11:18:00 AM EDT MEDENT ([facility]) Name Value Range Interpretation Code Description Data Victorina rce(s) Supporting Document(s) Hemoglobin A1c/Hemoglobin.total in Blood 6.0 MEDENT ([facility]) ID Date Data Source [id number] 11/21/2019 11:18:00 AM EDT MEDENT ([facility]) Name Value Range Interpretation Code Description Data Victorina rce(s) Supporting Document(s) Calcium [Mass/volume] in Serum or Plasma 9.3 MEDENT ([facility]) Sodium 137 MEDENT ([facility]) Chloride [Moles/volume] in Serum or Plasma 105 MEDENT ([facility]) Carbon dioxide, total [Moles/volume] in Serum or Plasma 31 MEDENT ([facility]) Glucose 95 70-100 MEDENT ([facility]) Potassium [Moles/volume] in Serum or Plasma 4.9 MEDENT ([facility]) Blood Urea Nitrogen 11 7-18 MEDENT ([facility]) Creatinine 0.86 0.55-1.30 MEDENT ([facility]) Glomerular filtration rate/1.73 sq M.pre dicted [Volume Rate/Area] in Serum or Plasma by Creatinine-based formula (MDRD) Laboratory test result MEDENT ([facility]) ID Date Data Source [id number] 08/15/2019 04:21:00 PM EDT MEDENT ([facility]) Name Value Range Interpretation Code Description Data Victorina rce(s) Supporting Document(s) Hemoglobin A1c/Hemoglobin.total in Blood 6.5 MEDENT ([facility]) ID Date Data Source [id number] 08/15/2019 04:21:00 PM EDT MEDENT ([facility]) Name Value Range Interpretation Code Description Data Victorina rce(s) Supporting Document(s) Glucose 96 70-100 [facility] Blood Urea Nitrogen 15 7-18 MED[facility] ([facility]) Sodium 142 136-145 MED[facility] ([facility]) Creatinine 0.86 0.55-1.30 MED[facility] ([facility]) Potassium 4.3 3.5-5.1 [facility] Carbon Dioxide 31 21-32 MED[facility] ([facility]) Calcium 9.2 8.2-9.6 [facility] Chloride 107 98-107 [facility] Glomerular filtration rate/1.73 sq M.pre dicted [Volume Rate/Area] in Serum or Plasma by Creatinine-based formula (MDRD) Laboratory test result MEDENT ([facility]) ID Date Data Source [id number] 07/19/2019 01:25:00 PM EDT [facility] Name Value Range Interpretation Code Description Data Victorina rce(s) Supporting Document(s) SARS CORONAVIRUS 2 RNA [facility] This lab was ordered by [facility] and reported by [facility]. ID Date Data Source RESPIRATORY PANEL 07/19/2019 12:00:00 AM EDT eCW1 ([facility]) Name Value Range Interpretation Code Description Data Victorina rce(s) Supporting Document(s) This respiratory PCR panel detects Influenza A H1, H3 and RESPIRATORY PANEL eCW1 ([facility]) Procedure Social History Code Duration Value Status Description Data Source(s ) Smoking 05/15/2020 12:00:00 AM EST Patient is a former smoker completed Patient is a former smoker MEDENT ([facility]) Smoking 04/15/2020 12:00:00 AM EST Former Smoker completed Former Smoker eCW1 ([facility]) Smoking 04/15/2020 12:00:00 AM EST Former Smoker completed Former Smoker eCW1 ([facility]) Smoking 04/15/2020 12:00:00 AM EST Former Smoker completed Former Smoker eCW1 ([facility]) Smoking 04/15/2020 12:00:00 AM EST Former Smoker completed Former Smoker eCW1 ([facility]) Smoking 04/15/2020 12:00:00 AM EST Former Smoker completed Former Smoker eCW1 ([facility]) Smoking 04/01/2020 12:00:00 AM EST Former Smoker completed Former Smoker eCW1 ([facility]) Smoking 04/01/2020 12:00:00 AM EST Former Smoker completed Former Smoker eCW1 ([facility]) Smoking 03/03/2020 12:00:00 AM EST Former Smoker completed Former Smoker eCW1 ([facility]) Smoking 03/03/2020 12:00:00 AM EST Former Smoker completed Former Smoker eCW1 ([facility]) Smoking 03/03/2020 12:00:00 AM EST Former Smoker completed Former Smoker eCW1 ([facility]) Smoking 10/28/2019 12:00:00 AM EDT Former Smoker completed Former Smoker eCW1 ([facility]) Vital Signs ID Date Data Source UNK Name Value Range Interpretation Code Description Data Source(s) Diastolic blood pressure--sitting 78 mm[Hg] 78 mm[Hg] MEDENT ([facility]) large cuff, Ra Systolic blood pressure--sitting 124 mm[Hg] 124 mm[Hg] MEDENT ([facility]) large cuff, Ra Heart rate 67 /min 67 /min MED[facility] ([facility]) Body mass index (BMI) [Ratio] 39.3 kg/m2 39.3 k g/m2 MEDENT ([facility]) Body height 65 [in_i] 65 [in_i] MEDENT ([facility]) 5'5" Body weight 236.00 [lb_av] 236.00 [lb_av] MEDEN T ([facility]) Diastolic blood pressure 74 mm[Hg] 74 mm[Hg] eCW1 ([facility]) Systolic blood pressure 124 mm[Hg] 124 mm[Hg] e CW1 ([facility]) Body temperature 98.1 [degF] 98.1 [degF] eCW1 ( [facility]) Respiratory rate 18 /min 18 /min eCW1 ([facility]) Heart rate 72 /min 72 /min eCW1 ([facility]) Body mass index (BMI) [Ratio] 39.73 kg/m2 39.73 kg/m2 eCW1 ([facility]) Body height 65 [in_i] 65 [in_i] eCW1 ([facility]) Body weight 238.8 [lb_av] 238.8 [lb_av] eCW1 ([facility]) Diastolic blood pressure 75 mm[Hg] 75 mm[Hg] eCW1 ([facility]) Systolic blood pressure 126 mm[Hg] 126 mm[Hg] e CW1 ([facility]) Body temperature 98.23 [degF] 98.23 [degF] eCW1 ([facility]) Respiratory rate 17 /min 17 /min eCW1 ([facility]) Heart rate 77 /min 77 /min eCW1 ([facility]) Body mass index (BMI) [Ratio] 39.40 kg/m2 39.40 kg/m2 eCW1 ([facility]) Body height 65 [in_i] 65 [in_i] eCW1 ([facility]) Body weight 236.8 [lb_av] 236.8 [lb_av] eCW1 ([facility]) Diastolic blood pressure 74 mm[Hg] 74 mm[Hg] eCW1 ([facility]) Systolic blood pressure 140 mm[Hg] 140 mm[Hg] e CW1 ([facility]) Body temperature 97.2 [degF] 97.2 [degF] eCW1 ( [facility]) Respiratory rate 17 /min 17 /min eCW1 ([facility]) Heart rate 79 /min 79 /min eCW1 ([facility]) Body mass index (BMI) [Ratio] 40.00 kg/m2 40.00 kg/m2 W1 ([facility]) Body height 65 [in_i] 65 [in_i] eCW1 ([facility]) Body weight 240.4 [lb_av] 240.4 [lb_av] eCW1 ([facility]) Diastolic blood pressure--sitting 78 mm[Hg] 78 mm[Hg] MEDENT ([facility]) large cuff, Ra Systolic blood pressure--sitting 116 mm[Hg] 116 mm[Hg] MEDENT ([facility]) large cuff, Ra Heart rate 72 /min 72 /min MED[facility] ([facility]) Body mass index (BMI) [Ratio] 38.8 kg/m2 38.8 k g/m2 MEDENT ([facility]) Body height 65 [in_i] 65 [in_i] MEDENT ([facility]) 5'5" Body weight 233.00 [lb_av] 233.00 [lb_av] MEDEN T ([facility]) Diastolic blood pressure 86 mm[Hg] 86 mm[Hg] eCW1 ([facility]) Systolic blood pressure 125 mm[Hg] 125 mm[Hg] e CW1 ([facility]) Body temperature 99.2 [degF] 99.2 [degF] eCW1 ( [facility]) Respiratory rate 20 /min 20 /min eCW1 ([facility]) Heart rate 102 /min 102 /min eCW1 ([facility]) Body mass index (BMI) [Ratio] 39.27 kg/m2 39.27 kg/m2 eCW1 ([facility]) Body height 65 [in_us] 65 [in_us] eCW1 ([facility]) Body weight Measured 236 [lb_av] 236 [lb_av] eC W1 ([facility]) Diastolic blood pressure 88 mm[Hg] 88 mm[Hg] eCW1 ([facility]) Systolic blood pressure 130 mm[Hg] 130 mm[Hg] e CW1 ([facility]) Body temperature [degF] eCW1 ([facility]) Respiratory rate 28 /min 28 /min eCW1 ([facility]) Heart rate 97 /min 97 /min eCW1 ([facility]) Body mass index (BMI) [Ratio] 39.43 kg/m2 39.43 kg/m2 eCW1 ([facility]) Body height 65 [in_us] 65 [in_us] eCW1 ([facility]) Body weight Measured 237 [lb_av] 237 [lb_av] eC W1 ([facility]) Diastolic blood pressure 60 mm[Hg] 60 mm[Hg] eCW1 ([facility]) Systolic blood pressure 115 mm[Hg] 115 mm[Hg] e CW1 ([facility]) Body temperature 98.8 [degF] 98.8 [degF] eCW1 ( [facility]) Respiratory rate 18 /min 18 /min eCW1 ([facility]) Heart rate 78 /min 78 /min eCW1 ([facility]) Body mass index (BMI) [Ratio] 40.60 kg/m2 40.60 kg/m2 eCW1 ([facility]) Body height 65 [in_us] 65 [in_us] eCW1 ([facility]) Body weight Measured 244 [lb_av] 244 [lb_av] eC W1 ([facility]) Diastolic blood pressure 87 mm[Hg] 87 mm[Hg] eCW1 ([facility]) Systolic blood pressure 167 mm[Hg] 167 mm[Hg] e CW1 ([facility]) Body temperature 96.7 [degF] 96.7 [degF] eCW1 ( [facility]) Respiratory rate 17 /min 17 /min eCW1 ([facility]) Heart rate 75 /min 75 /min eCW1 ([facility]) Body mass index (BMI) [Ratio] 39.97 kg/m2 39.97 kg/m2 eCW1 ([facility]) Body height 65 [in_us] 65 [in_us] eCW1 ([facility]) Body weight Measured 240.2 [lb_av] 240.2 [lb_av ] eCW1 ([facility]) Patient Treatment Plan of Care Planned Activity Planned Date Details Description Data Source (s) NITROFURANTOIN, MACROCRYSTALS 25 MG / Ni trofurantoin, Monohydrate 75 MG Oral Capsule [Macrobid] 04/17/2020 12:00:00 AM EST eC W1 ([facility]) NITROFURANTOIN, MACROCRYSTALS 25 MG / Ni trofurantoin, Monohydrate 75 MG Oral Capsule [Macrobid] 04/17/2020 12:00:00 AM EST eC W1 ([facility]) NITROFURANTOIN, MACROCRYSTALS 25 MG / Ni trofurantoin, Monohydrate 75 MG Oral Capsule [Macrobid] 04/17/2020 12:00:00 AM EST eC W1 ([facility]) NITROFURANTOIN, MACROCRYSTALS 25 MG / Ni trofurantoin, Monohydrate 75 MG Oral Capsule [Macrobid] 04/17/2020 12:00:00 AM EST eC W1 ([facility]) Azithromycin 250 MG Oral Tablet 03/03/2020 12:00:00 AM EST eCW1 ([facility]) Azithromycin 250 MG Oral Tablet 03/03/2020 12:00:00 AM EST eCW1 ([facility]) Azithromycin 250 MG Oral Tablet 03/03/2020 12:00:00 AM EST eCW1 ([facility]) Sulfamethoxazole 800 MG / Trimethoprim 160 MG Oral Tab let [Bactrim] 10/28/2019 12:00:00 AM EDT eCW1 ([facility]) Clindamycin 300 MG Oral Capsule 09/01/2019 12:00:00 AM EDT eCW1 ([facility]) benzonatate 100 MG Oral Capsule [Tessalon Perles] 07/19/2019 12: 00:00 AM EDT eCW1 ([facility]) 200 ACTUAT Albuterol 0.09 MG/ACTUAT Metered Dose Inhal er [ProAir] 07/19/2019 12:00:00 AM EDT eCW1 ([facility]) Prednisone 20 MG Oral Tablet 07/19/2019 12:00:00 AM EDT eCW1 ([facility]) Levofloxacin 500 MG Oral Tablet 06/05/2019 12:00:00 AM EST eCW1 ([facility])
--- NOTE | 2020-06-13 13:16 | REP ---
INDICATION: hematuria COMPARISON: Comparison CT study 28 February 2015.. TECHNIQUE: Helical scanning is acquired in 4 mm axial images were reformatted. Coronal and sagittal MPR images were generated and reviewed. FINDINGS: Preliminary digital brick chimney supervisor radiograph demonstrates an unremarkable bowel gas pattern. On axial CT images, the lung bases are clear. The liver is normal in size homogeneous in texture. Spleen is unremarkable. There are 2 accessory splenule is. Normal adrenal glands are observed. No abnormality is noted in the gallbladder or within the pancreas. There is no evidence of hydronephrosis or intrarenal calculus in either kidney. Urinary bladder appears intact. No bladder calculus or ureteral stone is seen. Uterus is surgically absent. No ovarian abnormality is seen. No pelvic mass or adenopathy is seen. Normal caliber aorta is noted. There is a mild edematous appearance to the small bowel mesenteric fat with a few stable normal size mesenteric lymph nodes. These findings are unchanged may be related to mild or previous mesenteric panniculitis. Small and large bowel loops are unremarkable. No abdominal wall defect is seen. Bone window settings show no bony destructive lesion. IMPRESSION: No acute intra-abdominal or pelvic abnormality. No urinary tract calculus or hydronephrosis seen. The appendix is not seen but there is no inflammatory change in the right lower quadrant. <Electronically signed by Chet Sharif > 06/13/20 [id number]
[2020-06-13 13:40] LABS: BASO # 0.1 10^3/uL (0.0-0.2); BASO % 0.6 % (0.0-1.0); EOS # 0.2 10^3/uL (0.0-0.5); EOS % 1.9 % (0.0-3.0); HEMATOCRIT 45.3 % (36.0-47.0); HEMOGLOBIN 15.2 g/dl (12.0-15.5); LYMPH # 2.1 10^3/uL (1.5-5.0); LYMPH % 16.9 % (24.0-44.0); MEAN CORPUSCULAR HEMOGLOBIN 31.2 pg (27.0-33.0); MEAN CORPUSCULAR HGB CONC 33.6 g/dl (32.0-36.5); MONO # 0.8 10^3/uL (0.0-0.8); MONO % 6.3 % (2.0-8.0); NEUTROPHILS # 9.1 10^3/uL (1.5-8.5); NEUTROPHILS % 73.9 % (36.0-66.0); PLATELET COUNT, AUTOMATED 229 10^3/uL (150-450); RED BLOOD COUNT 4.87 10^6/uL (4.00-5.40); WHITE BLOOD COUNT 12.3 10^3/uL (4.0-10.0)
[2020-06-13 14:06] LABS: BLOOD UREA NITROGEN 15 MG/DL (7-18); CALCIUM LEVEL 9.6 MG/DL (8.8-10.2); CARBON DIOXIDE LEVEL 30 MEQ/L (21-32); CHLORIDE LEVEL 102 MEQ/L (98-107); CREATININE FOR GFR 0.89 MG/DL (0.55-1.30); GLOMERULAR FILTRATION RATE > 60.0 (>45); GLUCOSE, FASTING 96 MG/DL (70-100); SODIUM LEVEL 139 MEQ/L (136-145)
[2020-06-13] MEDS ORDERED: CIPR-249 PO (14:13)
[2020-06-13 14:35] VITALS: BP 125/65
== END 2020-06-13 14:39 | disposition home or self-care (01) ==
LOC: M ED 12:11
DX: N30.91 Cystitis, unspecified with hematuria (principal); K21.9 Gastro-esophageal reflux disease without esophagitis; G47.33 Obstructive sleep apnea (adult) (pediatric); F41.9 Anxiety disorder, unspecified; Z95.5 Presence of coronary angioplasty implant and graft; Z88.0 Allergy status to penicillin; Z88.1 Allergy status to other antibiotic agents; Z88.8 Allergy status to other drugs, medicaments and biological substances; Z79.899 Other long term (current) drug therapy; Z79.82 Long term (current) use of aspirin

== ENCOUNTER → 2020-06-13 | Outpatient (REF) | payer BC ==
[~2020-06-13] MED LIST changes: +CIPR-249 PO
[2020-06-13 13:58] LABS: APPEARANCE, URINE MANUAL TURBID (CLEAR); COLOR, URINE MANUAL RED (YELLOW)
[2020-06-13 13:59] LABS: GLUCOSE, URINE (UA) MANUAL OBSCURED mg/dL (NEGATIVE); KETONE, URINE MANUAL OBSCURED mg/dL (NEGATIVE); PH,URINE MAN OBSCURED UNITS (5.0 - 7.0); PROTEIN, URINE MANUAL OBSCURED mg/dL (NEGATIVE); SPECIFIC GRAVITY,URINE MANUAL 1.012 (1.002-1.035); UROBILINOGEN, URINE MANUAL OBSCURED mg/dl (NORMAL)
[2020-06-13 14:00] LABS: BILIRUBIN, URINE MANUAL OBSCURED (NEGATIVE); BLOOD URINE MANUAL OBSCURED (NEGATIVE); LEUKOCYTE ESTERASE, URINE MAN OBSCURED (NEGATIVE); NITRITE, URINE MANUAL OBSCURED (NEGATIVE)
[2020-06-13 14:14] LABS: RBC, URINE TNTC /hpf (0-3); TRANSITIONAL EPI CELLS, URINE LARGE AMOUNT /hpf; WBC, URINE 15-20 /hpf (0-3)
== END ==
LOC: M SMT 13:38
PROVIDERS: ATTEND Nurse Practitioner Women's Health
DX: R30.0 Dysuria (principal)

== ENCOUNTER → 2020-06-24 | Outpatient (REF) | payer BC ==
[~2020-06-24] MED LIST changes: +CIPR-249 PO
[2020-06-24 13:05] LABS: APPEARANCE, URINE CLEAR (CLEAR); BACTERIA, URINE AUTO NEGATIVE (NEGATIVE); BILIRUBIN, URINE AUTO NEGATIVE (NEGATIVE); BLOOD, URINE BLOOD NEGATIVE (NEGATIVE); COLOR, URINE YELLOW (YELLOW); GLUCOSE, URINE (UA) AUTO NEGATIVE (NEGATIVE); KETONE, URINE AUTO NEGATIVE (NEGATIVE); LEUKOCYTE ESTERASE, URINE AUTO NEGATIVE (NEGATIVE); MUCUS, URINE SMALL (NEGATIVE); NITRITE, URINE AUTO NEGATIVE (NEGATIVE); PROTEIN, URINE AUTO NEGATIVE (NEGATIVE); RBC, URINE AUTO 0 /HPF (0-3); SPECIFIC GRAVITY URINE AUTO 1.012 (1.002-1.035); SQUAMOUS EPITHELIAL CELL UR AU 0 /HPF (0-6); UROBILINOGEN, URINE AUTO 0.2 mg/dL (0.0-2.0); WBC, URINE AUTO 0 /HPF (0-3)
== END ==
LOC: M SMT 12:08
PROVIDERS: ATTEND Urology
DX: R35.0 Frequency of micturition (principal); N39.0 Urinary tract infection, site not specified

== ENCOUNTER → 2020-07-03 | Outpatient (CLI) | payer BC ==
[2020-07-03 12:17] LABS: BASO # 0.1 10^3/uL (0.0-0.2); BASO % 1.5 % (0.0-1.0); EOS # 0.3 10^3/uL (0.0-0.5); EOS % 3.8 % (0.0-3.0); HEMATOCRIT 44.6 % (36.0-47.0); HEMOGLOBIN 14.1 g/dl (12.0-15.5); LYMPH # 2.5 10^3/uL (1.5-5.0); LYMPH % 33.9 % (24.0-44.0); MEAN CORPUSCULAR HEMOGLOBIN 30.3 pg (27.0-33.0); MEAN CORPUSCULAR HGB CONC 31.6 g/dl (32.0-36.5); MEAN CORPUSCULAR VOLUME 95.7 fl (80.0-96.0); MONO # 0.6 10^3/uL (0.0-0.8); MONO % 7.9 % (2.0-8.0); NEUTROPHILS # 3.9 10^3/uL (1.5-8.5); NEUTROPHILS % 52.5 % (36.0-66.0); PLATELET COUNT, AUTOMATED 268 10^3/uL (150-450); RED BLOOD COUNT 4.66 10^6/uL (4.00-5.40); WHITE BLOOD COUNT 7.4 10^3/uL (4.0-10.0)
[2020-07-03 12:48] LABS: ALBUMIN 4.4 GM/DL (3.2-5.2); ALT/SGPT 30 U/L (12-78); BILIRUBIN,TOTAL 0.4 MG/DL (0.2-1.0); BLOOD UREA NITROGEN 17 MG/DL (7-18); CALCIUM LEVEL 9.7 MG/DL (8.8-10.2); CARBON DIOXIDE LEVEL 28 MEQ/L (21-32); CHLORIDE LEVEL 104 MEQ/L (98-107); CHOLESTEROL LEVEL 127 MG/DL (<200); CHOLESTEROL RISK RATIO 1.867 (<5); CREATININE FOR GFR 0.97 MG/DL (0.55-1.30); FREE T4 0.96 NG/DL (0.76-1.46); GLOMERULAR FILTRATION RATE > 60.0 (>45); GLUCOSE, FASTING 121 MG/DL (70-100); HDL CHOLESTEROL 68 MG/DL (>40); LDL CHOLESTEROL 35 MG/DL (<100); NON-HDL-C 59 MG/DL; POTASSIUM SERUM 4.7 MEQ/L (3.5-5.1); SODIUM LEVEL 138 MEQ/L (136-145); TOTAL 25(OH) VITAMIN D 30.7 NG/ML (30.0-100.0); TOTAL PROTEIN 7.7 GM/DL (6.4-8.2); TRIGLYCERIDES LEVEL 120 MG/DL (<150)
== END ==
LOC: M WUC 10:09
PROVIDERS: ATTEND Nurse Practitioner Family
DX: R73.01 Impaired fasting glucose (principal); I10 Essential (primary) hypertension; E03.9 Hypothyroidism, unspecified; E78.2 Mixed hyperlipidemia; E55.9 Vitamin D deficiency, unspecified

== ENCOUNTER → 2020-07-14 | Outpatient (CLI) | payer BC ==
--- NOTE | 2020-07-14 12:01 | REPMRS ---
Patient History The patient states she has not had a clinical breast exam in over a year. Family history of breast cancer at age 50 or over in maternal grandmother, ovarian cancer in mother, breast cancer in maternal aunt. Benign excisional biopsy of the left breast, 1975. Took estrogen for 20 years. Digital Woman Screen Mammo: July 14, 2020 - Exam #: [id number] Bilateral CC and MLO view(s) were taken. Technologist: Cathy Aguirre, Technologist Prior study comparison: July 12, 2019, bilateral digital woman screen mammo performed at [facility]. June 20, 2018, bilateral digital woman screen mammo performed at [facility]. March 09, 2017, digital woman screen mammo performed at [facility]. FINDINGS: There are scattered fibroglandular densities. The Volpara volumetric breast density category is:B. There has been no change in the appearance of the mammogram from the prior studies. There is a mild amount of scattered fibroglandular density which is fairly symmetric. There is no interval development of dominant mass, architectural distortion, or grouped microcalcification suggestive of malignancy. 3-D tomosynthesis shows no additional findings. Assessment: BI-RADS/ACR category 1 mammogram. Negative Mammogram. Recommendation Routine screening mammogram of both breasts in 1 year (for women over age 40). This patient's [facility] Lifetime Breast Cancer Risk is estimated at 7.4 %. This mammogram was interpreted with the aid of an FDA-approved computer-aided dectection system. Electronically Signed By: Chet Sharif MD 07/14/20 [id number]
== END ==
LOC: M WHC 10:09
PROVIDERS: ATTEND Nurse Practitioner Family
DX: Z12.31 Encounter for screening mammogram for malignant neoplasm of breast (principal)

== ENCOUNTER → 2020-08-06 | Outpatient (CLI) | payer BC ==
[~2020-08-06] MED LIST changes: +GASTROGRAFIN SOLUTION 30ML (Q9963) As Ordered ONE; +ISOVUE-370 76% 100ML VIAL As Ordered ONE
[2020-08-06 10:53] LABS: BASO # 0.1 10^3/uL (0.0-0.2); BASO % 1.1 % (0.0-1.0); EOS # 0.3 10^3/uL (0.0-0.5); EOS % 3.9 % (0.0-3.0); HEMATOCRIT 45.1 % (36.0-47.0); HEMOGLOBIN 15.2 g/dl (12.0-15.5); LYMPH # 2.3 10^3/uL (1.5-5.0); LYMPH % 32.9 % (24.0-44.0); MEAN CORPUSCULAR HEMOGLOBIN 31.7 pg (27.0-33.0); MEAN CORPUSCULAR HGB CONC 33.7 g/dl (32.0-36.5); MEAN CORPUSCULAR VOLUME 94.2 fl (80.0-96.0); MONO # 0.5 10^3/uL (0.0-0.8); NEUTROPHILS # 3.8 10^3/uL (1.5-8.5); NEUTROPHILS % 54.8 % (36.0-66.0); PLATELET COUNT, AUTOMATED 243 10^3/uL (150-450); RED BLOOD COUNT 4.79 10^6/uL (4.00-5.40)
[2020-08-06 11:22] LABS: ALBUMIN 4.2 GM/DL (3.2-5.2); ALT/SGPT 32 U/L (12-78); BILIRUBIN,TOTAL 0.5 MG/DL (0.2-1.0); BLOOD UREA NITROGEN 22 MG/DL (7-18); CALCIUM LEVEL 9.6 MG/DL (8.8-10.2); CARBON DIOXIDE LEVEL 26 MEQ/L (21-32); CHLORIDE LEVEL 107 MEQ/L (98-107); CREATININE FOR GFR 0.86 MG/DL (0.55-1.30); GLOMERULAR FILTRATION RATE > 60.0 (>45); GLUCOSE, FASTING 130 MG/DL (70-100); POTASSIUM SERUM 4.4 MEQ/L (3.5-5.1); SODIUM LEVEL 139 MEQ/L (136-145); TOTAL PROTEIN 7.5 GM/DL (6.4-8.2)
--- NOTE | 2020-08-06 12:54 | REP ---
INDICATION: WORSENING ABD PAIN LAB 1ST CT 2ND. COMPARISON: Abdomen/pelvis CT dated 06/13/2020 TECHNIQUE: Abdomen/pelvis CT with IV and bowel contrast FINDINGS: The visualized lung mccartney are unremarkable. The hepatic parenchyma is homogeneous. The gallbladder, pancreas and spleen are normal size and unremarkable. The adrenals and kidneys are unremarkable. The abdominal aorta is unremarkable. There is no periaortic adenopathy or mass. There is slightly increased radiodensity in the mid mesentery suggestive of panniculitis. There is no focal fluid collection. Pelvis: There is a hysterectomy. The vaginal cuff and adnexa are unremarkable. The bladder is unremarkable. There is no adenopathy or ascites. The pelvic bowel loops are unremarkable. The appendix is not identified, however there is no pericecal inflammation. IMPRESSION: Faintly increased radiodensity in the central mesentery suggestive of panniculitis. No ascites, adenopathy or mass. Hysterectomy. Otherwise, essentially negative abdomen/pelvis CT. <Electronically signed by Santosh Lenz > 08/06/20 [id number]
== END ==
LOC: M LAB 10:13
PROVIDERS: ATTEND Nurse Practitioner Family
DX: R10.9 Unspecified abdominal pain (principal)
CPT/HCPCS: 36415; 74177; 80053; 85025; Q9963; Q9967

== ENCOUNTER → 2020-08-06 | Outpatient (REF) | payer BC ==
[~2020-08-06] MED LIST changes: -GASTROGRAFIN SOLUTION 30ML (Q9963) As Ordered ONE; -ISOVUE-370 76% 100ML VIAL As Ordered ONE
== END ==
LOC: M SFHCLERA 09:26
PROVIDERS: ATTEND Nurse Practitioner Family
DX: K57.92 Diverticulitis of intestine, part unspecified, without perforation or abscess without bleeding (principal); R10.9 Unspecified abdominal pain

== ENCOUNTER → 2020-08-21 | Outpatient (CLI) | payer BC ==
--- NOTE | 2020-08-21 16:26 | REP ---
INDICATION: LEFT UPPER QUADRANT PAIN *LABS 1ST*. COMPARISON: Two view chest of 07/19/2019 TECHNIQUE: Three views FINDINGS: Supine and upright views of the abdomen show the intestinal gas pattern to be nonspecific. Gas and stool is seen throughout the colon within the rectosigmoid region. The organ silhouettes insofar as delineated appear unremarkable. No abdominal calcific densities are seen within the abdomen or pelvis. The accompanying single frontal view of the chest shows no free subdiaphragmatic air, cardiomegaly, infiltrates or effusions. IMPRESSION: Nonspecific intestinal gas pattern. No evidence of acute disease <Electronically signed by Domo Shah > 08/21/20 [id number]
[2020-08-21 17:28] LABS: BASO # 0.1 10^3/uL (0.0-0.2); BASO % 1.1 % (0.0-1.0); EOS # 0.3 10^3/uL (0.0-0.5); EOS % 2.7 % (0.0-3.0); HEMATOCRIT 45.9 % (36.0-47.0); HEMOGLOBIN 15.1 g/dl (12.0-15.5); LYMPH # 3.1 10^3/uL (1.5-5.0); LYMPH % 30.2 % (24.0-44.0); MEAN CORPUSCULAR HEMOGLOBIN 31.3 pg (27.0-33.0); MEAN CORPUSCULAR HGB CONC 32.9 g/dl (32.0-36.5); MEAN CORPUSCULAR VOLUME 95.2 fl (80.0-96.0); MONO # 0.8 10^3/uL (0.0-0.8); MONO % 8.1 % (2.0-8.0); NEUTROPHILS # 5.9 10^3/uL (1.5-8.5); NEUTROPHILS % 57.5 % (36.0-66.0); PLATELET COUNT, AUTOMATED 263 10^3/uL (150-450); RED BLOOD COUNT 4.82 10^6/uL (4.00-5.40); WHITE BLOOD COUNT 10.3 10^3/uL (4.0-10.0)
[2020-08-21 17:46] LABS: ALBUMIN 4.3 GM/DL (3.2-5.2); ALT/SGPT 35 U/L (12-78); BILIRUBIN,TOTAL 0.5 MG/DL (0.2-1.0); BLOOD UREA NITROGEN 15 MG/DL (7-18); CALCIUM LEVEL 9.7 MG/DL (8.8-10.2); CARBON DIOXIDE LEVEL 30 MEQ/L (21-32); CHLORIDE LEVEL 104 MEQ/L (98-107); CREATININE FOR GFR 0.88 MG/DL (0.55-1.30); GLOMERULAR FILTRATION RATE > 60.0 (>45); GLUCOSE, FASTING 139 MG/DL (70-100); POTASSIUM SERUM 4.2 MEQ/L (3.5-5.1); SODIUM LEVEL 140 MEQ/L (136-145); TOTAL PROTEIN 7.8 GM/DL (6.4-8.2)
== END ==
LOC: M LAB 16:05
PROVIDERS: ATTEND Physician Assistant Medical
DX: R10.9 Unspecified abdominal pain (principal)

== ENCOUNTER → 2020-08-22 | Outpatient (CLI) | payer BC ==
[~2020-08-22] MED LIST changes: +APPL300T4 PO; +CVS1CAP2 PO; +D31000TA2 PO; +GASTROGRAFIN SOLUTION 30ML (Q9963) As Ordered ONE; +GOOD81CH2 PO; +ISOVUE-370 76% 100ML VIAL As Ordered ONE; +VITMTA PO
--- NOTE | 2020-08-22 13:42 | REP ---
INDICATION: ABD PAIN, ELEVATED WBC. COMPARISON: 08/06/2020, 06/13/2020, 02/28/2015 TECHNIQUE: Axial contrast-enhanced images from the lung bases to the pubic symphysis using oral and 100 cc Isovue 370 intravenous contrast material. Precontrast images of the abdomen along with coronal and sagittal reformations obtained.. This CT examination was performed using the following dose reduction techniques: Automated exposure control, adjustment of mA and/or kv according to the patient's size, and the use of iterative reconstruction technique. FINDINGS: Liver demonstrates fatty infiltration without focal hepatic lesion. Spleen/splenule, pancreas, gallbladder, bilateral adrenal glands and kidneys are normal. Small and large bowel without obstruction or obvious acute inflammatory process. Colonic diverticula noted without acute diverticulitis. There is subtle haziness to the central mesentery with few scattered lymph nodes unchanged through 2014. Pelvis demonstrates normal bladder and prior hysterectomy.. No ascites. No free air. No intraperitoneal or retroperitoneal adenopathy. Abdominal aorta demonstrates atherosclerotic changes without aneurysm or dissection. Musculoskeletal structures are intact and without acute osseous abnormality. Lung bases are clear. IMPRESSION: 1. Subtle area of infiltration with few lymph nodes in the central mesentery is nonspecific, possibly related to symptoms, but also appears stable/similar through 2015. Findings are nonspecific. 2. No further acute abdominopelvic pathology appreciated. 3. Hepatosteatosis. 4. Few scattered diverticula without acute diverticulitis. <Electronically signed by Curtis Gill > 08/22/20 [id number]
== END ==
LOC: M RAD 11:47
PROVIDERS: ATTEND Physician Assistant Medical
DX: R10.12 Left upper quadrant pain (principal); R10.32 Left lower quadrant pain; D72.829 Elevated white blood cell count, unspecified; K76.0 Fatty (change of) liver, not elsewhere classified
CPT/HCPCS: 74178; Q9963; Q9967

== ENCOUNTER 2020-09-01 08:16 | Day surgery (SDC) | payer BC ==
[~2020-09-01] VITALS: Ht 165.1 cm; Wt 107.0 kg
[~2020-09-01 08:16] MED LIST changes: -GASTROGRAFIN SOLUTION 30ML (Q9963) As Ordered ONE; -ISOVUE-370 76% 100ML VIAL As Ordered ONE; +NS 1,000 ML IV ONE
--- NOTE | 2020-09-01 09:40 | ROOR ---
Patient Name: Caity Robin Procedure Date: 09/01/2020 9:25 AM Date of : 1955 Age: 65 Room: [facility] Gender: Female Note Status: Finalized Procedure: Upper GI endoscopy Indications: Heartburn, Unexplained chest pain Providers: Dread LEVIN MD Referring MD: Jenny HUIZAR Requesting Provider: Medicines: Monitored Anesthesia Care Complications: No immediate complications. Procedure: Pre-Anesthesia Assessment: - The heart rate, respiratory rate, oxygen saturations, blood pressure, adequacy of pulmonary ventilation, and response to care were monitored throughout the procedure. The Endoscope was introduced through the mouth, and advanced to the second part of duodenum. The upper GI endoscopy was accomplished without difficulty. The patient tolerated the procedure well. Findings: The Z-line was variable and was found 39 cm from the incisors. This was biopsied with a cold forceps for histology. The examined esophagus was normal. Small Hiatal Hernia. The entire examined stomach was normal. (large volume, compliant) The examined duodenum was normal. Impression: - Normal esophagus. with Z-line variable, 39 cm from the incisors. Biopsied. - Normal stomach with Small Hiatal Hernia. - Normal examined duodenum. Recommendation: - Observe patient's clinical course. - Continue present medications. Procedure Code(s): --- Professional --- 74825, Esophagogastroduodenoscopy, flexible, transoral; with biopsy, single or multiple Diagnosis Code(s): --- Professional --- R07.9, Chest pain, unspecified R12, Heartburn K22.8, Other specified diseases of esophagus CPT copyright 2019 [employer]. All rights reserved. The codes documented in this report are preliminary and upon thread pulling machine attendant review may be revised to meet current compliance requirements. Dread Levin MD Dread LEVIN MD 09/01/2020 9:40:05 AM Electronically signed by Dread LEVIN MD Number of Addenda: 0 Note Initiated On: 09/01/2020 9:25 AM Estimated Blood Loss: Estimated blood loss: none.
--- NOTE | 2020-09-01 09:54 | ROOR ---
Patient Name: Caity Robin Procedure Date: 09/01/2020 9:26 AM Date of : 1955 Age: 65 Room: [facility] Gender: Female Note Status: Finalized Procedure: Colonoscopy Indications: Abdominal pain in the left lower quadrant, Abdominal pain in the left upper quadrant Providers: Dread LEVIN MD Referring MD: Jenny HUIZAR Requesting Provider: Medicines: Monitored Anesthesia Care Complications: No immediate complications. Procedure: Pre-Anesthesia Assessment: - The heart rate, respiratory rate, oxygen saturations, blood pressure, adequacy of pulmonary ventilation, and response to care were monitored throughout the procedure. The Colonoscope was introduced through the anus and advanced to the terminal ileum, with identification of the appendiceal orifice and IC valve. The colonoscopy was performed without difficulty. The patient tolerated the procedure well. The quality of the bowel preparation was good. Findings: The perianal and digital rectal examinations were normal. Mild sigmoid diverticulosis and small internal hemorrhoids. The exam was otherwise without abnormality on direct and retroflexion views. Impression: - Mild sigmoid diverticulosis and small internal hemorrhoids. - The examination was otherwise normal on direct and retroflexion views. - No specimens collected. Recommendation: - Continue present medications. Procedure Code(s): --- Professional --- 49136, Colonoscopy, flexible; diagnostic, including collection of specimen(s) by brushing or washing, when performed (separate procedure) Diagnosis Code(s): --- Professional --- R10.32, Left lower quadrant pain R10.12, Left upper quadrant pain CPT copyright 2019 [employer]. All rights reserved. The codes documented in this report are preliminary and upon seo marketing specialist review may be revised to meet current compliance requirements. Dread Levin MD Dread LEVIN MD 09/01/2020 9:53:47 AM Electronically signed by Dread LEVIN MD Number of Addenda: 0 Note Initiated On: 09/01/2020 9:26 AM Estimated Blood Loss: Estimated blood loss: none.
[2020-09-01] MEDS ORDERED: propofoL 200 MG/20 ML VIAL As Ordered ONE (09:58)
[2020-09-01] MEDS ORDERED: LIDOCAINE 2% 100MG/5ML SDV (FOR ANES.) As Ordered ONE (09:58)
[2020-09-01 10:15] VITALS: BP 147/84
== END 2020-09-01 10:34 | disposition home or self-care (01) ==
LOC: M OPP 08:16
PROVIDERS: ATTEND Internal Medicine Gastroenterology
DX: K64.8 Other hemorrhoids (principal); K57.30 Diverticulosis of large intestine without perforation or abscess without bleeding; R10.32 Left lower quadrant pain; R10.12 Left upper quadrant pain; Z22.8 Carrier of other infectious diseases; K20.90 Esophagitis, unspecified without bleeding; I25.2 Old myocardial infarction; Z95.5 Presence of coronary angioplasty implant and graft; Z79.82 Long term (current) use of aspirin; Z79.899 Other long term (current) drug therapy; Z88.8 Allergy status to other drugs, medicaments and biological substances

== ENCOUNTER → 2020-12-25 | Outpatient (REF) | payer BC ==
[~2020-12-25] MED LIST changes: -NS 1,000 ML IV ONE
== END ==
LOC: M SFHCLERA 15:31
PROVIDERS: ATTEND Nurse Practitioner Family
DX: R35.0 Frequency of micturition (principal)

== ENCOUNTER → 2021-01-13 | Outpatient (REF) | payer BC | LOC: M SFHCLERA 15:45 | PROVIDERS: ATTEND Nurse Practitioner Family | DX: R30.0 Dysuria (principal) ==

== ENCOUNTER → 2021-01-30 | Outpatient (CLI) | payer BC ==
[2021-01-30 11:50] LABS: BASO # 0.1 10^3/uL (0.0-0.2); BASO % 1.8 % (0.0-1.0); EOS # 0.2 10^3/uL (0.0-0.5); EOS % 3.4 % (0.0-3.0); HEMATOCRIT 44.5 % (36.0-47.0); HEMOGLOBIN 14.5 g/dl (12.0-15.5); LYMPH # 2.2 10^3/uL (1.5-5.0); LYMPH % 32.9 % (24.0-44.0); MEAN CORPUSCULAR HEMOGLOBIN 30.8 pg (27.0-33.0); MEAN CORPUSCULAR HGB CONC 32.6 g/dl (32.0-36.5); MEAN CORPUSCULAR VOLUME 94.5 fl (80.0-96.0); MONO # 0.7 10^3/uL (0.0-0.8); MONO % 9.6 % (2.0-8.0); NEUTROPHILS # 3.5 10^3/uL (1.5-8.5); PLATELET COUNT, AUTOMATED 252 10^3/uL (150-450); RED BLOOD COUNT 4.71 10^6/uL (4.00-5.40); WHITE BLOOD COUNT 6.8 10^3/uL (4.0-10.0)
[2021-01-30 12:03] LABS: ALBUMIN 4.1 GM/DL (3.2-5.2); ALT/SGPT 38 U/L (12-78); BILIRUBIN,TOTAL 0.6 MG/DL (0.2-1.0); BLOOD UREA NITROGEN 17 MG/DL (7-18); CALCIUM LEVEL 9.5 MG/DL (8.8-10.2); CARBON DIOXIDE LEVEL 27 MEQ/L (21-32); CHLORIDE LEVEL 106 MEQ/L (98-107); CHOLESTEROL LEVEL 115 MG/DL (<200); CHOLESTEROL RISK RATIO 1.825 (<5); CREATININE FOR GFR 0.93 MG/DL (0.55-1.30); FREE T4 1.07 NG/DL (0.76-1.46); GLOMERULAR FILTRATION RATE > 60.0 (>45); GLUCOSE, FASTING 108 MG/DL (70-100); HDL CHOLESTEROL 63 MG/DL (>40); LDL CHOLESTEROL 29 MG/DL (<100); NON-HDL-C 52 MG/DL; POTASSIUM SERUM 4.7 MEQ/L (3.5-5.1); SODIUM LEVEL 139 MEQ/L (136-145); TOTAL 25(OH) VITAMIN D 30.1 NG/ML (30.0-100.0); TOTAL PROTEIN 7.5 GM/DL (6.4-8.2); TRIGLYCERIDES LEVEL 115 MG/DL (<150)
== END ==
LOC: M WUC 09:29
PROVIDERS: ATTEND Nurse Practitioner Family
DX: E03.9 Hypothyroidism, unspecified (principal); E11.9 Type 2 diabetes mellitus without complications; I10 Essential (primary) hypertension; E55.9 Vitamin D deficiency, unspecified

== ENCOUNTER → 2021-03-12 | Outpatient (CLI) | payer BC ==
[~2021-03-12] MED LIST changes: -EFFI10TA4 PO; +EFFI10TA7 PO
--- NOTE | 2021-03-12 15:23 | DEXAMM ---
INDICATION: OSTEOPOROSIS SCREENING. COMPARISON: None. TECHNIQUE: Bone density was measured using dual-energy x-ray absorptiometry (DEXA). FINDINGS: AP SPINE L1-L4 BMD 1.072 g/cm2 Young Adult T-Score -1.0 Age Matched Z-Score 0.5. LT FEMUR, TOTAL BMD 0.924 g/cm2 Young Adult T-Score -0.7 Age Matched Z-Score 0.4. LT NECK BMD 0.884 g/cm2 Young Adult T-Score -1.1 Age Matched Z-Score 0.3. RT FEMUR, TOTAL BMD 0.915 g/cm2 Young Adult T-Score -0.7 Age Matched Z-Score 0.4. RT NECK BMD 0.926 g/cm2 Young Adult T-Score -0.8 Age Matched Z-Score 0.6. IMPRESSION: There is low bone density of the spine. There is low bone density of the left hip. There is normal bone density of the right hip. FOLLOW-UP: Recommendation for the next bone density exam: 2 years. <Electronically signed by Santosh Zambrano > 03/12/21 [id number]
== END ==
LOC: M WHC 11:04
PROVIDERS: ATTEND Nurse Practitioner Family
DX: Z13.820 Encounter for screening for osteoporosis (principal); M85.852 Other specified disorders of bone density and structure, left thigh; M85.88 Other specified disorders of bone density and structure, other site

== ENCOUNTER → 2021-07-03 | Outpatient (CLI) | payer BC ==
[~2021-07-03] MED LIST changes: -D31000TA2 PO; +VITA100093 PO
[2021-07-03 16:21] LABS: HEMATOCRIT 45.1 % (36.0-47.0); HEMOGLOBIN 14.7 g/dl (12.0-15.5); MEAN CORPUSCULAR HEMOGLOBIN 31.4 pg (27.0-33.0); MEAN CORPUSCULAR HGB CONC 32.6 g/dl (32.0-36.5); MEAN CORPUSCULAR VOLUME 96.4 fl (80.0-96.0); PLATELET COUNT, AUTOMATED 240 10^3/uL (150-450); RED BLOOD COUNT 4.68 10^6/uL (4.00-5.40); WHITE BLOOD COUNT 7.7 10^3/uL (4.0-10.0)
[2021-07-03 16:36] LABS: ALBUMIN 4.1 GM/DL (3.2-5.2); ALT/SGPT 36 U/L (12-78); BILIRUBIN,TOTAL 0.9 MG/DL (0.2-1.0); BLOOD UREA NITROGEN 14 MG/DL (7-18); CALCIUM LEVEL 9.1 MG/DL (8.8-10.2); CARBON DIOXIDE LEVEL 28 MEQ/L (21-32); CHLORIDE LEVEL 104 MEQ/L (98-107); CREATININE FOR GFR 0.91 MG/DL (0.55-1.30); GLOMERULAR FILTRATION RATE > 60.0 (>45); GLUCOSE, FASTING 110 MG/DL (70-100); NT-PRO BNP 53 PG/ML (<125); POTASSIUM SERUM 4.6 MEQ/L (3.5-5.1); SODIUM LEVEL 139 MEQ/L (136-145); TOTAL PROTEIN 7.5 GM/DL (6.4-8.2)
== END ==
LOC: M WUC 10:54
PROVIDERS: ATTEND Physician Assistant
DX: R06.02 Shortness of breath (principal)

== ENCOUNTER → 2021-07-31 | Outpatient (CLI) | payer BC ==
[2021-07-31 13:51] LABS: HEMOGLOBIN A1c 6.4 %
== END ==
LOC: M WUC 09:46
PROVIDERS: ATTEND Student in an Organized Health Care Education/Training Program
DX: E11.9 Type 2 diabetes mellitus without complications (principal)

== ENCOUNTER → 2021-08-03 | Outpatient (REF) | payer BC | LOC: M LAB REF 15:39 | PROVIDERS: ATTEND Physician Assistant | DX: R35.0 Frequency of micturition (principal) ==

== ENCOUNTER → 2021-08-18 | Outpatient (CLI) | payer BC | LOC: M WHC 09:29 | PROVIDERS: ATTEND Nurse Practitioner Family | DX: Z12.31 Encounter for screening mammogram for malignant neoplasm of breast (principal) ==

== ENCOUNTER → 2021-11-24 | Outpatient (CLI) | payer BC | LOC: M RAD 12:24 | PROVIDERS: ATTEND Physician Assistant | DX: Z12.2 Encounter for screening for malignant neoplasm of respiratory organs (principal); Z79.891 Long term (current) use of opiate analgesic ==

== ENCOUNTER → 2021-12-15 | Outpatient (CLI) | payer BC ==
[~2021-12-15] MED LIST changes: +METHACHOLINE KIT (J7674) INH ONE
== END ==
LOC: M CARPUL 09:11
PROVIDERS: ATTEND Physician Assistant
DX: R06.00 Dyspnea, unspecified (principal)
CPT/HCPCS: 94070; J7674

== ENCOUNTER → 2022-08-12 | Outpatient (CLI) | payer MEDICARE, BC ==
[~2022-08-12] MED LIST changes: -GOOD81CH2 PO; -METHACHOLINE KIT (J7674) INH ONE; +RA A81CH3 PO
[2022-08-12 13:27] LABS: FOLATE 8.7 NG/ML (>5.4); HEMOGLOBIN A1c 6.1 % (4.0-6.0)
== END ==
LOC: M WUC 11:08
PROVIDERS: ATTEND Student in an Organized Health Care Education/Training Program
DX: R20.2 Paresthesia of skin (principal); E11.9 Type 2 diabetes mellitus without complications

== ENCOUNTER → 2022-10-15 | Outpatient (CLI) | payer MEDICARE, BC ==
[~2022-10-15] MED LIST changes: +ASPI-663 PO; -RA A81CH3 PO
== END ==
LOC: M WHC 15:01
PROVIDERS: ATTEND Student in an Organized Health Care Education/Training Program
DX: Z12.31 Encounter for screening mammogram for malignant neoplasm of breast (principal)

== ENCOUNTER → 2022-12-10 | Outpatient (CLI) | payer BC | LOC: M RAD 10:08 | PROVIDERS: ATTEND Physician Assistant | DX: R91.1 Solitary pulmonary nodule (principal) ==

== ENCOUNTER → 2022-12-31 | Outpatient (CLI) | payer BC ==
[2022-12-31 14:18] LABS: BASO # 0.1 10^3/uL (0.0-0.2); BASO % 1.1 % (0.0-1.0); EOS # 0.2 10^3/uL (0.0-0.5); EOS % 2.7 % (0.0-3.0); HEMATOCRIT 45.4 % (36.0-47.0); HEMOGLOBIN 14.8 g/dl (12.0-15.5); LYMPH # 2.4 10^3/uL (1.5-5.0); LYMPH % 27.6 % (24.0-44.0); MEAN CORPUSCULAR HEMOGLOBIN 31.4 pg (27.0-33.0); MEAN CORPUSCULAR HGB CONC 32.6 g/dl (32.0-36.5); MEAN CORPUSCULAR VOLUME 96.4 fl (80.0-96.0); MONO # 0.7 10^3/uL (0.0-0.8); MONO % 8.5 % (2.0-8.0); NEUTROPHILS # 5.1 10^3/uL (1.5-8.5); NEUTROPHILS % 59.7 % (36.0-66.0); PLATELET COUNT, AUTOMATED 249 10^3/uL (150-450); RED BLOOD COUNT 4.71 10^6/uL (4.00-5.40); WHITE BLOOD COUNT 8.5 10^3/uL (4.0-10.0)
[2022-12-31 14:30] LABS: FREE T4 1.34 NG/DL (0.89-1.76); THYROID STIMULATING HORMONE 1.481 uIU/ML (0.55-4.78)
[2022-12-31 14:31] LABS: ALBUMIN 4.1 G/DL (3.2-5.2); ALKALINE PHOSPHATASE 101 U/L (46-116); ALT/SGPT 31 U/L (7.0-40); AST/SGOT 14 U/L (<34); BILIRUBIN,TOTAL 0.7 MG/DL (0.3-1.2); BLOOD UREA NITROGEN 17 MG/DL (9-23); CALCIUM LEVEL 9.5 MG/DL (8.3-10.6); CARBON DIOXIDE LEVEL 27 MMOL/L (20-31); CHLORIDE LEVEL 104 MMOL/L (98-107); CHOLESTEROL LEVEL 119 MG/DL (<200); CHOLESTEROL RISK RATIO 1.82 (<5); GLOMERULAR FILTRATION RATE > 60.0 (>45); GLUCOSE, FASTING 114 MG/DL (74-106); HDL CHOLESTEROL 65.2 MG/DL (>40); NON-HDL-C 53.8 MG/DL; POTASSIUM SERUM 4.9 MMOL/L (3.5-5.1); SODIUM LEVEL 138 MMOL/L (136-145); TRIGLYCERIDES LEVEL 129 MG/DL (<150)
== END ==
LOC: M WUC 09:35
PROVIDERS: ATTEND Student in an Organized Health Care Education/Training Program
DX: R73.01 Impaired fasting glucose (principal); I10 Essential (primary) hypertension; E03.9 Hypothyroidism, unspecified

== ENCOUNTER → 2023-06-09 | Outpatient (CLI) | payer BC ==
[~2023-06-09] MED LIST changes: +IRBE150T27 PO; -IRBE150T7 PO
[2023-06-09 10:14] LABS: BASO # 0.1 10^3/uL (0.0-0.2); BASO % 1.6 % (0.0-1.0); EOS # 0.3 10^3/uL (0.0-0.5); EOS % 3.5 % (0.0-3.0); HEMATOCRIT 44.8 % (36.0-47.0); HEMOGLOBIN 14.9 g/dl (12.0-15.5); LYMPH # 2.4 10^3/uL (1.5-5.0); LYMPH % 29.8 % (24.0-44.0); MEAN CORPUSCULAR HEMOGLOBIN 31.6 pg (27.0-33.0); MEAN CORPUSCULAR HGB CONC 33.3 g/dl (32.0-36.5); MEAN CORPUSCULAR VOLUME 94.9 fl (80.0-96.0); MONO # 0.7 10^3/uL (0.0-0.8); NEUTROPHILS # 4.5 10^3/uL (1.5-8.5); NEUTROPHILS % 55.8 % (36.0-66.0); PLATELET COUNT, AUTOMATED 277 10^3/uL (150-450); RED BLOOD COUNT 4.72 10^6/uL (4.00-5.40)
[2023-06-09 10:44] LABS: TOTAL 25(OH) VITAMIN D 28.9 NG/ML (20.0-100.0)
[2023-06-09 10:45] LABS: ALBUMIN 4.3 G/DL (3.2-5.2); ALKALINE PHOSPHATASE 115 U/L (46-116); ALT/SGPT 33 U/L (7.0-40); AST/SGOT 21 U/L (<34); BILIRUBIN,TOTAL 0.6 MG/DL (0.3-1.2); BLOOD UREA NITROGEN 25 MG/DL (9-23); CALCIUM LEVEL 9.5 MG/DL (8.3-10.6); CARBON DIOXIDE LEVEL 29 MMOL/L (20-31); CHLORIDE LEVEL 102 MMOL/L (98-107); CHOLESTEROL LEVEL 124 MG/DL (<200); CHOLESTEROL RISK RATIO 1.97 (<5); CREATININE FOR GFR 0.86 MG/DL (0.55-1.30); GLOMERULAR FILTRATION RATE > 60.0 (>45); GLUCOSE, FASTING 114 MG/DL (74-106); HDL CHOLESTEROL 62.7 MG/DL (>40); LDL CHOLESTEROL 42.1 MG/DL (<100); NON-HDL-C 61.3 MG/DL; POTASSIUM SERUM 4.3 MMOL/L (3.5-5.1); SODIUM LEVEL 140 MMOL/L (136-145); TOTAL PROTEIN 7.6 G/DL (5.7-8.2); TRIGLYCERIDES LEVEL 96 MG/DL (<150)
[2023-06-09 10:49] LABS: HEMOGLOBIN A1c 6.1 % (4.0-6.0)
[2023-06-09 11:12] LABS: CREATININE, URINE 103.9 MG/DL
[2023-06-09 11:13] LABS: MALB URINE SIEMENS < 3.0 MG/L; MAU/CREAT RATIO 2.8 MCG/MG (0.0-30.0)
== END ==
LOC: M WUC 08:07
PROVIDERS: ATTEND Physician Assistant
DX: E03.9 Hypothyroidism, unspecified (principal); E11.9 Type 2 diabetes mellitus without complications

== ENCOUNTER → 2023-06-16 | Outpatient (REF) | payer BC ==
[2023-06-16 18:34] LABS: RSV AMPLIFICATION NEGATIVE (NEGATIVE)
== END ==
LOC: M SFHCLERA 16:29
PROVIDERS: ATTEND Physician Assistant
DX: J22 Unspecified acute lower respiratory infection (principal)

== ENCOUNTER → 2023-07-08 | Outpatient (CLI) | payer BC | LOC: M PLAIMG 12:48 | PROVIDERS: ATTEND Physician Assistant | DX: R91.8 Other nonspecific abnormal finding of lung field (principal) ==

== ENCOUNTER → 2023-10-19 | Outpatient (CLI) | payer BC ==
[~2023-10-19] MED LIST changes: +fentaNYL 100 MCG/2 ML INJECTION As Ordered ONE; +propofoL 200 MG/20 ML VIAL As Ordered ONE
== END ==
LOC: M WHC 09:38
PROVIDERS: ATTEND Physician Assistant
DX: Z12.31 Encounter for screening mammogram for malignant neoplasm of breast (principal); Z13.820 Encounter for screening for osteoporosis; Z78.0 Asymptomatic menopausal state
CPT/HCPCS: 77063; 77067; 77080; J3010

== ENCOUNTER 2023-12-12 11:07 | Day surgery (SDC) | payer BC ==
[~2023-12-12] VITALS: Ht 165.1 cm; Wt 108.5 kg
[~2023-12-12 11:07] MED LIST changes: +ARNU1INH3 INH; +PROA1AER2 INH; -fentaNYL 100 MCG/2 ML INJECTION As Ordered ONE; -propofoL 200 MG/20 ML VIAL As Ordered ONE
[2023-12-12] MEDS: NS 1,000 ML IV ONE (11:17)
[2023-12-12] MEDS ORDERED: LIDOCAINE 2% 100MG/5ML SDV (FOR ANES.) As Ordered ONE (11:34)
[2023-12-12] MEDS ORDERED: propofoL 200 MG/20 ML VIAL As Ordered ONE (11:34)
[2023-12-12 12:18] VITALS: BP 144/81; TEMP 97.4; O2SAT 99
== END 2023-12-12 12:30 | disposition home or self-care (01) ==
LOC: M OPP 11:07
PROVIDERS: ATTEND Internal Medicine Gastroenterology
DX: Z12.11 Encounter for screening for malignant neoplasm of colon (principal); Z86.010 Personal history of colon polyps; D12.0 Benign neoplasm of cecum; K64.8 Other hemorrhoids; K57.30 Diverticulosis of large intestine without perforation or abscess without bleeding; K44.9 Diaphragmatic hernia without obstruction or gangrene; Z79.02 Long term (current) use of antithrombotics/antiplatelets; Z79.51 Long term (current) use of inhaled steroids; Z79.82 Long term (current) use of aspirin; Z79.84 Long term (current) use of oral hypoglycemic drugs; Z79.890 Hormone replacement therapy; Z79.899 Other long term (current) drug therapy; G47.30 Sleep apnea, unspecified; Z99.89 Dependence on other enabling machines and devices; Z95.5 Presence of coronary angioplasty implant and graft; Z88.0 Allergy status to penicillin; Z88.1 Allergy status to other antibiotic agents; Z88.8 Allergy status to other drugs, medicaments and biological substances

== ENCOUNTER → 2024-02-01 | Outpatient (CLI) | payer BC ==
[~2024-02-01] MED LIST changes: +E-Z-PAQUE 96% w/w SUSP 176GM BTL As Ordered ONE; -MULT200T7 PO; +MULT200T9 PO
== END ==
LOC: M RAD 10:25
PROVIDERS: ATTEND Physician Assistant Medical
DX: I88.0 Nonspecific mesenteric lymphadenitis (principal)

== ENCOUNTER → 2025-04-15 | Outpatient (CLI) | payer MEDICARE, BC ==
[~2025-04-15] MED LIST changes: -E-Z-PAQUE 96% w/w SUSP 176GM BTL As Ordered ONE; -EFFI10TA7 PO; +ESOM20CA25 PO; -IBUP-1022 PO; +IBUP600T42 PO; +ISOVUE-370 76% 100 ML VIAL As Ordered ONE; +LEVO75TA4 PO; +METF500T13 PO; +MULTTAB61 PO; +PRAS10TA12 PO; +TURM1CAP7 PO; -TURM500C3 PO
== END ==
LOC: M RAD 12:46
PROVIDERS: ATTEND Physician Assistant
DX: R91.8 Other nonspecific abnormal finding of lung field (principal); J98.11 Atelectasis
CPT/HCPCS: 71250; 74177; Q9967

== ENCOUNTER → 2025-04-15 | Outpatient (CLI) | payer BC, MEDICARE ==
[~2025-04-15] MED LIST changes: -ISOVUE-370 76% 100 ML VIAL As Ordered ONE
== END ==
LOC: M RAD 12:42
PROVIDERS: ATTEND Specialist
DX: J98.11 Atelectasis (principal)